=== PATIENT | female | born 1990 | race Caucasian/White ===

== ENCOUNTER 2021-11-02 22:21 | Inpatient (IN) | payer BC, SELFPAY ==
[2021-11-02] MEDS ORDERED: NA CHLORIDE 0.9% 1,000 ML ONE (23:07)
[2021-11-02] MEDS ORDERED: ONDANSETRON 4 MG/2 ML VIAL ONE (23:07)
[2021-11-02] MEDS ORDERED: MORPHINE 4 MG/ML SYR ONE (23:07)
[2021-11-02] MEDS ORDERED: PANTOPRAZOLE 40 MG INJ ONE (23:07)
--- OUTSIDE RECORDS SUMMARY | 2021-11-03 00:32 | XMS REPORT | Clinical Summary ---
:1990 Author Organization [facility] MD [facility] Address [address] [place] [address] Care Team Providers Name Role Phone Chris Estrada MD Unavailable Fernando Estrada MD Unavailable Krystyna Clarke MD Primary Care Provider [phone] Allergies No known active allergies Medications Medication Sig Dispensed Refills Start Date End Date Status mv-min/iron/folic/calcium Take by mouth. 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 Surgical History Surgery Date Site/Laterality Comments DILATION AND CURETTAGE OF 07/21/2009 - 07/20/2010 molar UTERUS ELBOW FRACTURE SURGERY 07/21/1993 - 07/20/1994 Left WISDOM TOOTH EXTRACTION 07/21/2008 - 07/20/2009 Medical History Medical History Date Comments Migraine 2000 Anxiety 2002 Obsessive-compulsive disorder 2012 Mastitis 2017 while nursing Family History Medical History Relation Name Comments Other Maternal Aunt cystic breasts - 2 aunts -Breast cancer Maternal Grandmother Other Mother cystic breasts Stomach cancer Paternal Aunt Ovarian cancer Neg Hx Pancreatic cancer Neg Hx Prostate cancer Neg Hx Relation Name Status Comments Maternal Aunt Maternal Grandmother Mother Paternal Aunt Social History Tobacco Use Types Packs/Day Years Used Date Never Assessed Sex Assigned at Date Recorded Female 08/11/2019 10:43 AM [employer] Obstetrics History Last Filed Vital Signs Not on file Plan of Treatment Health Maintenance Due Date Last Done Comments COVID-19 Vaccination (1) 1995 Results Not on fileafter 11/03/2020 Insurance Payer Benefit Plan / Subscriber ID Effective Dates Phone Addre ss Type Group [employer] [place] POS [id number] 2019-Present [id number] [place] [address] Care Teams Pouncer Relationship Specialty Start Date End Date Chris Estrada, PCP - External Follow Up A 04/0904/09/27 [facility] [place] [address] Chris Estrada, PCP - External Referring 8 04/09/[address] [place] [place] [address] Denisha Clarke PCP - General Breast Surgery 04/09/1804/09 MD Gagandeep [address] [place] [phone]
--- OUTSIDE RECORDS SUMMARY | 2021-11-03 00:36 | XMS REPORT | Continuity of Care Document ---
:1990 Author Organization [facility] t Address [address] [place] [address] Care Team Providers Name Role Phone Tricia BELLE, Krystyna Donis Primary Care Physician [phone] ANUSHKA Attending Clinician Unavailable Ebrahikevon WATCH REPAIR TECHNICIAN Attending Clinician TOMAS Attending Clinician Unavailable Elizabeth JARAMILLO Attending Clinician Fe CELAYAP Attending Clinician FE Attending Clinician Unavailable RADIOLOGY Attending Clinician Unavailable Francine BELLE, N Attending Clinician Anushka BELLE Attending Clinician Only, Test Attending Clinician Unavailable Corey BELLE Attending Clinician Nayan BELLE, E Attending Clinician Doctor Unassigned, Name Attending Clinician Unavailable Chad CELAYAP, F Attending Clinician Dylan WATCH REPAIR TECHNICIAN Attending Clinician ANUSHKA Admitting Clinician Unavailable Anushka BELLE Admitting Clinician Payers Payer Name Policy Type Policy Number Effective Date Expiration Date Abhilash briggs CIGSIMBA II [id number] 2020 00:00:00 Problems Condition Condition Condition Status Onset Resolution Last Treating Co mments Source Name Details Category Date Date Treatment Clinician Date Nausea and Nausea and Disease Active Overview : Univers vomiting, vomiting, 08 Formattin i ty of intractabi intractabi 00:00: g of this [place] lity of lity of 00 note Medical vomiting vomiting might be Bran ch not not different specified, specified, from the unspecifie unspecifie original. d vomiting d vomiting Added type type automatic ally from request for surgery [id number] Abdominal Abdominal Disease Active Overview: Univers pain, pain, 08 Formattin ity of epigastric epigastric 00:00: g of this [place] 00 note Medical might be Branch different from the original. Added automatic ally from request for surgery [id number] Mammograph Mammograph Disease Active M D ic mass of ic mass of 9-30 An derso right right 00:00: n breast breast 00 39 weeks 39 weeks Disease Active Unive rs gestation gestation 8-04 ity of of of 00:00: [place] 00 [facility] Rh Rh Disease Active Univers negative negative 8-04 ity of status status 00:00: [place] during during 00 Medical Bran ch in third in third trimester, trimester, antepartum antepartum Group B Group B Disease Active Univers streptococ streptococ 8-04 it y of [facility] 00:00: [place] infection infection 00 [facility] during during Branch Disease Active Uni vers 3-03 ity of 00:00: [place] 00 [facility] 15 weeks 15 weeks Disease Active Unive rs gestation gestation 2-15 ity of of of 00:00: [place] 00 [facility] Supervisio Supervisio Disease Active U nivers n of high n of high 2-15 ity of risk risk 00:00: [place] 00 [facility] in second in second Bran ch trimester trimester Nausea and Nausea and Disease Active U nivers vomiting vomiting 2-15 ity of during during 00:00: [place] 00 [facility] prior to prior to Branch 22 weeks 22 weeks gestation gestation Dizziness Dizziness Disease Active Uni vers 2-15 ity of 00:00: [place] 00 Medical Branch Headache Headache Disease Active Unive rs 2-15 ity of 00:00: [place] 00 [facility] Pain Pain Disease Active 2014-07 Univers pelvic pelvic 2-07 ity of 00:00: [place] 00 [facility] Disease Active 2014-07 Uni vers with with 2-07 ity of inconclusi inconclusi [place] Medica l viability viability Bran ch Allergies, Adverse Reactions, Alerts Allergy Allergy Status Severity Reaction(s) Onset Inactive Treating Comm ents Source Name Type Date Date Clinician NO KNOWN Drug Active Univers ALLERGIE Class ity of S [facility] Family History Family Member Diagnosis Comments Start Date Stop Date Source Family member Ovarian cancer MD Cecilio butler Family member Pancreatic cancer MD Davey nderson Family member Prostate cancer And ersbertrand Maternal aunt Other MD Spicer Maternal grandmother -Breast cancer MD Spicer Natural mother Other MD Christianne friedman Paternal aunt Stomach cancer MD Cecilio butler Social History Social Habit Start Date Stop Date Quantity Comments Source Exposure to Not sure [facility] SARS-CoV-2 (event) [facility] Branch Alcohol intake 2021-02-18 2021-02-18 0 /d [facility] 00:00:00 00:00:00 [facility] Tobacco use and 2015-06-19 2015-06-19 Never used [facility] exposure 00:00:00 00:00:00 [facility] Sex [birth year] [facility] 00:00:00 00:00:00 [facility] Smoking Status Start Date Stop Date Source Never smoker [facility] Medications Ordered Filled Start Stop Current Ordering Indication Dosage Frequency Signature Comments Components Source Medication Medication Date Date Medication? Clinician (SIG) Name Name FLUOXETINE Yes Take by Uni vers HCL (PROZAC 8-01 mouth. ity of ORAL) 17:00: [address] FLUOXETINE Yes Take by Uni vers HCL (PROZAC 8-01 mouth. ity of ORAL) 12:00: [address] FLUOXETINE Yes Take by Uni vers HCL (PROZAC 1-15 mouth. ity of ORAL) 17:18: [address] FLUOXETINE Yes Take by Uni vers HCL (PROZAC 1-15 mouth. ity of ORAL) 17:18: [address] FLUOXETINE Yes Take by Uni vers HCL (PROZAC 1-15 mouth. ity of ORAL) 17:18: [place] 24 Medical Branch lactated 2020- No 1000mL at 42 Unive rs ringers IV 1-15 01-15 mL/hr, ity of infusion 14:45: 14:58 1,000 mL, Demetrius as 1,000 mL 00 :00 IV Medical Infusion, Branch ONCE, 1 dose, 08/04/20 at 0845, Routine, DSU Pre-op pantoprazol Yes [id number] 20mg Take 1 Univers e 20 mg EC 1-15 tablet by ity of tablet 00:00: mouth [place] 00 daily. Medical Branch pantoprazol Yes [id number] 20mg Take 1 Univers e 20 mg EC 1-15 tablet by ity of tablet 00:00: mouth [place] 00 daily. Medical Branch pantoprazol Yes [id number] 20mg Take 1 Univers e 20 mg EC 1-15 tablet by ity of tablet 00:00: mouth [place] 00 daily. Medical Branch pantoprazol Yes [id number] 20mg Take 1 Univers e 20 mg EC 1-15 tablet by ity of tablet 00:00: mouth [place] 00 daily. Medical Branch pantoprazol Yes [id number] 20mg Take 1 Univers e 20 mg EC 1-15 tablet by ity of tablet 00:00: mouth [place] 00 daily. Medical Branch pantoprazol 2020- No [id number] 20mg Take 1 Univers e 1-15 01-15 tablet by ity of (PROTONIX) 00:00: 00:00 mouth [place] 20 mg EC 00 :00 daily. Medical [facility] Branch FLUOXETINE Yes Take by Uni vers HCL (PROZAC 1-07 mouth. ity of ORAL) 20:35: [place] [address] Medical Branch FLUOXETINE Yes Take by Uni vers HCL (PROZAC 1-07 mouth. ity of ORAL) 20:35: [place] [address] Medical [place] FLUOXETINE Yes Take by Uni vers HCL (PROZAC 1-07 mouth. ity of ORAL) 20:35: [place] [address] Medical Branch FLUOXETINE Yes Take by Uni vers HCL (PROZAC 1-07 mouth. ity of ORAL) 20:35: [place] [address] Medical [place] cholestyram Yes [id number] 2g Take 0.5 Univers ine 4 gram 1-07 Packets by ity of powder 00:00: mouth 3 [place] (three) Medical times Branch daily with meals. cholestyram Yes [id number] 2g Take 0.5 Univers ine 4 gram 1-07 Packets by ity of powder 00:00: mouth 3 [place] (three) Medical times Branch daily with meals. cholestyram Yes [id number] 2g Take 0.5 Univers ine 4 gram 1-07 Packets by ity of powder 00:00: mouth 3 [place] (three) Medical times Branch daily with meals. cholestyram Yes [id number] 2g Take 0.5 Univers ine 4 gram 1-07 Packets by ity of powder 00:00: mouth 3 [place] (three) Medical times Branch daily with meals. cholestyram Yes [id number] 2g Take 0.5 Univers ine 4 gram 1-07 Packets by ity of powder 00:00: mouth [place] (three) Medical times Branch daily with meals. cholestyram Yes [id number] 2g Take 0.5 Univers ine 4 gram 1-07 Packets by ity of powder 00:00: mouth [place] (three) Medical times Branch daily with meals. cholestyram Yes [id number] 2g Take 0.5 Univers ine 4 gram 1-07 Packets by ity of powder 00:00: mouth 3 [place] (three) Medical times Branch daily with meals. cholestyram Yes [id number] 2g Take 0.5 Univers ine 4 gram 1-07 Packets by ity of powder 00:00: mouth 3 [place] (three) Medical times Branch daily with meals. cholestyram Yes [id number] 2g Take 0.5 Univers ine 4 gram 1-07 Packets by ity of powder 00:00: mouth 3 [place] (three) Medical times Branch daily with meals. ondansetron 2019-07 2020- No 4mg 4 mg, Slow Univers (ZOFRAN 0-28 10-28 IV Push, ity of (PF)) 19:45: 19:07 ONCE, 1 [place] injection 4 00 :00 dose, Wed Med ical mg 05/17/20 Branch at 1445, KIERSTEN morpHINE 2019-07- No 4mg 4 mg, Slow Un vance injection 4 05-17 IV Push, ity of mg 19:45: 19:07 ONCE, 1 [place] 00 :00 dose, [facility] Medical 05/17/20 Branch at 1445, STAT NaCl 0.9% 2019-07- No 1000mL at 999 Uni vers (NS) bolus 0 10-28 mL/hr, ity of infusion 18:45: 19:47 1,000 mL, Demetrius as 1,000 mL 00 :00 IV Medical Infusion, Branch ONCE, 1 dose, [facility] 05/17/20 at 1345, KIERSTEN HYDROcodone 2019-07- No 1{tbl} 1 tablet, Univers -acetaminop 05-11 Oral, ity of hen (NORCO 18:15: 17:16 ONCE, 1 Demetrius as 5) 5-325 mg 00 :00 dose, [place] Med ical tablet 1 05/11/20 Branch tablet at 1315, KIERSTEN ketorolac 2019-07- No 30mg 30 mg, Unive rs (TORADOL) 05-11 Slow IV ity of injection 17:00: 15:58 Push, [place] 30 mg 00 :00 ONCE, 1 Medical dose, [facility] Branch 05/11/20 at 1200, KIERSTEN
Fa culty member approving Restricted medication : EMERGENCY ROOM, phenazopyri 2019-07- No 200mg 200 mg, U nivers dine 05-11 Oral, ONCE ity of (PYRIDIUM) 17:00: 15:58 NOW, 1 [place] tablet 200 00 :00 dose, [place] Medi nikki mg 05/11/20 Branch at 1200, KIERSTEN ondansetron 2019-07- No 4mg 4 mg, Slow Univers (ZOFRAN 05-11 IV Push, ity of (PF)) 17:00: 15:58 ONCE, 1 [place] injection 4 00 :00 dose, [place] Med ical mg 05/11/20 Branch at 1200, KIERSTEN morpHINE 2019-07- No 4mg 4 mg, Slow Un vance injection 4 05-11 IV Push, ity of mg 17:00: 15:58 ONCE, 1 [place] 00 :00 dose, [facility] Medical 05/11/20 Branch at 1200, STAT iohexol 2019-07 2020- No 120mL 120 mL, Unive rs (OMNIPAQUE 0-22 10-22 Intravenou it y of 350 16:30: 16:18 s, ONCE, 1 [place] BULK-150 00 :00 dose, Aleisha Medica l mL) 05/11/20 Branch injection at 1130, 120 mL Routine NaCl 0.9% 2019-07 2020- No 1000mL at 999 Uni vers (NS) bolus 0-22 10-22 mL/hr, ity of infusion 15:30: 17:50 1,000 mL, Demetrius as 1,000 mL 00 :00 IV Medical Infusion, Branch ONCE, 1 dose, [place] 05/11/20 at 1030, KIERSTEN ondansetron 2019-07 Yes [id number] 4mg Take 1 Univers (ZOFRAN 0-22 tablet by ity of ODT) 4 mg 00:00: mouth [place] disintegrat 00 every 8 Medic al ing tablet (eight) Branch hours as needed for Nausea and Vomiting (N/V). ondansetron 2019-07 Yes [id number] 4mg Take 1 Univers (ZOFRAN 0-22 tablet by ity of ODT) 4 mg 00:00: mouth [place] disintegrat 00 every 8 Medic al ing tablet (eight) Branch hours as needed for Nausea and Vomiting (N/V). ondansetron 2019-07 Yes [id number] 4mg Take 1 Univers (ZOFRAN 0-22 tablet by ity of ODT) 4 mg 00:00: mouth [place] disintegrat 00 every 8 Medic al ing tablet (eight) Branch hours as needed for Nausea and Vomiting (N/V). ondansetron 2019-07 Yes [id number] 4mg Take 1 Univers (ZOFRAN 0-22 tablet by ity of ODT) 4 mg 00:00: mouth [place] disintegrat 00 every 8 Medic al ing tablet (eight) Branch hours as needed for Nausea and Vomiting (N/V). ondansetron 2019- Yes [id number] 4mg Take 1 Univers (ZOFRAN 0-22 tablet by ity of ODT) 4 mg 00:00: mouth [place] disintegrat 00 every 8 Medic al ing tablet (eight) Branch hours as needed for Nausea and Vomiting (N/V). ondansetron 2019-1 Yes [id number] 4mg Take 1 Univers (ZOFRAN 0-22 tablet by ity of ODT) 4 mg 00:00: mouth [place] disintegrat 00 every 8 Medic al ing tablet (eight) Branch hours as needed for Nausea and Vomiting (N/V). ondansetron 2020-1 Yes [id number] 4mg Take 1 Univers (ZOFRAN 0-22 tablet by ity of ODT) 4 mg 00:00: mouth [place] disintegrat 00 every 8 Medic al ing tablet (eight) Branch hours as needed for Nausea and Vomiting (N/V). ondansetron 2020-1 Yes [id number] 4mg Take 1 Univers (ZOFRAN 0-22 tablet by ity of ODT) 4 mg 00:00: mouth [place] disintegrat 00 every 8 Medic al ing tablet (eight) Branch hours as needed for Nausea and Vomiting (N/V). ondansetron 2020-1 Yes [id number] 4mg Take 1 Univers (ZOFRAN 0-22 tablet by ity of ODT) 4 mg 00:00: mouth [place] disintegrat 00 every 8 Medic al ing tablet (eight) Branch hours as needed for Nausea and Vomiting (N/V). ondansetron 2020-1 Yes [id number] 4mg Take 1 Univers (ZOFRAN 0-22 tablet by ity of ODT) 4 mg 00:00: mouth [place] disintegrat 00 every 8 Medic al ing tablet (eight) Branch hours as needed for Nausea and Vomiting (N/V). ondansetron 2020-1 Yes [id number] 4mg Take 1 Univers (ZOFRAN 0-22 tablet by ity of ODT) 4 mg 00:00: mouth [place] disintegrat 00 every 8 Medic al ing tablet (eight) Branch hours as needed for Nausea and Vomiting (N/V). ondansetron 2020-1 Yes [id number] 4mg Take 1 Univers (ZOFRAN 0-22 tablet by ity of ODT) 4 mg 00:00: mouth [place] disintegrat 00 every 8 Medic al ing tablet (eight) Branch hours as needed for Nausea and Vomiting (N/V). ondansetron 2020-1 Yes [id number] 4mg Take 1 Univers (ZOFRAN 0-22 tablet by ity of ODT) 4 mg 00:00: mouth [place] disintegrat 00 every 8 Medic al ing tablet (eight) Branch hours as needed for Nausea and Vomiting (N/V). ondansetron 2019-07 Yes [id number] 4mg Take 1 Univers (ZOFRAN 0-22 tablet by ity of ODT) 4 mg 00:00: mouth [place] disintegrat 00 every 8 Medic al ing tablet (eight) Branch hours as needed for Nausea and Vomiting (N/V). acetaminoph 2019-07- No [id number] 1{tbl} Take 1 U nivers en-codeine 0-22 10-30 tablet by ity of 300-30 mg 00:00: 04:59 mouth [place] tablet 00 :00 every 6 Medical (six) Branch hours as needed for Pain (scale 7-10) for up to 7 days. Indication s: acute pain acetaminoph 2019-07- No [id number] 1{tbl} Take 1 U nivers en-codeine 0-22 10-30 tablet by ity of 300-30 mg 00:00: 04:59 mouth [place] tablet 00 :00 every 6 Medical (six) Branch hours as needed for Pain (scale 7-10) for up to 7 days. Indication s: acute pain acetaminoph 2019-07- No [id number] 1{tbl} Take 1 U nivers en-codeine 0-22 10-30 tablet by ity of 300-30 mg 00:00: 04:59 mouth [place] tablet 00 :00 every 6 Medical (six) Branch hours as needed for Pain (scale 7-10) for up to 7 days. Indication s: acute pain phenazopyri 2019-07 2020- No [id number] 200mg Take 1 Univers dine 200 mg 0-22 10-25 tablet by it y of tablet 00:00: 04:59 mouth 3 [place] 00 :00 (three) Medical times Branch daily for 2 days. mv-min/iron Yes Take by MD /folic/calc 1- mouth. [place] o ium/vitK 15:11: n (WOMEN'S 52 MULTIVITAMI N ORAL) dicyclomine Yes [id number] 10mg Take 1 Univers (BENTYL) 10 5-23 capsule by it y of mg capsule 00:00: mouth 4 [place] 00 (four) Medical times Branch daily as needed for Abdominal pain. proMETHazin Yes [id number] 25mg Take 1 Univers e 25 mg 5-23 tablet by ity of tablet 00:00: mouth [place] 00 every 6 Medical (six) Branch hours as needed for Nausea and Vomiting (N/V). proMETHazin 2018-0 Yes [id number] 25mg Insert 1 Univers e 5-23 Suppositor ity of (PHENERGAN) 00:00: y into [place] 25 mg 00 rectum Medical suppository every 6 Branc h (six) hours as needed for Nausea and Vomiting (N/V). dicyclomine 2018- Yes [id number] 10mg Take 1 Univers (BENTYL) 10 5-23 capsule by it y of mg capsule 00:00: mouth 4 [place] 00 (four) Medical times Branch daily as needed for Abdominal pain. proMETHazin Yes [id number] 25mg Take 1 Univers e 25 mg 5-23 tablet by ity of tablet 00:00: mouth [place] 00 every 6 Medical (six) Branch hours as needed for Nausea and Vomiting (N/V). proMETHazin Yes [id number] 25mg Insert 1 Univers e 5-23 Suppositor ity of (PHENERGAN) 00:00: y into [place] 25 mg 00 rectum Medical suppository every 6 Branc h (six) hours as needed for Nausea and Vomiting (N/V). dicyclomine 2018- Yes [id number] 10mg Take 1 Univers (BENTYL) 10 5-23 capsule by it y of mg capsule 00:00: mouth 4 [place] 00 (four) Medical times Branch daily as needed for Abdominal pain. proMETHazin Yes [id number] 25mg Take 1 Univers e 25 mg 5-23 tablet by ity of tablet 00:00: mouth [place] 00 every 6 Medical (six) Branch hours as needed for Nausea and Vomiting (N/V). proMETHazin 0 Yes [id number] 25mg Insert 1 Univers e 5-23 Suppositor ity of (PHENERGAN) 00:00: y into [place] 25 mg 00 rectum Medical suppository every 6 Branc h (six) hours as needed for Nausea and Vomiting (N/V). dicyclomine 2018- Yes [id number] 10mg Take 1 Univers (BENTYL) 10 5-23 capsule by it y of mg capsule 00:00: mouth 4 [place] 00 (four) Medical times Branch daily as needed for Abdominal pain. proMETHazin 2018- Yes [id number] 25mg Take 1 Univers e 25 mg 5-23 tablet by ity of tablet 00:00: mouth [place] 00 every 6 Medical (six) Branch hours as needed for Nausea and Vomiting (N/V). proMETHazin Yes [id number] 25mg Insert 1 Univers e 5-23 Suppositor ity of (PHENERGAN) 00:00: y into [place] 25 mg 00 rectum Medical suppository every 6 Branc h (six) hours as needed for Nausea and Vomiting (N/V). dicyclomine 2018- Yes [id number] 10mg Take 1 Univers (BENTYL) 10 5-23 capsule by it y of mg capsule 00:00: mouth 4 [place] 00 (four) Medical times Branch daily as needed for Abdominal pain. proMETHazin Yes [id number] 25mg Take 1 Univers e 25 mg 5-23 tablet by ity of tablet 00:00: mouth [place] 00 every 6 Medical (six) Branch hours as needed for Nausea and Vomiting (N/V). proMETHazin Yes [id number] 25mg Insert 1 Univers e 5-23 Suppositor ity of (PHENERGAN) 00:00: y into [place] 25 mg 00 rectum Medical suppository every 6 Branc h (six) hours as needed for Nausea and Vomiting (N/V). dicyclomine 2018- Yes [id number] 10mg Take 1 Univers (BENTYL) 10 5-23 capsule by it y of mg capsule 00:00: mouth 4 [place] 00 (four) Medical times Branch daily as needed for Abdominal pain. proMETHazin Yes [id number] 25mg Take 1 Univers e 25 mg 5-23 tablet by ity of tablet 00:00: mouth [place] 00 every 6 Medical (six) Branch hours as needed for Nausea and Vomiting (N/V). proMETHazin Yes [id number] 25mg Insert 1 Univers e 5-23 Suppositor ity of (PHENERGAN) 00:00: y into [place] 25 mg 00 rectum Medical suppository every 6 Branc h (six) hours as needed for Nausea and Vomiting (N/V). dicyclomine 2018- Yes [id number] 10mg Take 1 Univers (BENTYL) 10 5-23 capsule by it y of mg capsule 00:00: mouth 4 [place] 00 (four) Medical times Branch daily as needed for Abdominal pain. proMETHazin Yes [id number] 25mg Take 1 Univers e 25 mg 5-23 tablet by ity of tablet 00:00: mouth [place] 00 every 6 Medical (six) Branch hours as needed for Nausea and Vomiting (N/V). proMETHazin Yes [id number] 25mg Insert 1 Univers e 5-23 Suppositor ity of (PHENERGAN) 00:00: y into [place] 25 mg 00 rectum Medical suppository every 6 Branc h (six) hours as needed for Nausea and Vomiting (N/V). dicyclomine Yes [id number] 10mg Take 1 Univers (BENTYL) 10 5-23 capsule by it y of mg capsule 00:00: mouth 4 [place] 00 (four) Medical times Branch daily as needed for Abdominal pain. proMETHazin Yes [id number] 25mg Take 1 Univers e 25 mg 5-23 tablet by ity of tablet 00:00: mouth [place] 00 every 6 Medical (six) Branch hours as needed for Nausea and Vomiting (N/V). proMETHazin Yes [id number] 25mg Insert 1 Univers e 5-23 Suppositor ity of (PHENERGAN) 00:00: y into [place] 25 mg 00 rectum Medical suppository every 6 Branc h (six) hours as needed for Nausea and Vomiting (N/V). dicyclomine Yes [id number] 10mg Take 1 Univers (BENTYL) 10 5-23 capsule by it y of mg capsule 00:00: mouth 4 [place] 00 (four) Medical times Branch daily as needed for Abdominal pain. proMETHazin Yes [id number] 25mg Take 1 Univers e 25 mg 5-23 tablet by ity of tablet 00:00: mouth [place] 00 every 6 Medical (six) Branch hours as needed for Nausea and Vomiting (N/V). proMETHazin Yes [id number] 25mg Insert 1 Univers e 5-23 Suppositor ity of (PHENERGAN) 00:00: y into [place] 25 mg 00 rectum Medical suppository every 6 Branc h (six) hours as needed for Nausea and Vomiting (N/V). dicyclomine 2018- Yes [id number] 10mg Take 1 Univers (BENTYL) 10 5-23 capsule by it y of mg capsule 00:00: mouth 4 [place] 00 (four) Medical times Branch daily as needed for Abdominal pain. proMETHazin Yes [id number] 25mg Take 1 Univers e 25 mg 5-23 tablet by ity of tablet 00:00: mouth [place] 00 every 6 Medical (six) Branch hours as needed for Nausea and Vomiting (N/V). proMETHazin Yes [id number] 25mg Insert 1 Univers e 5-23 Suppositor ity of (PHENERGAN) 00:00: y into [place] 25 mg 00 rectum Medical suppository every 6 Branc h (six) hours as needed for Nausea and Vomiting (N/V). dicyclomine Yes [id number] 10mg Take 1 Univers (BENTYL) 10 5-23 capsule by it y of mg capsule 00:00: mouth 4 [place] 00 (four) Medical times Branch daily as needed for Abdominal pain. proMETHazin Yes [id number] 25mg Take 1 Univers e 25 mg 5-23 tablet by ity of tablet 00:00: mouth [place] 00 every 6 Medical (six) Branch hours as needed for Nausea and Vomiting (N/V). proMETHazin Yes [id number] 25mg Insert 1 Univers e 5-23 Suppositor ity of (PHENERGAN) 00:00: y into [place] 25 mg 00 rectum Medical suppository every 6 Branc h (six) hours as needed for Nausea and Vomiting (N/V). dicyclomine 2018- Yes [id number] 10mg Take 1 Univers (BENTYL) 10 5-23 capsule by it y of mg capsule 00:00: mouth 4 [place] 00 (four) Medical times Branch daily as needed for Abdominal pain. dicyclomine 2018- Yes [id number] 10mg Take 1 Univers (BENTYL) 10 5-23 capsule by it y of mg capsule 00:00: mouth 4 [place] 00 (four) Medical times Branch daily as needed for Abdominal pain. proMETHazin Yes [id number] 25mg Take 1 Univers e 25 mg 5-23 tablet by ity of tablet 00:00: mouth [place] 00 every 6 Medical (six) Branch hours as needed for Nausea and Vomiting (N/V). proMETHazin Yes [id number] 25mg Insert 1 Univers e 5-23 Suppositor ity of (PHENERGAN) 00:00: y into [place] 25 mg 00 rectum Medical suppository every 6 Branc h (six) hours as needed for Nausea and Vomiting (N/V). proMETHazin Yes [id number] 25mg Take 1 Univers e 25 mg 5-23 tablet by ity of tablet 00:00: mouth [place] 00 every 6 Medical (six) Branch hours as needed for Nausea and Vomiting (N/V). proMETHazin Yes [id number] 25mg Insert 1 Univers e 5-23 Suppositor ity of (PHENERGAN) 00:00: y into [place] 25 mg 00 rectum Medical suppository every 6 Branc h (six) hours as needed for Nausea and Vomiting (N/V). dicyclomine Yes [id number] 10mg Take 1 Univers (BENTYL) 10 5-23 capsule by it y of mg capsule 00:00: mouth 4 [place] 00 (four) Medical times Branch daily as needed for Abdominal pain. proMETHazin Yes [id number] 25mg Take 1 Univers e 25 mg 5-23 tablet by ity of tablet 00:00: mouth [place] 00 every 6 Medical (six) Branch hours as needed for Nausea and Vomiting (N/V). proMETHazin Yes [id number] 25mg Insert 1 Univers e 5-23 Suppositor ity of (PHENERGAN) 00:00: y into [place] 25 mg 00 rectum Medical suppository every 6 Branc h (six) hours as needed for Nausea and Vomiting (N/V). dicyclomine Yes [id number] 10mg Take 1 Univers (BENTYL) 10 5-23 capsule by it y of mg capsule 00:00: mouth 4 [place] 00 (four) Medical times Branch daily as needed for Abdominal pain. proMETHazin Yes [id number] 25mg Take 1 Univers e 25 mg 5-23 tablet by ity of tablet 00:00: mouth [place] 00 every 6 Medical (six) Branch hours as needed for Nausea and Vomiting (N/V). proMETHazin Yes [id number] 25mg Insert 1 Univers e 5-23 Suppositor ity of (PHENERGAN) 00:00: y into [place] 25 mg 00 rectum Medical suppository every 6 Branc h (six) hours as needed for Nausea and Vomiting (N/V). FLUOXETINE 2015-07 Yes Take by Uni vers HCL (PROZAC 0-24 mouth. ity of ORAL) 15:29: [address] FLUOXETINE 2015-07 Yes Take by Uni vers HCL (PROZAC 0-24 mouth. ity of ORAL) 15:29: [address] FLUOXETINE 2015-07 Yes Take by Uni vers HCL (PROZAC 0-24 mouth. ity of ORAL) 15:29: [address] FLUOXETINE 2015-07 Yes Take by Uni vers HCL (PROZAC 0-24 mouth. ity of ORAL) 15:29: [address] FLUOXETINE 2015-07 Yes Take by Uni vers HCL (PROZAC 0-24 mouth. ity of ORAL) 15:29: [address] FLUOXETINE 2015-07 Yes Take by Uni vers HCL (PROZAC 0-24 mouth. ity of ORAL) 15:29: [address] Yes 1{tbl} Take 1 Unive rs vitamin 8-05 tablet by ity of w/FA 00:00: mouth [place] (PRENATABS 00 daily. Medical RX) tablet Branch ferrous Yes 325mg Take 1 Univers sulfate 325 8-05 tablet by ity of mg (65 mg 00:00: mouth 2 [place] iron) 00 (two) Medical tablet times Branch daily. Yes 1{tbl} Take 1 Unive rs vitamin 8-05 tablet by ity of w/FA 00:00: mouth [place] (PRENATABS 00 daily. Medical RX) tablet Branch ferrous Yes 325mg Take 1 Univers sulfate 325 8-05 tablet by ity of mg (65 mg 00:00: mouth 2 [place] iron) 00 (two) Medical tablet times Branch daily. Yes 1{tbl} Take 1 Unive rs vitamin 8-05 tablet by ity of w/FA 00:00: mouth [place] (PRENATABS 00 daily. Medical RX) tablet Branch ferrous 2016-0 Yes 325mg Take 1 Univers sulfate 325 8-05 tablet by ity of mg (65 mg 00:00: mouth 2 [place] iron) 00 (two) Medical tablet times Branch daily. 2015-0 Yes 1{tbl} Take 1 Unive rs vitamin 8-05 tablet by ity of w/FA 00:00: mouth [place] (PRENATABS 00 daily. Medical RX) tablet Branch ferrous Yes 325mg Take 1 Univers sulfate 325 8-05 tablet by ity of mg (65 mg 00:00: mouth 2 [place] iron) 00 (two) Medical tablet times Branch daily. 0 Yes 1{tbl} Take 1 Unive rs vitamin 8-05 tablet by ity of w/FA 00:00: mouth [place] (PRENATABS 00 daily. Medical RX) tablet Branch ferrous Yes 325mg Take 1 Univers sulfate 325 8-05 tablet by ity of mg (65 mg 00:00: mouth 2 [place] iron) 00 (two) Medical tablet times Branch daily. Yes 1{tbl} Take 1 Unive rs vitamin 8-05 tablet by ity of w/FA 00:00: mouth [place] (PRENATABS 00 daily. Medical RX) tablet Branch ferrous Yes 325mg Take 1 Univers sulfate 325 8-05 tablet by ity of mg (65 mg 00:00: mouth 2 [place] iron) 00 (two) Medical tablet times Branch daily. 0 Yes 1{tbl} Take 1 Unive rs vitamin 8-05 tablet by ity of w/FA 00:00: mouth [place] (PRENATABS 00 daily. Medical RX) tablet Branch ferrous Yes 325mg Take 1 Univers sulfate 325 8-05 tablet by ity of mg (65 mg 00:00: mouth 2 [place] iron) 00 (two) Medical tablet times Branch daily. 0 Yes 1{tbl} Take 1 Unive rs vitamin 8-05 tablet by ity of w/FA 00:00: mouth [place] (PRENATABS 00 daily. Medical RX) tablet Branch ferrous 0 Yes 325mg Take 1 Univers sulfate 325 8-05 tablet by ity of mg (65 mg 00:00: mouth 2 [place] iron) 00 (two) Medical tablet times Branch daily. 2015-0 Yes 1{tbl} Take 1 Unive rs vitamin 8-05 tablet by ity of w/FA 00:00: mouth [place] (PRENATABS 00 daily. Medical RX) tablet Branch ferrous Yes 325mg Take 1 Univers sulfate 325 8-05 tablet by ity of mg (65 mg 00:00: mouth 2 [place] iron) 00 (two) Medical tablet times Branch daily. Yes 1{tbl} Take 1 Unive rs vitamin 8-05 tablet by ity of w/FA 00:00: mouth [place] (PRENATABS 00 daily. Medical RX) tablet Branch ferrous Yes 325mg Take 1 Univers sulfate 325 8-05 tablet by ity of mg (65 mg 00:00: mouth 2 [place] iron) 00 (two) Medical tablet times Branch daily. Yes 1{tbl} Take 1 Unive rs vitamin 8-05 tablet by ity of w/FA 00:00: mouth [place] (PRENATABS 00 daily. Medical RX) tablet Branch Yes 1{tbl} Take 1 Unive rs vitamin 8-05 tablet by ity of w/FA 00:00: mouth [place] (PRENATABS 00 daily. Medical RX) tablet Branch ferrous Yes 325mg Take 1 Univers sulfate 325 8-05 tablet by ity of mg (65 mg 00:00: mouth 2 [place] iron) 00 (two) Medical tablet times Branch daily. ferrous Yes 325mg Take 1 Univers sulfate 325 8-05 tablet by ity of mg (65 mg 00:00: mouth 2 [place] iron) 00 (two) Medical tablet times Branch daily. Yes 1{tbl} Take 1 Unive rs vitamin 8-05 tablet by ity of w/FA 00:00: mouth [place] (PRENATABS 00 daily. Medical RX) tablet Branch ferrous Yes 325mg Take 1 Univers sulfate 325 8-05 tablet by ity of mg (65 mg 00:00: mouth 2 [place] iron) 00 (two) Medical tablet times Branch daily. Yes 1{tbl} Take 1 Unive rs vitamin 8-05 tablet by ity of w/FA 00:00: mouth [place] (PRENATABS 00 daily. Medical RX) tablet Branch ferrous Yes 325mg Take 1 Univers sulfate 325 8-05 tablet by ity of mg (65 mg 00:00: mouth 2 [place] iron) 00 (two) Medical tablet times Branch daily. Yes 1{tbl} Take 1 Unive rs vitamin 8-05 tablet by ity of w/FA 00:00: mouth [place] (PRENATABS 00 daily. Medical RX) tablet Branch ferrous 2015- Yes 325mg Take 1 Univers sulfate 325 8-05 tablet by ity of mg (65 mg 00:00: mouth 2 [place] iron) 00 (two) Medical tablet times Branch daily. Immunizations Ordered Filled Immunization Date Status Comments [facility] e Immunization Name Name Rho (d) Immune 2016-02-23 Completed University of Globulin 00:00:00 [facility] Branch Rho (d) Immune 2016-02-23 Completed University of Globulin 00:00:00 [facility] Rho (d) Immune 2016-02-23 Completed University of Globulin 00:00:00 [facility] Rho (d) Immune 2016-02-23 Completed University of Globulin 00:00:00 [facility] Rho (d) Immune 2016-02-23 Completed University of Globulin 00:00:00 [facility] Rho (d) Immune 2016-02-23 Completed University of Globulin 00:00:00 [facility] Branch Rho (d) Immune 2016-02-23 Completed University of Globulin 00:00:00 [facility] Rho (d) Immune 2016-02-23 Completed University of Globulin 00:00:00 [facility] Rho (d) Immune 2016-02-23 Completed University of Globulin 00:00:00 [facility] Rho (d) Immune 2016-02-23 Completed University of Globulin 00:00:00 [facility] Rho (d) Immune 2016-02-23 Completed University of Globulin 00:00:00 [facility] Branch Rho (d) Immune 2016-02-23 Completed University of Globulin 00:00:00 [facility] Rho (d) Immune 2016-02-23 Completed University of Globulin 00:00:00 [facility] Rho (d) Immune 2016-02-23 Completed University of Globulin 00:00:00 [facility] Rho (d) Immune 2016-02-23 Completed University of Globulin 00:00:00 [facility] TDAP 2016-01-23 Completed University of 00:00:00 [facility] TDAP 2016-01-23 Completed University of 00:00:00 [facility] TDAP 2016-01-23 Completed University of 00:00:00 [facility] TDAP 2016-01-23 Completed University of 00:00:00 [facility] Branch TDAP 2016-01-23 Completed University of 00:00:00 [facility] Branch TDAP 2016-01-23 Completed University of 00:00:00 [facility] Branch TDAP 2016-01-23 Completed University of 00:00:00 [facility] Branch TDAP 2016-01-23 Completed University of 00:00:00 [facility] Branch TDAP 2016-01-23 Completed University of 00:00:00 [facility] Branch TDAP 2016-01-23 Completed University of 00:00:00 [facility] Branch TDAP 2016-01-23 Completed University of 00:00:00 [facility] Branch TDAP 2016-01-23 Completed University of 00:00:00 [facility] Branch TDAP 2016-01-23 Completed University of 00:00:00 [facility] Branch TDAP 2016-01-23 Completed University of 00:00:00 [facility] Branch TDAP 2016-01-23 Completed University of 00:00:00 [facility] Branch Rho (d) Immune 2015-12-21 Completed University of Globulin 00:00:00 [facility] Branch Rho (d) Immune 2015-12-21 Completed University of Globulin 00:00:00 [facility] Branch Rho (d) Immune 2015-12-21 Completed University of Globulin 00:00:00 [facility] Branch Rho (d) Immune 2015-12-21 Completed University of Globulin 00:00:00 [facility] Branch Rho (d) Immune 2015-12-21 Completed University of Globulin 00:00:00 [facility] Branch Rho (d) Immune 2015-12-21 Completed University of Globulin 00:00:00 [facility] Branch Rho (d) Immune 2015-12-21 Completed University of Globulin 00:00:00 [facility] Branch Rho (d) Immune 2015-12-21 Completed University of Globulin 00:00:00 [facility] Branch Rho (d) Immune 2015-12-21 Completed University of Globulin 00:00:00 [facility] Branch Rho (d) Immune 2015-12-21 Completed University of Globulin 00:00:00 [facility] Branch Rho (d) Immune 2015-12-21 Completed University of Globulin 00:00:00 [facility] Branch Rho (d) Immune 2015-12-21 Completed University of Globulin 00:00:00 [facility] Branch Rho (d) Immune 2015-12-21 Completed University of Globulin 00:00:00 [facility] Branch Rho (d) Immune 2015-12-21 Completed University of Globulin 00:00:00 [facility] Rho (d) Immune 2015-12-21 Completed University of Globulin 00:00:00 [facility] Vital Signs Vital Name Observation Time Observation Value Comments Source Systolic blood 2021-05-11 15:19:00 109 mm[Hg] Univer sity of pressure [place] [facility] Diastolic blood 2021-05-11 15:19:00 73 mm[Hg] Unive rsity of pressure [place] [facility] Heart rate 2021-05-11 15:19:00 74 /min Universi ty of [place] [facility] Body temperature 2021-05-11 15:19:00 36.78 Giulia Univ ersity of [place] [facility] Respiratory rate 2021-05-11 15:19:00 16 /min Univ ersity of [place] [facility] Body weight 2021-05-11 15:19:00 71.396 kg Universi ty [facility] [place] [facility] BMI 2021-05-11 15:19:00 22.58 kg/m2 Universi [facility] [place] [facility] Oxygen saturation in 2021-05-11 15:19:00 98 /min University of Arterial blood by [place] [employer] [facility]ki Pulse oximetry Branch Systolic blood 2021-02-18 17:00:00 112 mm[Hg] Univer sity of pressure [place] [facility] Diastolic blood 2021-02-18 17:00:00 79 mm[Hg] Unive rsity of pressure [place] [facility] Heart rate 2021-02-18 17:00:00 64 /min Universi ty of [place] [facility] Body temperature 2021-02-18 17:00:00 36.72 Giulia Univ ersity of [place] [facility] Respiratory rate 2021-02-18 17:00:00 17 /min Univ ersity of [place] [facility] Body height 2021-02-18 17:00:00 177.8 cm Universi ty [facility] [place] [facility] Body weight 2021-02-18 17:00:00 68.04 kg [facility]i [facility] [place] [facility] BMI 2021-02-18 17:00:00 21.52 kg/m2 Universi ty [facility] [place] [facility] Oxygen saturation in 2021-02-18 17:00:00 99 /min University of Arterial blood by OB10 nikki Pulse oximetry Branch Systolic blood 2020-08-04 17:05:00 98 mm[Hg] Univer sity of pressure [place] [facility] Diastolic blood 2020-08-04 17:05:00 66 mm[Hg] Unive rsity of pressure [place] [facility] Heart rate 2020-08-04 17:05:00 48 /min Universi ty of [place] [facility] Oxygen saturation in 2020-08-04 17:05:00 100 /min University of Arterial blood by [facility] Pulse oximetry Branch Body temperature 2020-08-04 16:35:00 36.33 Giulia Univ ersity of [place] [facility] Respiratory rate 2020-08-04 15:01:00 16 /min Univ ersity of [place] [facility] Body height 2020-08-04 15:01:00 177.8 cm Universi ty of [place] [facility] Body weight 2020-08-04 15:01:00 65.772 kg [facility]i ty [facility] [place] [facility] BMI 2020-08-04 15:01:00 20.81 kg/m2 [facility]i [facility] [place] [facility] Systolic blood 2020-07-27 20:31:00 112 mm[Hg] Univer sity of pressure [place] [facility] Diastolic blood 2020-07-27 20:31:00 72 mm[Hg] Unive rsity of pressure [place] [facility] Heart rate 2020-07-27 20:31:00 77 /min Universi ty [facility] [place] [facility] Body temperature 2020-07-27 20:31:00 36.11 Giulia Univ ersity of [place] [facility] Respiratory rate 2020-07-27 20:31:00 18 /min Univ ersity of [place] [facility] Body height 2020-07-27 20:31:00 177.8 cm Universi ty [facility] [place] [facility] Body weight 2020-07-27 20:31:00 65.318 kg [facility]i [facility] [place] [facility] BMI 2020-07-27 20:31:00 20.66 kg/m2 [facility] [place] [facility] Oxygen saturation in 2020-07-27 20:31:00 98 /min University of Arterial blood by [facility] Pulse oximetry Branch Systolic blood 2020-05-17 19:06:00 113 mm[Hg] Univer sity of pressure [place] [facility] Diastolic blood 2020-05-17 19:06:00 76 mm[Hg] Unive rsity of pressure [place] [facility] Heart rate 2020-05-17 19:06:00 60 /min Universi ty [facility] [place] [facility] Respiratory rate 2020-05-17 19:06:00 16 /min [facility] ersity [facility] Oxygen saturation in 2020-05-17 19:06:00 100 /min University of Arterial blood by [facility] Pulse oximetry Branch Body temperature 2020-05-17 18:15:00 37.39 Giulia [facility] ersity [facility] Body height 2020-05-17 18:15:00 177.8 cm Universi ty of [facility] Body weight 2020-05-17 18:15:00 63.504 kg Universi ty of [facility] BMI 2020-05-17 18:15:00 20.09 kg/m2 Universi ty [facility] Systolic blood 2020-05-11 17:18:23 98 mm[Hg] Univer sity of pressure [facility] Diastolic blood 2020-05-11 17:18:23 66 mm[Hg] Unive rsity of pressure [facility] Heart rate 2020-05-11 17:18:23 51 /min Universi ty [facility] Respiratory rate 2020-05-11 17:18:23 16 /min [facility] ersity [facility] Oxygen saturation in 2020-05-11 17:18:23 99 /min University of Arterial blood by [facility] Pulse oximetry Branch Body temperature 2020-05-11 14:45:00 37.17 Giulia [facility] ersity [facility] Body weight 2020-05-11 14:45:00 63.504 kg Universi ty of [facility] BMI 2020-05-11 14:45:00 20.09 kg/m2 Universi ty [facility] Procedures Procedure Date / Time Performing Clinician Source Performed POCT GRP A STREP 2021-05-11 00:00:00 Ladonna Marin [facility] (MOLECULAR) Medical Branch POCT GRP A STREP 2021-02-18 00:00:00 Theresa Johnson [facility] (MOLECULAR) Medical Branch EGD (ENDO) 2020-08-04 15:59:28 Self Referred, [facility] Facility [facility] Medical [place] CONSENT/REFUSAL FOR 2020-08-04 14:38:44 Doctor Unassigned, No [facility] DIAGNOSIS AND TREATMENT Name Medical Branch ASSIGNMENT OF BENEFITS 2020-08-04 14:33:04 Doctor Unassigned, No [facility] Name Medical Branch ASSIGNMENT OF BENEFITS 2020-07-27 20:24:28 Doctor Unassigned, No [facility] XR KUB 2020-05-17 19:03:58 Marquita Bonilla [facility] LIPASE 2020-05-17 18:58:00 Marquita Bonilla [facility] COMP. METABOLIC PANEL 2020-05-17 18:58:00 Marquita Bonilla Un [facility] ([id number]) [facility] CBC WITH DIFF 2020-05-17 18:58:00 Marquita Bonilla [facility] URINALYSIS 2020-05-17 18:39:00 Marquita Bonilla [facility] POCT TEST 2020-05-17 18:35:00 Marquita Bonilla [facility] NOTICE OF PRIVACY 2020-05-17 17:54:46 Doctor Unassigned, No [facility] PRACTICES [facility] CONSENT/REFUSAL FOR 2020-05-17 17:54:35 Doctor Unassigned, No Un [facility] DIAGNOSIS AND TREATMENT [facility] AUTHORIZATION FOR 2020-05-15 05:01:00 Doctor Unassigned, No [facility] RELEASE OF PHI [facility] CT ABDOMEN PELVIS W 2020-05-11 16:20:59 Suly Richardson [facility] CONTRAST [facility] COMP. METABOLIC PANEL 2020-05-11 15:31:00 Suly Richardson [facility] ([id number]) [facility] CBC WITH DIFF 2020-05-11 15:31:00 Suly Richardson [facility] URINALYSIS 2020-05-11 15:25:00 Suly Richardson [facility] CONSENT/REFUSAL FOR 2020-05-11 14:32:23 [facility], [facility] Plan of Care Planned Activity Planned Date Details Comments Source Future Scheduled Test 1995 00:00:00 COVID-19 Vaccination MD Spicer (1) [code = COVID-19 Vaccination (1)] Encounters Start End Encounter Admission Attending Care Care Encounter Source Date/Time Date/Time Type Type Clinicians Facility Department ID 2021-08-15 [facility] [id number] 12:00:25 [id number] [place] [facility] 2021-05-19 Outpatient R ANUSHKA [facility] PATTY [id number] Univers 16:12:23 GEORGE ity of [facility] 2021-05-19 Emergency [facility] [id number] Univers 01:36:28 ity of [facility] 2021-05-19 Emergency [facility] [id number] Univers 00:25:43 ity of [facility] 2021-05-11 2021-05-11 Urgent Tomas, [facility] [id number] Univers 10:16:27 10:36:[address] [facility] [id number] it y of [place] [id number] Demetrius as Addison?Blea [phone] Nd serena sh[address] Medical Office Building 2021-05-11 2021-05-11 Outpatient [facility] [id number] Univers 10:20:00 10:20:00 [id number] ity of [facility] 2021-05-11 2021-05-11 Outpatient R YADIELADRIKevon [facility] [id number] Univers 10:20:00 10:20:00 LADONNA ity [facility] 2021-02-18 2021-02-18 Urgent Theresa Johnson [facility] 1.2.840. [id number] Univers 11:53:11 12:16:54 [facility] [id number] 3.10 ity of [place] [id number] Demetrius as Professio [phone] Nd serena [address] Office Building One 2021-02-18 2021-02-18 Outpatient R [facility] [id number] Univers 12:00:00 12:00:00 [id number] ity of [facility] 2021-02-18 2021-02-18 Outpatient R CHASE [facility] [id number] Univers 12:00:00 12:00:00 RAMA Hung it y of [facility] 2020-10-16 2020-10-16 Outpatient R RADIOLOGY [facility] [id number] Univers 10:20:00 10:20:00 [id number] ity of [facility] 2020-08-31 2020-08-31 Outpatient R [facility] [id number] Univers 15:00:00 15:00:00 [id number] ity of [facility] 2020-08-15 2020-08-15 Telephone Jelly [facility] [id number] Univers 00:00:00 00:00:00 Faith raymundo SPECIALTY [id number] ity of CARE [id number] [facility] [place] AT [phone] [address] 2020-08-11 2020-08-11 Telephone Anushka [facility] [id number] Univers 00:00:00 00:00:00 [facility] SPECIALTY [id number] ity of CARE [id number] [facility] AT [phone] [address] 2020-08-04 2020-08-04 [facility] 1.2.840.114 [id number] Univers 08:33:00 11:15:00 Encounter [facility] [id number] ity of [place] [id number] [facility] [phone] [address] ([facility]) 2020-08-01 2020-08-01 Laboratory Only, Adc Test [facility] 1.2.840. 114 [id number] Univers 11:53:52 12:08:52 Only Kedar Nicole [id number] ity of [place] [id number] [facility] [phone] [place] [address] Branch 2020-08-01 2020-08-01 Outpatient R [facility] [id number] Univers 11:45:00 11:45:00 [id number] ity of [facility] 2020-08-01 2020-08-01 Outpatient R [facility] [id number] Univers 11:45:00 11:45:00 ity of [facility] 2020-07-27 2020-07-27 Office Faith Escamilla Yessy [facility] 1.2 .840.114 [id number] Univers 14:27:11 14:57:11 Visit Andrew Spicer [id number] ity of [facility] [id number] [facility] AT [phone] Nd serena HODGES 2 [facility] 2020-07-27 2020-07-27 Outpatient R [facility] [id number] Univers 14:30:00 14:30:00 [id number] ity [facility] 2020-07-27 2020-07-27 Outpatient R [facility] [id number] Univers 14:30:00 14:30:00 ity of [facility] 2020-07-27 2020-07-27 Orders Doctor KHANNA 1.2.840.114 [id number] Univers 00:00:00 00:00:00 Only Unassigned, ROBSON [id number] ity of [place] [facility] [id number] Demetrius as [phone] [facility] 009 Branch 2020-05-18 2020-05-18 Outpatient [facility]MLC [facility] [id number] [facility] 00:[facility]:00 Raimundo Ayala ent Clinics 2020-05-17 2020-05-17 Emergency [facility] 1.2.840.114 [id number] Univers 13:18:00 15:46:00 Marquita Padilla [id number] ity of [place] [id number] [facility] [phone] [facility] 084 Branch 2020-05-17 2020-05-17 Orders Doctor KHANNA 1.2.840.114 [id number] Univers 00:00:00 00:00:00 Only Unassigned, ROBSON [id number] ity of [place] [facility] [id number] Demetrius as [phone] [facility] 009 Branch 2020-05-15 2020-05-15 Orders Doctor KHANNA 1.2.840.114 [id number] Univers 00:00:00 00:00:00 Only Unassigned, ROBSON [id number] ity of [place] [facility] [id number] Demetrius as [phone] [facility] 009 [place] 2020-05-11 2020-05-11 Emergency Dylan, [facility] 1.2.840.114 [id number] Univers 09:48:00 12:58:00 Suly Padilla [id number] i ty of [place] [id number] [place] [facility] [phone] [place] [id number] [place] 2020-05-11 2020-05-11 Orders Doctor JEY 1.2.840.114 [id number] Univers 00:00:00 00:00:00 Only Unassigned, ROBSON [id number] ity of [place] [facility] [id number] Demetrius as [phone] [address] Results Test Description Test Time Test Comments Results Result Comments Source POCT GRP A STREP (MOLECULAR) 2021-05-11 15:30:00 Test Item Value Reference Range Interpretation Comme nts POCT GP A STREP (test code = neg Negative - Negative 90593-9) STEVE (test code = STEVE) accurate development and interpretation of all internal controls Lab Interpretation (test code = Normal 36526-4) [facility] GRP A STREP (MOLECULAR)2021-02-18 17:18:00 Test Item Value Reference Range Interpretation Comments POCT GP A STREP (test code = negative Negative - Negative 54947-6) [facility]. METABOLIC PANEL (95418)2020-05-17 19:42:00 Test Item Value Reference Range Interpretation Comments NA (test code = 138 mmol/L 135-145 9355599127) K (test code = 3.6 mmol/L 3.5-5 4837402528) CL (test code = 102 mmol/L 98-108 0679457567) CO2 TOTAL (test code = 29 mmol/L 23-31 0507374452) AGAP (test code = 2-16 5831208619) BUN (test code = 9 mg/dL 7-23 7607163681) GLUCOSE (test code = 88 mg/dL 70-110 2544197533) CREATININE (test code 0.78 mg/dL 0.5-1.04 = 4387021767) TOTAL BILI (test code 0.7 mg/dL 0.1-1.1 = 9220432603) CALCIUM (test code = 9.5 mg/dL 8.6-10.6 6206773315) T PROTEIN (test code = 6.8 g/dL 6.3-8.2 2218245755) ALBUMIN (test code = 4.1 g/dL 3.5-5 8514364152) ALK PHOS (test code = 44 U/L 34-122 4547157192) ALTv (test code = 17 U/L 5-35 1742-6) AST(SGOT) (test code = 21 U/L 13-40 9840916448) eGFR Calculation mL/min/1.73m2 (Non-) (test code = 2887329315) eGFR Calculation mL/min/1.73m2 () (test code = 1806309161) STEVE (test code = STEVE) Association of Glomerular Filtration Rate (GFR) and Staging of Kidney Disease* + -+ + ---+| GFR (mL/min/1.73 m2) ?| With Kidney Damage ?| ?Without Kidney Damage+ -------+ ------+ ---------+| ?>90 ?| ?Stage one ?| ? Normal ?+ --+ -+ ----+| ?60-89 ?| ?Stage two ?| ? Decreased GFR ? + -+ + ---+| ?30-59 ?| ?Stage three ?| ? Stage three ? + -+ + ---+| ?15-29 ?| ?Stage four ? | ? Stage four ?+ --+ -+ ----+| ?<15 (or dialysis) ? ?| ?Stage five ? | ? Stage five ?+ --+ -+ ----+ *Each stage assumes the associated GFR level has been in effect for at least three months. ?Stages 1 to 5, with or without kidney disease, indicate chronic kidney disease. Notes: Determination of stages one and two (with eGFR >59mL/min/1.73 m2) requires estimation of kidney damage for at least three months as defined by structural or functional abnormalities of the kidney, manifested by either:Pathological abnormalities or Markers of kidney damage (including abnormalities in the composition of the blood or urine or abnormalities in imaging tests). [facility] Test Item Value Reference Range Interpretation Comments LIPASE (test code = 0890755046) 114 U/L 0-220 Lab Interpretation (test code = Normal 09014-4) [facility] WITH [id number] 19:31:00 Test Item Value Reference Range Interpretation Comments WBC (test code = See_Comment L [Automated 1890-2) message] The sy stem which generated this result transmitted reference range : 4.30 - 11.10 10*3/?L. The reference range was not used to interpret this result as normal/abnormal . RBC (test code = See_Comment [Automated 789-8) message] The sy stem which generated this result transmitted reference range : 3.93 - 5.25 10*6/?L. The reference range was not used to interpret this result as normal/abnormal . HGB (test code = 14.2 g/dL 11.6-15 718-7) HCT (test code = 41.6 % 35.7-45.2 4544-3) MCV (test code = 86.7 fL 80.6-95.5 787-2) MCH (test code = 29.6 pg 25.9-32.8 785-6) MCHC (test code = 34.1 g/dL 31.6-35.1 786-4) RDW-SD (test code = 37.7 fL 39-49.9 L 18197-4) RDW-CV (test code = 11.9 % 12-15.5 L 788-0) PLT (test code = See_Comment [Automated 777-3) message] The sy stem which generated this result transmitted reference range : 166 - 358 10*3/ ?L. The reference r april was not used to interpret this result as normal/abnormal . MPV (test code = 11.4 fL 9.5-12.9 18572-7) NRBC/100 WBC (test See_Comment [Automat ed code = 7768512070) message] The system which generated this result transmitted reference range : 0.0 - 10.0 /100 WBCs. The refer ence range was not u sed to interpret th is result as normal/abnormal . NRBC x10^3 (test code <0.01 See_Comment [Auto mated = 7581921002) message] The s ystem which generated this result transmitted reference range : 10*3/?L. The reference range was not used to interpret this result as normal/abnormal . GRAN MAT (NEUT) % 57.0 % (test code = 770-8) IMM GRAN % (test code 0.30 % = 2030173879) LYMPH % (test code = 34.9 % 736-9) MONO % (test code = 6.3 % 5905-5) EOS % (test code = 1.0 % 713-8) BASO % (test code = 0.5 % 706-2) GRAN MAT x10^3(ANC) 2.27 10*3/uL 1.88-7.09 (test code = 1756233198) IMM GRAN x10^3 (test <0.03 0-0.06 code = 3147226071) LYMPH x10^3 (test code 1.39 10*3/uL 1.32-3.29 = 731-0) MONO x10^3 (test code 0.25 10*3/uL 0.33-0.92 L = 742-7) EOS x10^3 (test code = 0.04 10*3/uL 0.03-0.39 711-2) BASO x10^3 (test code <0.03 0.01-0.07 = 704-7) Lab Interpretation Abnormal (test code = 96823-8) [facility]16:00 Test Item Value Reference Range Interpretation Comments APPEARANCE (test code = Clear Clear 1108116900) COLOR (test code = Straw Yellow A 7323193284) PH (test code = 4.8-8.0 7400996791) SP GRAVITY (test code = 1.003-1.030 8278474734) GLU U QUAL (test code = Normal Normal 8957219765) BLOOD (test code = Negative Negative 0036718557) KETONES (test code = Negative Negative 3423905376) PROTEIN (test code = Negative Negative 2887-8) UROBILIN (test code = Normal Normal 4890522699) BILIRUBIN (test code = Negative Negative 5111980798) NITRITE (test code = Negative Negative 7680475994) LEUK WU (test code = Negative Negative 4964749554) RBC/HPF (test code = See_Comment [Autom ated message] 6204260140) The system [employer] generated this result transmitted ref erence range: 0 - 3 HP F. The reference range was not used to int erpret this result as normal/abnormal . WBC/HPF (test code = See_Comment [Autom ated message] 2032502422) The system [employer] generated this result transmitted ref erence range: 0 - 5 HP F. The reference range was not used to int erpret this result as normal/abnormal . BACTERIA (test code = Negative Negative 4795635573) SQ EPITH (test code = HPF 3267772470) Lab Interpretation (test Abnormal code = 53799-7) [facility]XR [id number] 19:06:00HISTORY: Abdominal pain. FINDINGS: AP supine view of the abdomen showed unremarkable intestinal gaspattern except for evidence of mild constipation. No calcified kidneystones. No aggressive bone lesions. Cholecystectomy noted. T-shaped IUCD isin the pelvic region.Incidental note of partially sacralized L5 on the left side withpseudoarticulation noted with the upper sacrum. CONCLUSIONS: No acute findin gs. [facility], Radiant Results Inft User - 05/17/2020 2:07 PM CDTHISTORY: Abdominal pain.FINDINGS: AP supine view of the abdomen showed unremarkable intestinal gaspattern except for evidence of mild constipation. No calcified kidneystones. No aggressive bone lesions. Cholecystectomy noted. T-shaped IUCD isin the pelvic region.Incidental note of partially sacralized L5 on the left side withpseudoarticulation noted with the upper sacrum.CONCLUSIONS: No acute findings.[facility]PO[facility] [id number] 18:40:00 Test Item Value Reference Range Interpretation Comments POCT PREG (test code = 1605) Negative On board controls acceptable with Yes C Line (test code = 3574) POCT PREG LOT # (test code = 3575) [id number] POCT PREG TEST DATE (test 10/18/2021 code = 3576) Lab Interpretation (test code = Normal 83438-2) [facility] [id number] 16:52:15 No acute abnormality. No colitis or diverticulitis or hydronephrosis. Moderate stool burden. Hepatic steatosis. CT ABDOMEN PELVIS W CONTRAST 05/11/2020 11:00 AM HISTORY: Nausea, vomiting abdominal pain, gastroenteritis or colitissuspected. Left flank pain. COMPARISON: Ultrasound gallbladder 12/09/2018. DOSE: 299 mGy-cm TECHNIQUE: Axial images of the abdomen and pelvis were acquired afteradministration of 120 ml Omnipaque 350. Coronal and sagittalreconstructions were also created. FINDINGS: LOWER CHEST: The lungs bases are clear. ? HEPATOBILIARY: No hepatomegaly. Hepatic steatosis. A punctate hypodensityin segment 4B (2/39) too small to characterize. Subcentimeter hypodensityalong falciformligament suggestive of focal fatty infiltration. Top normaldiameter CBD measuring 0.6 cm compatible with reservoir phenomena relatedto cholecystectomy. SPLEEN: No splenomegaly. PANCREAS: No ductal dilation, or solid masses. ADRENAL GLANDS: No adrenal nodules. KIDNEYS: No hydronephrosis or stone. No solid mass. GI TRACT: No dilation or wall thickening. Normal appendix. Moderate stoolburden. PERITONEUMAND RETROPERITONEUM: No free air or free fluid. LYMPH NODES: No lymphadenopathy is seen. PELVIS/BLADDER: The uterus is anteverted. And intrauterine device in situ.A crenated follicle is seen in the right ovary. VESSELS: No aortic aneurysm or critical stenosis. BONES AND SOFT TISSUES: No aggressive osseous lesion. Small fat-containingumbilical hernia. [facility], Radiant Results Inft User - 05/11/2020 11:53 AM CDTCT ABDOMEN PELVIS W CONTRAST 05/11/2020 11:00 AMHISTORY: Nausea, vomiting abdominal pain, gastroenteritis or colitissuspected. Left flank pain.COMPARISON: Ultrasound gallbladder 12/09/2018.DOSE: 299 mGy-cmTECHNIQUE: Axial images of the abdomen and pelvis were acquired afteradministration of 120 ml Omnipaque 350. Coronal and sagittalreconstructions were also created.FINDINGS:LOWER CHEST: The lungs bases are clear. HEPATOBILIARY: No hepatomegaly. Hepatic steatosis. A punctate hypodensityin segment 4B (2/39) too small to characterize. Subcentimeter hypodensityalong falciform ligament suggestiveof focal fatty infiltration. Top normaldiameter CBD measuring 0.6 cm compatible with reservoir phenomena relatedto cholecystectomy.SPLEEN: No splenomegaly.PANCREAS: No ductal dilation, or solid masses.ADRENAL GLANDS: No adrenal nodules.KIDNEYS: No hydronephrosis or stone. No solid mass.GI TRACT: No dilation or wall thickening. Normal appendix. Moderate stoolburden.PERITONEUM AND RETROPERITONEUM: No free air or free fluid.LYMPH NODES: No lymphadenopathy is seen.PELVIS/BLADDER: The uterus is anteverted. And intrauterine device in situ.A crenated follicle is seen in the right ovary.VESSELS: No aortic aneurysm or critical stenosis.BONES AND SOFT TISSUES: No aggressive osseous lesion. Small fat-containingumbilical hernia.IMPRESSIONNo acute abnormality. No colitis or diverticulitis or hydronephrosis.Moderate stool burden.Hepatic steatosis.[facility]. METABOLIC PANEL (62345)2020-05-11 15:56:00 Test Item Value Reference Range Interpretation Comments NA (test code = 135 mmol/L 135-145 8020211705) K (test code = 4.0 mmol/L 3.5-5 8221613812) CL (test code = 101 mmol/L 98-108 7131706702) CO2 TOTAL (test code = 26 mmol/L 23-31 8296284636) AGAP (test code = 2-16 2913903621) BUN (test code = 11 mg/dL 7-23 9587206592) GLUCOSE (test code = 92 mg/dL 70-110 8002235809) CREATININE (test code = 0.76 mg/dL 0.5-1.04 7815354853) TOTAL BILI (test code = 1.4 mg/dL 0.1-1.1 H 4231421478) CALCIUM (test code = 9.3 mg/dL 8.6-10.6 3997302421) T PROTEIN (test code = 6.5 g/dL 6.3-8.2 0892884997) ALBUMIN (test code = 4.1 g/dL 3.5-5 9138917552) ALK PHOS (test code = 44 U/L 34-122 1839458588) ALTv (test code = 14 U/L 5-35 1742-6) AST(SGOT) (test code = 19 U/L 13-40 2452220715) eGFR Calculation mL/min/1.73m2 (Non-) (test code = 8994825537) eGFR Calculation mL/min/1.73m2 () (test code = 9123509735) STEVE (test code = STEVE) Association of Glomerular Filtration Rate (GFR) and Staging of Kidney Disease* + --+ --+ ------+| GFR (mL/min/1.73 m2) ?| With Kidney Damage ?| ?Without Kidney Damage+ --------+ --------+ +| ?>90 ?| ?Stage one ?| ? Normal ?+ ---+ ---+ -------+| ?60-89 ?| ?Stage two ?| ? Decreased GFR ? + --+ --+ ------+| ?30-59 ?| ?Stage three ?| ? Stage three ? + --+ --+ ------+| ?15-29 ?| ?Stage four ? | ? Stage four ?+ ---+ ---+ -------+| ?<15 (or dialysis) ? ?| ?Stage five ? | ? Stage five ?+ ---+ ---+ -------+ *Each stage assumes the associated GFR level has been in effect for at least three months. ?Stages 1 to 5, with or without kidney disease, indicate chronic kidney disease. Notes: Determination of stages one and two (with eGFR >59mL/min/1.73 m2) requires estimation of kidney damage for at least three months as defined by structural or functional abnormalities of the kidney, manifested by either:Pathological abnormalities or Markers of kidney damage (including abnormalities in the composition of the blood or urine or abnormalities in imaging tests). Lab Interpretation Abnormal (test code = 88463-4) [facility] [id number] 15:54:00 Test Item Value Reference Range Interpretation Comments APPEARANCE (test code = Clear Clear 5345315099) COLOR (test code = Yellow Yellow 2203044909) PH (test code = 4.8-8.0 7740484207) SP GRAVITY (test code = 1.003-1.030 6752159008) GLU U QUAL (test code = Normal Normal 3020138616) BLOOD (test code = Negative Negative 9080315010) KETONES (test code = Negative Negative 4348198404) PROTEIN (test code = Negative Negative 2887-8) UROBILIN (test code = Normal Normal 8570222826) BILIRUBIN (test code = Negative Negative 2338093434) NITRITE (test code = Negative Negative 1420665925) LEUK WU (test code = 75/uL Negative A 3138538998) RBC/HPF (test code = See_Comment H [Autom ated message] 5927785769) The system [employer] generated this result transmitted ref erence range: 0 - 3 HP F. The reference range was not used to int erpret this result as normal/abnormal . WBC/HPF (test code = See_Comment [Autom ated message] 7067852308) The system [employer] generated this result transmitted ref erence range: 0 - 5 HP F. The reference range was not used to int erpret this result as normal/abnormal . BACTERIA (test code = Few Negative A 4543407300) MUCOUS (test code = Slight Negative LPF A 4716307932) SQ EPITH (test code = HPF 3797852672) Lab Interpretation (test Abnormal code = 18593-2) [facility] with [id number] 15:41:00 Test Item Value Reference Range Interpretation Comments WBC (test code = See_Comment [Automated 6690-2) message] The sy stem which generated this result transmitted reference range : 4.30 - 11.10 10*3/?L. The reference range was not used to interpret this result as normal/abnormal . RBC (test code = See_Comment [Automated 789-8) message] The sy stem which generated this result transmitted reference range : 3.93 - 5.25 10*6/?L. The reference range was not used to interpret this result as normal/abnormal . HGB (test code = 14.9 g/dL 11.6-15 718-7) HCT (test code = 43.2 % 35.7-45.2 4544-3) MCV (test code = 85.5 fL 80.6-95.5 787-2) MCH (test code = 29.5 pg 25.9-32.8 785-6) MCHC (test code = 34.5 g/dL 31.6-35.1 786-4) RDW-SD (test code = 37.7 fL 39-49.9 L 79033-1) RDW-CV (test code = 12.0 % 12-15.5 788-0) PLT (test code = See_Comment [Automated 777-3) message] The sy stem which generated this result transmitted reference range : 166 - 358 10*3/ ?L. The reference r april was not used to interpret this result as normal/abnormal . MPV (test code = 10.9 fL 9.5-12.9 28478-1) NRBC/100 WBC (test See_Comment [Automat ed code = 9949961618) message] The system which generated this result transmitted reference range : 0.0 - 10.0 /100 WBCs. The refer ence range was not u sed to interpret th is result as normal/abnormal . NRBC x10^3 (test code <0.01 See_Comment [Auto mated = 9846134565) message] The s ystem which generated this result transmitted reference range : 10*3/?L. The reference range was not used to interpret this result as normal/abnormal . GRAN MAT (NEUT) % 61.8 % (test code = 770-8) IMM GRAN % (test code 0.20 % = 0486507741) LYMPH % (test code = 29.2 % 736-9) MONO % (test code = 7.2 % 5905-5) EOS % (test code = 0.7 % 713-8) BASO % (test code = 0.9 % 706-2) GRAN MAT x10^3(ANC) 2.67 10*3/uL 1.88-7.09 (test code = 0411976931) IMM GRAN x10^3 (test <0.03 0-0.06 code = 5982742912) LYMPH x10^3 (test code 1.26 10*3/uL 1.32-3.29 L = 731-0) MONO x10^3 (test code 0.31 10*3/uL 0.33-0.92 L = 742-7) EOS x10^3 (test code = 0.03 10*3/uL 0.03-0.39 711-2) BASO x10^3 (test code 0.04 10*3/uL 0.01-0.07 = 704-7) Lab Interpretation Abnormal (test code = 70565-7) [facility]"
[2021-11-03] MEDS ORDERED: NA CHLORIDE 0.9% 1,000 ML ONE ×4 (00:53→15:03)
[2021-11-03] MEDS ORDERED: CEFTRIAXONE 1000 MG/VIAL ONE ×2 (02:17→09:39)
[2021-11-03] MEDS ORDERED: PANTOPRAZOLE 40 MG INJ ONE ×2 (02:17→09:39)
[2021-11-03] MEDS ORDERED: NA CHLORIDE 0.9% 250 ML ONE (02:17)
[2021-11-03] MEDS ORDERED: METRONIDAZOLE 500mg IVPB 500 MG/100 ML BAG IV ONE ×2 (02:17→09:39)
[2021-11-03] MEDS ORDERED: NA CHLORIDE 0.9% 50 ML ONE (02:22)
[2021-11-03] MEDS ORDERED: NA CHLORIDE 0.9% 500 ML ONE ×2 (03:02→04:07)
--- NOTE | 2021-11-03 03:05 | ER ---
Nurse's Notes [facility] Name: Sobeida Kam Age: 31 yrs Sex: Female : 1990 Arrival Date: 11/02/2021 Time: 22:25 Bed 15 Private MD: Diagnosis: Hematemesis;Hypotension, unspecified;Dehydration;Infectious gastroenteritis and colitis, unspecified Presentation: 11/02 23:04 Chief complaint: Patient states: "I started having really bad pain in my stomach vc1 Friday. Today I started throwing up, around the second or third time I threw up I noticed streaks of blood.". Coronavirus screen: Vaccine status: Patient reports receiving the 2nd dose of the covid vaccine. Moderna diarrhea, nausea, vomiting. Client presents with at least one sign or symptom that may indicate coronavirus-19. Standard/surgical mask placed on the client. Provider contacted for isolation considerations. Ebola Screen: No symptoms or risks identified at this time. Initial Sepsis Screen: Does the patient meet any 2 criteria? HR > 90 bpm. No. Patient's initial sepsis screen is negative. Does the patient have a suspected source of infection? Yes: Acute abdominal pain. Risk Assessment: Do you want to hurt yourself or someone else? Patient reports no desire to harm self or others. Onset of symptoms is unknown. 23:04 Method Of Arrival: Ambulatory vc1 23:04 Acuity: HINA 3 vc1 Triage Assessment: 23:07 General: Appears in no apparent distress. uncomfortable, Behavior is. Pain: Complains vc1 of pain in epigastric area and umbilical area Pain does not radiate. Pain currently is 7 out of 10 on a pain scale. Quality of pain is described as sharp, shooting. GI: Abdomen is flat, non-distended, Reports diarrhea, epigastric pain, nausea, vomiting. LEATHER LEVELER: 23:07 LMP N/A - MIrena vc1 Historical: - Allergies: 23:06 No Known Allergies; vc1 - Home Meds: 23:06 None [Active]; vc1 - PSHx: 23:06 Cholecystectomy; vc1 - Immunization history:: Adult Immunizations up to date. - Social history:: Smoking status: Reported history of juuling and/or vaping. - Family history:: not pertinent. - Hospitalizations: : No recent hospitalization is reported. Screenin:09 Abuse screen: Denies threats or abuse. Nutritional screening: No deficits noted. vc1 Tuberculosis screening: No symptoms or risk factors identified. Fall Risk None identified. Assessment: 11/03 00:34 Reassessment: Patient appears in no apparent distress at this time. ke1 02:37 Reassessment: Patient appears in no apparent distress at this time. Patient is alert, ke1 oriented x 3, equal unlabored respirations, skin warm/dry/pink. on the phone with . 03:17 Reassessment: Patient appears in no apparent distress at this time. Patient is alert, ke1 oriented x 3, equal unlabored respirations, skin warm/dry/pink. sitting on the bed on cell phone. 03:30 Reassessment:. ke1 03:46 Cardiovascular: Reports chest pain, that is more like a panic attack for her, [employer] ke1 notified. EKG done. 04:30 Reassessment: Emesis noted clear green 400 ml. ag7 06:26 GI: Bowel sounds present X 4 quads. Abd is soft and non tender X 4 quads. ke1 07:00 Reassessment: RECD REPORT FROM BRITTNEY HDEZ. 31YO WF P/W ABDOMINAL PAIN AND VOMITING. bp HOSPITALIST AT B/S. PT ON ED HOLD, SEE [facility]. Vital Signs: 11/02 23:04 BP 97 / 75; Pulse 109; Resp 16; Temp 98.8; Pulse Ox 98% on R/A; Pain 7/10; vc1 23:54 BP 121 / 59; Pulse 82; Resp 16; Pulse Ox 99% on R/A; Pain 3/10; ke1 11/03 00:36 BP 80 / 52 LA Supine (auto/reg); Pulse 67; Pulse Ox 97% on R/A; ke1 00:39 BP 80 / 49; Pulse 71; Resp 19; Pulse Ox 98% on R/A; ke1 01:38 BP 91 / 60; Pulse 92; Resp 23; Temp 99.8; Pulse Ox 100% on R/A; ke1 01:49 BP 104 / 60; Pulse 73; Resp 15; Pulse Ox 98% on R/A; ke1 02:38 BP 100 / 61; Pulse 76; Resp 14; Pulse Ox 99% on R/A; ke1 02:51 BP 96 / 56; Pulse 65; Resp 14; Pulse Ox 98% ; ke1 03:10 BP 84 / 60; Pulse 85; Resp 20; Pulse Ox 100% on R/A; ke1 03:50 BP 89 / 47; Pulse 71; Resp 16; Pulse Ox 97% on R/A; ke1 06:25 BP 98 / 62; Pulse 76; Resp 19; Pulse Ox 99% on R/A; ke1 07:00 BP 88 / 60; Pulse 82; Resp 13; Pulse Ox 99% ; Weight 70.31 kg; Height 5 ft. 10 in. bp (177.80 cm); 07:00 Body Mass Index 22.24 (70.31 kg, 177.80 cm) bp ED Course: 11/02 22:25 Patient arrived in ED. bp1 22:34 Osiel Gonzales MD is Attending Physician. rn 22:59 Brittney Sanchez RN is Primary Nurse. ke1 23:06 Triage completed. vc1 23:07 Arm band placed on right wrist. vc1 23:54 Bed in low position. Call light in reach. 11/03 02:11 Shalom Gonzales MD is Hospitalizing Provider. rn 07:28 No provider procedures requiring assistance completed. Patient admitted, IV remains in bp place. 08:44 Placed in gown. Side rails up X 1. Door closed. Noise minimized. Warm blanket given. mb7 Pillow given. Administered Medications: 11/02 23:29 Drug: morphine 4 mg Route: IVP; Site: right antecubital; ke1 23:53 Follow up: Response: Pain is decreased ke 23:29 Drug: ProTONIX (pantoprazole) 40 mg Route: IVP; Site: right antecubital; ke1 23:54 Follow up: Response: Marked relief of symptoms ke 23:30 Drug: NS 0.9% 1000 ml Route: IV; Rate: 1 bolus; Site: right antecubital; ke11/03 00:34 Follow up: IV Status: Completed infusion 11/02 23:30 Drug: Zofran (Ondansetron) 4 mg Route: IVP; Site: right antecubital; ke1 23:53 Follow up: Response: Nausea is decreased 11/03 01:17 Drug: NS 0.9% 1000 ml Route: IV; Rate: 1 bolus; Site: right antecubital; ke1 09:52 Follow up: IV Status: Completed infusion; IV Intake: 1000ml bp 02:29 Drug: Rocephin (cefTRIAXone) 1 grams Route: IV; Rate: calculated rate; Site: right ke1 antecubital; 02:33 Follow up: IV Status: Completed infusion ke1 02:30 Drug: Flagyl (metroNIDAZOLE) 500 mg Volume: 100 ml; Route: IVPB; Rate: 200 ml/hr; ke1 Infused Over: 30 mins; Site: right antecubital; 03:09 Follow up: IV Status: Completed infusion ke1 03:00 Drug: NS 0.9% 500 ml Route: IV; Rate: bolus; Site: right antecubital; ke1 09:51 Follow up: IV Status: Completed infusion; IV Intake: 500ml bp 03:09 Drug: ProTONIX (pantoprazole) 8 mg/hr Route: IV; Rate: 25 ml/hr; Site: right ke1 antecubital; 09:52 Follow up: IV Status: Infusion continued upon admission bp 03:10 Drug: NS 0.9% 1000 ml Route: IV; Rate: 125 ml/hr; Site: right antecubital; ke1 09:52 Follow up: IV Status: Completed infusion; IV Intake: 1000ml bp 04:10 Drug: NS 0.9% 500 ml Route: IV; Rate: bolus; Site: right antecubital; ke1 09:51 Follow up: IV Status: Completed infusion; IV Intake: 500ml bp Intake: 09:51 IV: 500ml; Total: 500ml. bp 09:51 IV: 500ml; Total: 1000ml. bp 09:52 IV: 1000ml; Total: 2000ml. bp 09:52 IV: 1000ml; Total: 3000ml. bp Outcome: 02:12 Decision to Hospitalize by Provider. rn 11:16 Admitted to Med/surg accompanied by tech, room 212, Report called to MYNOR HDEZ bp 11:16 Condition: stable 11:16 Instructed on the need for admit. 16:32 Patient left the ED. jl7 Signatures: Osiel Gonzales MD MD rn Leal, Jahala, RN RN jl7 Anthony Samuels RN RN Liliana Pimentel Mary 7 Wen Farah RN RN vc1 Brittney Sanchez RN RN ke1 Arlene Croft RN RN ag7 Corrections: (The following items were deleted from the chart) 03:48 03:45 Pain: Complains of pain in chest Pain does not radiate. Pain currently is 8 out ke1 of 10 on a pain scale. Quality of pain is described as sharp, ke1 03:49 03:46 Reassessment: ke ke1 07:55 07:00 BP 88 / 60; Pulse 82bpm; Resp 13bpm; Pulse Ox 99%; bp bp
--- NOTE | 2021-11-03 03:05 | EDPHYS ---
Physician Documentation [facility] Name: Sobeida Kam Age: 31 yrs Sex: Female : 1990 Arrival Date: 11/02/2021 Time: 22:25 Bed 15 Private MD: ED Physician Osiel Gonzales HPI: 11/02 23:05 This 31 yrs old Female presents to ER via Unassigned with complaints of rn Abdominal Pain, Back Pain, Vomiting, -blood. 23:05 The patient presents with abdominal pain in the epigastric area, right lower quadrant. rn Onset: The symptoms/episode began/occurred 4 day(s) ago. The symptoms do not radiate. Associated signs and symptoms: Pertinent positives: nausea and vomiting, vomiting, vomiting blood, Pertinent negatives: blood in stools, fever. The symptoms are described as crampy, sharp. Modifying factors: The symptoms are alleviated by nothing, the symptoms are aggravated by movement, touching the area. Severity of pain: At its worst the pain was moderate in the emergency department the pain is unchanged. The patient has not experienced similar symptoms in the past. The patient has not recently seen a physician. Reports cholecystectomy 3 years ago. NO recent surgery. + threw up blood streaked vomit a few times tonight. . 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 - Social history:: Smoking status: Reported history of juuling and/or vaping. - Family history:: not pertinent. - Hospitalizations: : No recent hospitalization is reported. ROS: 23:05 Constitutional: Negative for fever, chills, and weight loss, Eyes: Negative for injury, rn pain, redness, and discharge, Neck: Negative for injury, pain, and swelling, Cardiovascular: Negative for chest pain, palpitations, and edema, Respiratory: Negative for shortness of breath, cough, wheezing, and pleuritic chest pain, Abdomen/GI: + abd pain/nausea/vomiting Back: Negative for injury and pain, : Negative for injury, bleeding, discharge, and swelling, MS/Extremity: Negative for injury and deformity, Skin: Negative for injury, rash, and discoloration, Neuro: Negative for headache, numbness, tingling, and seizure. Exam: 23:05 Constitutional: This is a well developed, well nourished patient who is awake, alert. rn Appears like doesn't feel well, but ambulatory to room without difficulty or assistance. Holding emesis bag. Head/Face: Normocephalic, atraumatic. Eyes: Periorbital areas with no swelling, redness, or edema. ENT: dry MM, no blood noted Cardiovascular: Tachycardic, regular Respiratory: No increased work of breathing, no retractions or nasal flaring. Abdomen/GI: soft, + epigastric and RLQ tenderness Skin: Warm, dry MS/ Extremity: Pulses equal, no cyanosis. Neuro: Awake and alert, GCS 15, oriented to person, place, time, and situation. Cranial nerves II-XII grossly intact. Motor strength 5/5 in all extremities. Sensory grossly intact. Cerebellar exam normal. Normal gait. Vital Signs: 23:04 BP 97 / 75; Pulse 109; Resp 16; Temp 98.8; Pulse Ox 98% on R/A; Pain 7/10; vc1 23:54 BP 121 / 59; Pulse 82; Resp 16; Pulse Ox 99% on R/A; Pain 3/10; ke1 04/16 00:36 BP 80 / 52 LA Supine (auto/reg); Pulse 67; Pulse Ox 97% on R/A; ke1 00:39 BP 80 / 49; Pulse 71; Resp 19; Pulse Ox 98% on R/A; ke1 01:38 BP 91 / 60; Pulse 92; Resp 23; Temp 99.8; Pulse Ox 100% on R/A; ke1 01:49 BP 104 / 60; Pulse 73; Resp 15; Pulse Ox 98% on R/A; ke1 02:38 BP 100 / 61; Pulse 76; Resp 14; Pulse Ox 99% on R/A; ke1 02:51 BP 96 / 56; Pulse 65; Resp 14; Pulse Ox 98% ; ke1 03:10 BP 84 / 60; Pulse 85; Resp 20; Pulse Ox 100% on R/A; ke1 03:50 BP 89 / 47; Pulse 71; Resp 16; Pulse Ox 97% on R/A; ke1 06:25 BP 98 / 62; Pulse 76; Resp 19; Pulse Ox 99% on R/A; ke1 07:00 BP 88 / 60; Pulse 82; Resp 13; Pulse Ox 99% ; Weight 70.31 kg; Height 5 ft. 10 in. bp (177.80 cm); 07:00 Body Mass Index 22.24 (70.31 kg, 177.80 cm) bp MDM: 11/02 22:34 Patient medically screened. rn 22:46 ED course: Orders not crossing over, in downtime, possible delay in care. rn 11/03 02:10 Differential diagnosis: appendicitis, diverticulitis, gastritis, gastroesophageal rn reflux disease, GI Bleed, non-specific abd pain, pancreatitis, Peptic Ulcer Disease, Perf. Duodenal Ulcer, Perf. Gastric Ulcer. Data reviewed: vital signs, nurses notes, lab test result(s), radiologic studies, CT scan, and as a result, I will admit patient. Counseling: I had a detailed discussion with the patient and/or guardian regarding: the historical points, exam findings, and any diagnostic results supporting the discharge/admit diagnosis, lab results, radiology results, the need for further work-up and treatment in the hospital. Response to treatment: There is no appreciated change of the patient's symptoms at this time, and as a result, I will admit patient. Admission orders: after a detailed discussion of the patient's condition and case, the admit orders are written by me. ED course: No change in abd exam, still reporting abd pain, had 2 episodes of hypotension, improved with fluids, admitted to Hospitalist service given hypotension, several episodes of hematemesis, and dehydration. Possible verna-valentin tear given vomiting and retching, last episode of emesis non-bloody, and normal h/h. . 11/02 22:44 Order name: CBC with Diff rn 11/02 22:44 Order name: CMP rn 11/02 22:44 Order name: Lipase rn 11/02 22:44 Order name: COVID-19/FLU A+B (Document "Date of Onset" if Symptomatic) rn 11/02 22:44 Order name: PT-INR rn 11/02 22:44 Order name: Ptt, Activated rn 11/03 00:19 Order name: Urine --Ancillary (enter results) cs9 11/03 03:23 Order name: CBC with Diff rn 11/03 03:32 Order name: CBC with Automated Diff; Complete Time: 03:55 EDMS 11/03 03:36 Order name: Comprehensive Metabolic Panel; Complete Time: 03:55 EDMS 11/03 03:36 Order name: Lipase; Complete Time: 03:55 EDMS 11/03 03:37 Order name: COVID-19/FLU A+B; Complete Time: 03:55 EDMS 11/03 03:37 Order name: Urine --Ancillary; Complete Time: 03:55 EDMS 11/03 03:44 Order name: Protime (+INR); Complete Time: 03:55 EDMS 11/02 22:44 Order name: CT Abd/Pelvis - IV Contrast Only rn 11/03 03:44 Order name: PTT, Activated Partial Thromb; Complete Time: 03:55 EDMS 11/03 03:56 Order name: Procal la1 11/03 03:56 Order name: Lactate la1 11/03 06:20 Order name: Lactate; Complete Time: 06:58 EDMS 11/03 06:56 Order name: Procalcitonin; Complete Time: 06:58 EDMS 11/03 07:33 Order name: CBC with Automated Diff EDMS 11/03 07:47 Order name: Comprehensive Metabolic Panel EDMS 11/03 07:57 Order name: Manual Differential EDMS 11/03 11:05 Order name: CT EDMS 11/02 22:44 Order name: IV Saline Lock; Complete Time: 22:54 rn 11/02 22:44 Order name: Labs collected and sent; Complete Time: 22:54 rn 11/02 22:44 Order name: Urine Test (obtain specimen); Complete Time: 00:33 rn Administered Medications: 11/02 23:29 Drug: morphine 4 mg Route: IVP; Site: right antecubital; ke1 23:53 Follow up: Response: Pain is decreased ke1 23:29 Drug: ProTONIX (pantoprazole) 40 mg Route: IVP; Site: right antecubital; ke1 23:54 Follow up: Response: Marked relief of symptoms ke1 23:30 Drug: NS 0.9% 1000 ml Route: IV; Rate: 1 bolus; Site: right antecubital; ke1 11/03 00:34 Follow up: IV Status: Completed infusion ke1 04/15 23:30 Drug: Zofran (Ondansetron) 4 mg Route: IVP; Site: right antecubital; ke1 23:53 Follow up: Response: Nausea is decreased ke1 11/03 01:17 Drug: NS 0.9% 1000 ml Route: IV; Rate: 1 bolus; Site: right antecubital; ke1 09:52 Follow up: IV Status: Completed infusion; IV Intake: 1000ml bp 02:29 Drug: Rocephin (cefTRIAXone) 1 grams Route: IV; Rate: calculated rate; Site: right ke1 antecubital; 02:33 Follow up: IV Status: Completed infusion ke1 02:30 Drug: Flagyl (metroNIDAZOLE) 500 mg Volume: 100 ml; Route: IVPB; Rate: 200 ml/hr; ke1 Infused Over: 30 mins; Site: right antecubital; 03:09 Follow up: IV Status: Completed infusion ke1 03:00 Drug: NS 0.9% 500 ml Route: IV; Rate: bolus; Site: right antecubital; ke1 09:51 Follow up: IV Status: Completed infusion; IV Intake: 500ml bp 03:09 Drug: ProTONIX (pantoprazole) 8 mg/hr Route: IV; Rate: 25 ml/hr; Site: right ke1 antecubital; 09:52 Follow up: IV Status: Infusion continued upon admission bp 03:10 Drug: NS 0.9% 1000 ml Route: IV; Rate: 125 ml/hr; Site: right antecubital; ke1 09:52 Follow up: IV Status: Completed infusion; IV Intake: 1000ml bp 04:10 Drug: NS 0.9% 500 ml Route: IV; Rate: bolus; Site: right antecubital; ke1 09:51 Follow up: IV Status: Completed infusion; IV Intake: 500ml bp Disposition Summary: 11/03/21 02:12 Hospitalization Ordered Hospitalization Status: Inpatient Admission rn Provider: Shalom Gonzales rn Condition: Stable rn Problem: new rn Symptoms: are unchanged rn Bed/Room Type: Standard rn Location: [facility] ER HOLD(11/03/21 11:57) bp Room Assignment: ERHOLD-(11/03/21 11:57) bp Diagnosis - Hematemesis rn - Hypotension, unspecified rn - Dehydration rn - Infectious gastroenteritis and colitis, unspecified rn Forms: - Medication Reconciliation Form rn - SBAR form rn Signatures: Dispatcher [employer] EDOsiel Munguia MD MD rn Juan, Mal em1 Geovanni Talbot, DAIRY MANUFACTURING TECHNOLOGIST-C DAIRY MANUFACTURING TECHNOLOGIST-Cla1 Katia Lowery RN RN cg Anthony Samuels, RN RN bp Wen Farah, RN RN vc1 Maico Sanchez, RN RN ke1 Corrections: (The following items were deleted from the chart) 02:53 02:12 Telemetry/MedSurg (Inpatient) rn cg 02:53 02:12 rn cg 09:41 02:53 [facility] ER HOLD cg em1 09:41 02:53 ERHOLD- cg em1 11:57 09:41 Telemetry/MedSurg (Inpatient) em1 bp 11:57 09:41 212 em1 bp
[2021-11-03 03:31] LABS: Absolute Lymphocytes (CBC) 0.6 K/uL (0.7-4.9); Hematocrit 45.7 % (36.0-45.0); Lymphocytes % 5.4 % (15.3-44.8); MPV 9.5 fL (7.6-11.3); RBC Red Blood Cell Count 5.23 M/uL (3.86-4.86)
[2021-11-03 03:33] LABS: ALT/SGPT 26 U/L (12-78); AST/SGOT 13 U/L (15-37); Albumin 4.3 g/dL (3.4-5.0); Alkaline Phosphatase 64 U/L (45-117); BUN Blood Urea Nitrogen 7 mg/dL (7-18); Bicarbonate 24 mmol/L (21-32); Bilirubin Total 1.2 mg/dL (0.2-1.0); Glucose Level 119 mg/dL (74-106); Lipase 111 U/L (73-393); Potassium 3.7 mmol/L (3.5-5.1); Protein, Total 7.4 g/dL (6.4-8.2); Sodium Level 139 mmol/L (136-145)
[2021-11-03 03:37] LABS: SARS-COV-2 RT PCR NEGATIVE (NEGATIVE)
[2021-11-03 03:43] LABS: Protime INR 1.5
--- NOTE | 2021-11-03 03:55 | P.HP ---
Certification for Inpatient Patient admitted to: Inpatient With expected LOS: >2 Midnights Patient will require the following post-hospital care: None Practitioner: I am a practitioner with admitting privileges, knowledge of patient current condition, hospital course, and medical plan of care. Services: Services provided to patient in accordance with Admission requirements found in Title 42 Section 412.3 of the Code of Federal Regulations <Geovanni Talbot - Last Filed: 11/03/21 03:45> Patient History Date of Service: 11/03/21 Reason for admission: Enteritis, hypotension History of Present Illness: 31-year-old female with no significant past medical history presents emergency department for nausea, vomiting, diarrhea and abdominal pain. Patient reports that she has chronic diarrhea after her cholecystectomy but began having abdominal pain earlier this week, started having vomiting Friday evening, patien t reports vomiting more than 10 times since last night after the second and third time she did have about 3 episodes with a small amount of blood streaking in her vomit. Patient was evaluated in the emergency department her labs were significant for mild leukocytosis and hemoconcentration her CT showed enteritis pattern while patient was in the emergency department she did have some hypotension with blood pressures in the 80s over 60s. Patient now able to tolerate some clear liquids has not vomited since around 2300. ED provider was asked admit for further evaluation and management of enteritis, hypotension, abdominal pain and hematemesis. - Past Medical/Surgical History Past Medical History: Patient denies medical history -: Cholecystectomy Psychosocial/ Personal History: Patient lives at home with family - Family History Family History: Reviewed- Non-Contributory - Social History Smoking Status: Never smoker Counseled patient to stop smoking for: less than 10 minutes Alcohol use: No CD- Drugs: No Caffeine use: Yes <Geovanni Talbot - Last Filed: 11/03/21 03:45> Date of Service: 11/03/21 <Shalom Gonzales - Last Filed: 11/03/21 19:20> Home Medications: NK [No Home Meds] 11/03/21 Review of Systems 10-point ROS is otherwise unremarkable Gastrointestinal: Nausea, Vomiting, Abdominal Pain <Geovanni Talbot - Last Filed: 11/03/21 03:45> Physical Examination - Physical Exam General: Alert, In no apparent distress, Oriented x3 HEENT: Atraumatic, PERRLA, Mucous membr. moist/pink, EOMI, Sclerae nonicteric Neck: Supple, 2+ carotid pulse no bruit, No LAD, Without JVD or thyroid abnormality Respiratory: Clear to auscultation bilaterally, Normal air movement Cardiovascular: Regular rate/rhythm, Normal S1 S2 Capillary refill: <2 Seconds Gastrointestinal: Hyperactive, Tenderness (mild generalized abd tenderness) Musculoskeletal: No tenderness Integumentary: No rashes Neurological: Normal speech, Normal strength at 5/5 x4 extr, Normal tone, Normal affect Lymphatics: No axilla or inguinal lymphadenopathy - Studies Laboratory Data (last 24 hrs) 11/02/21 22:44: Sodium 139, Potassium 3.7, BUN 7, Creatinine 0.72, Glucose 119 H, Total Bilirubin 1.2 H, AST 13 L, ALT 26, Alkaline Phosphatase 64, Lipase 111 11/02/21 22:44: WBC 11.7 H, Hgb 15.4 H, Hct 45.7 H, Plt Count 207 11/02/21 20:15: PT 16.6 H, INR 1.50, APTT 39.7 H <Geovanni Talbot - Last Filed: 11/03/21 03:45> - Studies Laboratory Data (last 24 hrs) 11/02/21 22:44: Sodium 139, Potassium 3.7, BUN 7, Creatinine 0.72, Glucose 119 H, Total Bilirubin 1.2 H, AST 13 L, ALT 26, Alkaline Phosphatase 64, Lipase 111 11/02/21 22:44: WBC 11.7 H, Hgb 15.4 H, Hct 45.7 H, Plt Count 207 11/02/21 20:15: PT 16.6 H, INR 1.50, APTT 39.7 H <Shalom Gonzales - Last Filed: 11/03/21 19:20> Assessment and Plan - Plan Assessment: Nausea/vomiting/diarrhea secondary to enteritis Hypotension related to above Hematemesisresolved Plan: Nausea/vomiting/diarrhea secondary to enteritis: Continue IV fluids, patient tolerating clear liquids at this time advance as tolerated. Patient with mild leukocytosis/hemoconcentration we will cover with antibiotics Rocephin/Flagyl. Continue IV fluids. Hypotension related to above: Continue IV fluids, patient had 2.5 L bolus in the ER blood pressure still soft at this time. Believe this is related to hypovolemia from GI loss, doubt sepsis/septic shock. Will obtain lactate level. Hematemesisresolved: Patient reports vomiting more than 10 times last night no blood in vomit initially, in the middle of her multiple episodes a few times she did notice some blood streaking in her vomit suspect small Citlalli-Harley tear, patient no longer having any blood in her vomit. Was started on Protonix drip in the ER we will continue for the time being. We will consider GI consult. DVT PPX:Lovenox Code status:Full Discharge Plan: Home Plan to discharge in: 48 Hours - Advance Directives Does patient have a Living Will: No Does patient have a Durable POA for Healthcare: No - Code Status/Comfort Care Code Status Assessed: Yes (Full code) Critical Care: No Time Spent Managing Pts Care (In Minutes): 55 <Geovanni Talbot - Last Filed: 11/03/21 03:45> - Plan I agree with plan of care as noted above In addition, patient continues to remain hypotensive Possibly still behind/hypovolemic versus medication reaction/allergy versus bleed Very unlikely ongoing bleed at this point, patient without any worsening of her symptoms/exam, no hematemesis since she has been here Patient does appear significantly dry, has low urine output, will give 1 additional liter bolus Does, my exam earlier this morning, patient appeared flushed, some mild blanching erythema of face, neck/upper chest, bilateral arms down to wrists, not classic urticaria Patient without any itching There is a possibility of an anaphylaxis reaction causing hypotension, however not very typical presentation. We will hold off on epi at this time. Patient without any swelling, no difficulty breathing. Will give steroids and Benadryl x1. Monitor closely in ICU for now Significant GI history GI consulted <Shalom Gonzales - Last Filed: 11/03/21 19:20>
[2021-11-03] MEDS ORDERED: ONDANSETRON 4 MG/2 ML VIAL ONE (04:47)
[2021-11-03] MEDS ORDERED: SODIUM CHLORIDE 0.9% 10ML INJ IV PRN (06:26)
[2021-11-03] MEDS: NA CHLORIDE 0.9% 1,000 ML IV SCH ×3 (06:26→16:37)
[2021-11-03 07:22] LABS: Absolute Lymphocytes (CBC) 0.4 K/uL (0.7-4.9); Hematocrit 35.1 % (36.0-45.0); MPV 9.3 fL (7.6-11.3); RBC Red Blood Cell Count 4.08 M/uL (3.86-4.86)
[2021-11-03] MEDS ORDERED: DIPHENHYDRAMINE 50 MG/ML VIAL IV ONE (07:34)
[2021-11-03 07:39] LABS: ALT/SGPT 17 U/L (12-78); AST/SGOT 9 U/L (15-37); Alkaline Phosphatase 46 U/L (45-117); BUN Blood Urea Nitrogen 6 mg/dL (7-18); Bicarbonate 23 mmol/L (21-32); Bilirubin Total 1.3 mg/dL (0.2-1.0); Glucose Level 101 mg/dL (74-106); Potassium 3.7 mmol/L (3.5-5.1); Protein, Total 5.3 g/dL (6.4-8.2); Sodium Level 142 mmol/L (136-145)
[2021-11-03] MEDS: METHYLPREDNISOLONE 40 MG INJ IV SCH ×3 (07:45→16:37)
[2021-11-03 07:57] LABS: Blood Morphology Comment NOT SEEN (NOT SEEN); Platelet Estimate ADEQ
[2021-11-03] MEDS ORDERED: ENOXAPARIN 40 MG/0.4 ML SQ SCH (09:00)
[2021-11-03] MEDS: METRONIDAZOLE 500mg IVPB 500 MG/100 ML BAG IV SCH ×2 (09:00→16:37)
[2021-11-03] MEDS: PANTOPRAZOLE 40 MG INJ IVP SCH ×2 (09:00→20:01)
[2021-11-03] MEDS: CEFTRIAXONE 1,000 MG in NA CHLORIDE 0.9% 50 ML IVPB SCH (09:00)
[2021-11-03] MEDS ORDERED: DIPHENHYDRAMINE 50 MG/ML VIAL ONE (09:39)
[2021-11-03] MEDS ORDERED: NA CHLORIDE 0.9% 100 ML IV ONE (09:39)
[2021-11-03] MEDS ORDERED: METHYLPREDNISOLONE 40 MG INJ ONE (09:39)
--- NOTE | 2021-11-03 11:04 | RAD REPORT ---
EXAM DESCRIPTION: CT - Abdomen Pelvis W Contrast - 11/03/2021 4:59 am CLINICAL HISTORY: 31 years Female PAIN TECHNIQUE: Axial CT imaging of the abdomen and pelvis was performed following the administration of intravenous contrast.. Oral contrast was not administered. Sagittal and coronal reconstructed image s were then performed. The CT study is performed according to ALARA (as low as reasonably achievabl e) or ALARA/IMAGE GENTLY, with automatic adjustment of mA and/or kV according to patient size. Performed on: 11/03/2021 at 1:05 AM. COMPARISON: No prior studies were available for comparison. FINDINGS: Lung bases: The lung bases are clear. Liver: The liver is normal in size and configuration. No focal hepatic abnormalities are identified. Liver attenuation is within normal limits. The hepatic and portal veins are patent. Spleen: The spleen is normal is size, configuration and attenuation. Gallbladder and bile duct: The gallbladder is surgically absent. There is no biliary ductal dilatat ion. Pancreas: The pancreas is grossly normal in size and configuration. Adrenal Glands: The adrenal glands are normal in size and configuration. Kidneys: The kidneys are normal in size and configuration. There is no evidence of hydronephrosis. Th ere is no evidence of nephrolithiasis. No definite solid or cystic renal mass lesions are identified. Stomach: The stomach is grossly normal. There is no definite hiatal hernia. Bowel: The bowel gas pattern is non specific and non obstructive. There is mild bowel wall thickening involving proximal small bowel loops and there are multiple distended but nondilated fluid-filled mi d to distal small bowel loops and there is liquid feces scattered throughout the colon. These finding s are nonspecific but are concerning for possible enteritis and/or diarrheal disease or other inflamm atory bowel process. Appendix: The appendix is normal. Free air: There is no evidence of free air. Free fluid: There is no evidence of free fluid. Vasculature: The aorta is normal in caliber and contour. The inferior vena cava is grossly unremarkab le. Lymphadenopathy: No pathologic lymphadenopathy is identified. Bladder: The bladder is well distended and smooth in contour. Reproductive: The uterus is grossly within normal limits. An intrauterine device is present in grossl y satisfactory position. Bones: No acute osseous abnormalities are identified. Soft tissues: No acute soft tissue abnormalities are identified. There is a small fat-containing vent ral umbilical hernia. IMPRESSION: 1. There is mild bowel wall thickening involving proximal small bowel loops and there are multiple distended but nondilated fluid-filled mid to distal small bowel loops and liquid feces s cattered throughout the colon. These findings are nonspecific but are concerning for possible enterit is and/or diarrheal disease or other inflammatory bowel process. 2. Small fat-containing ventral umbilical hernia. 3. Status post cholecystectomy. 4. Intrauterine device present in grossly satisfactory position. Electronically signed by: Vanessa Acosta DO 11/03/2021 1:41 AM CDT Due to temporary technical issues with the PACS/Fluency reporting system, reports are being signed by the in house radiologists without review as a courtesy to insure prompt reporting. The interpreting radiologist is fully responsible for the content of the report.
[2021-11-03 17:01] LABS: Absolute Lymphocytes (CBC) 0.3 K/uL (0.7-4.9); Lymphocytes % 5.9 % (15.3-44.8); MPV 9.8 fL (7.6-11.3); RBC Red Blood Cell Count 4.03 M/uL (3.86-4.86)
[2021-11-03 17:41] LABS: Ferritin 171.2 ng/mL (8-388)
[2021-11-03] MEDS: ACETAMINOPHEN 500 MG TAB PO PRN (18:35)
[2021-11-03 19:24] LABS: Urine Appearance CLEAR (Clear); Urine Bilirubin NEGATIVE (Negative); Urine Blood NEGATIVE (Negative); Urine Color YELLOW (Yellow); Urine Glucose NEGATIVE (Negative); Urine Protein NEGATIVE (Negative)
[2021-11-03 19:36] LABS: Urine Microscopic Reflex NO UMIC
[2021-11-03] MEDS ORDERED: FENTANYL CITR 100 MCG/2 ML IV ONE (19:39)
--- NOTE | 2021-11-03 20:16 | RAD REPORT ---
EXAM DESCRIPTION: RAD - Chest Single View - 11/03/2021 8:06 pm CLINICAL HISTORY: evl pulm edema, s/p multi bolus COMPARISON: Chest Pa And Lat (2 Views) dated 11/02/2019; CHEST SINGLE VIEW dated 05/02/2010; CHEST PA AND LAT 2 VIEW dated 04/28/2006 FINDINGS: Lines: None. Lungs: No evidence of edema or pneumonia. Pleural: No significant pleural effusions or pneumothorax. Cardiac: The heart size is within normal limits. Bones: No acute fractures. Other: IMPRESSION: No acute cardiopulmonary disease.
--- NOTE | 2021-11-03 22:48 | CON ---
Date of Consultation: 11/03/2021 Reason For Consultation: Hematemesis with right upper quadrant pain, chronic nausea, vomiting, diarrhea, and hypotension. History Of Present Illness: The patient is a 31-year-old white female with history of chronic diarrhea, nausea, vomiting since laparoscopic cholecystectomy in December [address] Frank Han. The patient's sister and mother also have low blood pressure. The patient is noted to have low blood pressure since admission mainly between 80 and 100 in systolic range. She has had 4 L of IV fluid and currently, her blood pressure is 89/57. The patient has not had any more hematemesis since admission. She was admitted in ICU with close monitoring due to hypotension issue. She has not seen any melena nor hematochezia. No syncope or presyncope, but she does have low blood pressure. Her BUN and creatinine on admission were normal with a BUN of 7, creatinine of 0.72, bicarb 27. Hemoglobin on admission was 15.4, now hemoglobin is down to 12.0. Repeat hemoglobin this afternoon is 12.0 as well with ongoing IV fluids. The patient is resuscitated. Currently sitting in bed, in no acute distress. No further hematemesis. Past Medical History: She has no significant past medical history except chronic diarrhea and nausea and vomiting since laparoscopic cholecystectomy in December 2018. Medications: None. Allergies: NONE. Social History: She is , 2 children. She does not smoke cigarettes, but she does vape. No alcohol, quit 2 months ago because of it upsetting her stomach. The patient has postprandial diarrhea, she reports. Family History: Father is alive and well with hyperlipidemia. Mother is alive and well. No complaints. Maternal grandmother of breast cancer at the age of 35. Review of Systems: The patient has nausea, vomiting, hematemesis, right upper quadrant pain, chronic nausea, vomiting off and on since December 2018 after laparoscopic cholecystectomy and chronic diarrhea every day postprandial since laparoscopic cholecystectomy in December 2018. The patient also notes that yesterday the nausea, vomiting, and retching began at 5 a.m. and hematemesis began at 7 p.m. Physical Examination: General: The patient is a well-nourished, well-developed female, in no acute distress, sitting up, eating her clear liquid diet. Vital Signs: She is 5 feet 10 inches, 155 pounds, BMI of 22.2 kg/sq m. Temperature 99.8 degrees Fahrenheit, pulse 81, respirations 17, blood pressure 87/56, repeat now in ICU is 89/57. O2 saturation is 98%-99% on room air. HEENT: Normocephalic, atraumatic. Anicteric. Pupils equal, round, and reactive to light. Extraocular movements are intact. Oropharynx is clear. Neck: Supple. No masses. Respirations: Clear to auscultation bilaterally. Cardiac: Regular rate and rhythm. No gallops heard. Abdomen: Positive bowel sounds. Soft, nontender, nondistended. No hepatosplenomegaly. Extremities: No clubbing, cyanosis, or edema. 2+ pulses. Neuro: Alert and oriented x3. Grossly nonfocal. 5/5 motor. Sensation intact to light touch. Laboratory Data: The patient has a white count of 4.8 at 4 o'clock today; hemoglobin 12.0, which was repeated this morning at 7 a.m. and the day before it was 16.4; hematocrit of 35; MCV of 87; platelet count of 162, on admissions it was 207; polys of 92%; lymphocytes 6%; monocytes 2%. On admission, the patient had polys of 90%. The patient had a PT of 16.6, INR of 1.5, PTT of 39.7. Sodium 142, potassium 3.7, chloride 113, bicarb 23, BUN 6, creatinine of 0.6, glucose 101, lactic acid 1.1, calcium 7.6, total bilirubin 1.3, AST of 9, ALT of 17, alk phos 46, total protein 5.3, albumin 3.0, lipase 111. Procalcitonin slightly elevated at 0.47. UA is negative for test, urine specific gravity 1.030. Prolactin level is pending. Celiac panel pending. COVID testing was negative as well as influenza A and B testing was negative. CT abdomen and pelvis revealed mild bowel wall thickening involving the proximal small bowel loops. Multiple distended but nondilated fluid filled distal small bowel loops, liquid feces scattered throughout colon, nonspecific, small fat containing ventral abdominal hernia, cholecystectomy changes, and IUD device in place. Impression: 1. Hematemesis, nausea, vomiting, retching at 5 p.m. yesterday began and hematemesis began at [address] scan reveals enteritis with some mild inflammation of the small bowel with mild dilatation of small bowel loops. Needs to continue IV fluids, IV antibiotics and check stool studies, if not done. 2. Right upper quadrant pain and history of postprandial diarrhea since December 2018. Investigate with EGD. 3. Hematemesis with hypotension. Evaluation and further workup and ensure the patient is fully fluid resuscitated and the patient has no more anemia. It appears unlikely that the patient has any more anemia since hemoglobin is stable since 4 o'clock this morning to 4 o'clock this afternoon with hemoglobin stable at 12. On admission it was 15, may be due to some dehydration. 4. History of chronic nausea and vomiting off and on since laparoscopic cholecystectomy December 2018. Investigate with EGD. 5. Chronic diarrhea every day since December 2009 since laparoscopic cholecystectomy, also postprandial in nature. She reports July 2020 EGD in [place] showed gastritis only by record. 6. Hypotension. Blood pressure now 89/57 in ICU despite 4 L of IV fluids. Systolic blood pressure is anywhere from 70-128, mainly in the 80-100 range despite the fluid resuscitation. Of note, her mother and sister both have low blood pressure. BUN and creatinine were normal on admission, at 7 and 0.7. Hemoglobin has decreased from 15 to 12, may be from dehydration and specific gravity was at 1.030, indicative of dehydration as well so no ketones were checked. 7. Coagulopathy. PT of 16.6, INR of 1.5. Unclear why this is the case. The patient may have hemolytic disorder or underlying liver disease or vitamin K deficiency or some other disorder. Of note, her albumin is normal on admission at 4.3. AST and ALT are normal at 13 and 26 on admission, alkaline phosphatase 64, total bilirubin 1.2. We will need to further work up with CBC with smear, porphyria possibly or hepatitis A, B, C or other. Recommendations: 1. Check H and H serially and transfuse p.r.n. 2. Continue proton-pump inhibitor therapy. 3. Complete hypotension workup, if needed consult Cardiology. 4. Continue IV fluids and IV antibiotics. Considering the patient has elevated polys of anywhere from 90%-92% on differential and the white count initially was 11 and now it is 4.8 on IV antibiotics. 5. Continue clear liquid diet. N.p.o. since midnight for EGD. 6. EGD. 7. Check stool studies. 8. Check labs including CBC with smear, vitamin B12, folate, iron indices, haptoglobin, viral hepatitis panel and studies for porphyria. KATIE/LYNDA Voice ID: [id number] Report ID: [id number] [facility]
[2021-11-04] MEDS: METRONIDAZOLE 500mg IVPB 500 MG/100 ML BAG IV SCH ×3 (00:24→15:51)
[2021-11-04] MEDS: NA CHLORIDE 0.9% 1,000 ML IV SCH (00:25)
[2021-11-04] MEDS: METHYLPREDNISOLONE 40 MG INJ IV SCH ×2 (00:25→07:20)
[2021-11-04 04:52] LABS: Absolute Lymphocytes (CBC) 0.4 K/uL (0.7-4.9); Hematocrit 33.6 % (36.0-45.0); Lymphocytes % 6.5 % (15.3-44.8); MPV 9.4 fL (7.6-11.3); RBC Red Blood Cell Count 3.95 M/uL (3.86-4.86)
[2021-11-04 04:53] LABS: Protime INR 1.19
[2021-11-04 05:10] LABS: ALT/SGPT 17 U/L (12-78); AST/SGOT 9 U/L (15-37); Alkaline Phosphatase 40 U/L (45-117); BUN Blood Urea Nitrogen 5 mg/dL (7-18); Bicarbonate 24 mmol/L (21-32); Bilirubin Total 0.6 mg/dL (0.2-1.0); Glucose Level 116 mg/dL (74-106); Magnesium 1.7 mg/dL (1.8-2.4); Potassium 3.9 mmol/L (3.5-5.1); Protein, Total 5.5 g/dL (6.4-8.2); Sodium Level 140 mmol/L (136-145)
[2021-11-04] MEDS ORDERED: NA CHLORIDE 0.9% 1,000 ML IV SCH ×2 (06:11→14:00)
--- NOTE | 2021-11-04 06:11 | P.PN ---
Date of Service: 11/04/21 Subjective: no vomiting, tolerating liquids last night N.p.o. for EGD today Improving, blood pressure better No longer feeling dizzy ROS: 10 point ROS as noted above, otherwise negative Physical exam GEN: Alert, oriented, NAD HEENT: Normal conjunctiva, sclera anicteric CV: Regular rate and rhythm, mild bilateral edema in hands Pulm: Non-labored respirations on room air ABD: Soft, mild discomfort in epigastrium and RUQ on palpation Integumentary: No rashes Neuro: Normal speech, normal affect Problem List Enteritis Hypotension secondary to hypovolemia/dehydration, not sepsis Hematemesis, likely Citlalli-Harley tear, resolved Chronic diarrhea, abdominal pain N.p.o., continue IV fluids, plan for EGD this morning Patient monitored in ICU, blood pressure improved. Feeling better No flatus, no bowel movement since admission Urine output has improved Hemoglobin stable Given chronic diarrhea, will check for vitamin/iron deficiencies GI consulted, urine collection ordered for porphyria rule out Continue Protonix DC steroids VTE: SCDs Code: Full Dispo: Home, likely tomorrow pending EGD, further improvement Time Spent Managing Pts Care (In Minutes): 35
[2021-11-04] MEDS: PANTOPRAZOLE 40 MG INJ IVP SCH ×2 (07:20→20:19)
[2021-11-04] MEDS: CEFTRIAXONE 1,000 MG in NA CHLORIDE 0.9% 50 ML IVPB SCH (07:20)
[2021-11-04] MEDS ORDERED: LIDOCAINE 1% MPF 5 ML VIAL ONE (08:39)
[2021-11-04] MEDS ORDERED: propofoL 200 MG/20 ML VIAL IV ONE (08:39)
[2021-11-04] MEDS ORDERED: Ringers Lactate 0 ML IV ONE (08:43)
[2021-11-04] MEDS ORDERED: EPINEPHRINE/PF 1 MG/ML AMP ONE ×2 (08:47)
--- NOTE | 2021-11-04 09:42 | ENDO RPT ---
[address], [address] EGD PROCEDURE REPORT EXAM DATE: 11/04/2021 PATIENT NAME: Sobeida Kam MR#: [id number] BIRTHDATE: 1990 ATTENDING: David Blankenship Dr STATUS: inpatient TABLE RUNNER: Dotty Ibanez RN INDICATIONS: The patient is a 31 yr old Female here for an EGD due to hematemesis, upper G.I. bleeding, anemia, and nausea and vomiting PROCEDURE PERFORMED: EGD with biopsy MEDICATIONS: Per Anesthesia. TOPICAL ANESTHETIC: none CONSENT: The patient understands the risks and benefits of the procedure and understands that these risks include, but are not limited to: sedation, allergic reaction, infection, perforation and/or bleeding. Alternative means of evaluation and treatment include, among others: physical exam, x-rays, and/or surgical intervention. The patient elects to proceed with this endoscopic procedure. DESCRIPTION OF PROCEDURE: During intra-op preparation period all mechanical medical equipment was checked for proper function. Hand hygiene and appropriate measures for infection prevention was taken. Procedure, possible complications, and alternatives including but not limited to the possibility of bleeding, perforation, tear, infection, sepsis, need for surgery, need for blood transfusion, and anesthesia related complications were explained to the patient. After the risks, benefits and alternatives of the procedure were thoroughly explained, Informed consent was verified, confirmed and timeout was successfully executed by the treatment team. The patient was placed in the left lateral position. The patient was anesthetized with topical anesthesia. Through the anesthetized oropharyngeal area, the scope was passed without any difficulty. The EG-[id number] ([id number]) endoscope was introduced through the mouth and advanced to the third portion of the duodenum. Retroflexed views revealed a small hiatal hernia. The gastroscope was then slowly withdrawn and removed. LA class A esophagitis was found in the lower esophagus. A small hiatal hernia was found. Mild gastritis was found in the antrum. Multiple biopsies were obtained and sent to pathology. ADVERSE EVENTS: There were no complications. IMPRESSIONS: 1. LA class A esophagitis in the lower esophagus 2. Small hiatal hernia 3. Mild gastritis in the antrum, s/p biopsies RECOMMENDATIONS: 1. await biopsy results 2. acid suppression therapy REPEAT EXAM: David Blankenship Dr eSigned: David Blankenship Dr 11/04/2021 9:42 AM cc: CPT CODES: ICD9 CODES: PATIENT NAME: Sobeida Kam MR#: [id number]
[2021-11-04] MEDS: ACETAMINOPHEN 500 MG TAB PO PRN (15:51)
[2021-11-04] MEDS: TRAMADOL HCL 50 MG TAB PO PRN (17:42)
[2021-11-04] MEDS: ONDANSETRON 4 MG/2 ML VIAL IV PRN (18:39)
[2021-11-04] MEDS ORDERED: DIPHENHYDRAMINE 25 MG TAB/CAP PO ONE (20:07)
[2021-11-04] MEDS ORDERED: DIPHENHYDRAMINE 25 MG TAB/CAP ONE (20:13)
[2021-11-05] MEDS: METRONIDAZOLE 500mg IVPB 500 MG/100 ML BAG IV SCH ×2 (00:52→07:58)
[2021-11-05 05:00] LABS: Absolute Lymphocytes (CBC) 1.6 K/uL (0.7-4.9); Lymphocytes % 31.9 % (15.3-44.8); MPV 9.7 fL (7.6-11.3); RBC Red Blood Cell Count 3.69 M/uL (3.86-4.86)
[2021-11-05 05:13] LABS: ALT/SGPT 15 U/L (12-78); AST/SGOT 6 U/L (15-37); Albumin 2.8 g/dL (3.4-5.0); Alkaline Phosphatase 33 U/L (45-117); BUN Blood Urea Nitrogen 6 mg/dL (7-18); Bicarbonate 28 mmol/L (21-32); Bilirubin Total 0.2 mg/dL (0.2-1.0); C-Reactive Protein 9.89 mg/L (<3.00); Glucose Level 97 mg/dL (74-106); Magnesium 1.9 mg/dL (1.8-2.4); Potassium 3.4 mmol/L (3.5-5.1); Sodium Level 143 mmol/L (136-145)
[2021-11-05] MEDS: PANTOPRAZOLE 40 MG INJ IVP SCH ×2 (07:57→21:47)
[2021-11-05] MEDS: CEFTRIAXONE 1,000 MG in NA CHLORIDE 0.9% 50 ML IVPB SCH (07:58)
[2021-11-05] MEDS ORDERED: POTASSIUM CL SA 10 MEQ TAB PO ONE (08:00)
[2021-11-05] MEDS ORDERED: DIPHENHYDRAMINE 50 MG/ML VIAL IV ONE (13:00)
--- NOTE | 2021-11-05 14:45 | P.PN ---
Date of Service: 11/05/21 Subjective: improving last night developed redness to arms/stomach/chest/neck, and itching abd pain ok, no BM, +flatus no dizziness ROS: 10 point ROS as noted above, otherwise negative Physical exam GEN: Alert, oriented, NAD HEENT: Normal conjunctiva, sclera anicteric CV: Regular rate and rhythm, no edema Pulm: Non-labored respirations on room air ABD: Soft, mild discomfort in epigastrium and RUQ on palpation Integumentary: blanching mild erythema in throughout body Neuro: Normal speech, normal affect Problem List Enteritis Hypotension secondary to hypovolemia/dehydration, not sepsis Hematemesis, resolved Chronic diarrhea, abdominal pain B12 deficiency anemia of chronic disease / iron deficiency advanced diet, tolerating well, +flatus, no BM vitals improved, can downgrade from ICU patient with erythema throughout body since 11/05, improved partially with benadryl. Began ~6pm 11/04, most likely due to flagyl, similar appearance to lesser degree in ED. and now occurring again once she's been off steroids (dc'd 11/04) change antibiotics to zosyn. will monitor overnight. workup reveals anemia of chronic disease, iron deficiency, B12 deficiency as well. Would likely benefit from supplementation on discharge GI consulted, urine collection ordered for porphyria rule out Continue Protonix VTE: SCDs Code: Full Dispo: Home, tomorrow monitor allergy / vitals overnight Time Spent Managing Pts Care (In Minutes): 35
[2021-11-05] MEDS: PIPER TAZO 3.375 GM in NA CHLORIDE 0.9% 100 ML IV SCH (17:46)
[2021-11-06] MEDS: PIPER TAZO 3.375 GM in NA CHLORIDE 0.9% 100 ML IV SCH ×3 (00:43→16:17)
[2021-11-06 04:53] LABS: Hematocrit 32.3 % (36.0-45.0); Lymphocytes % 40.2 % (15.3-44.8); MPV 9.5 fL (7.6-11.3); RBC Red Blood Cell Count 3.74 M/uL (3.86-4.86)
[2021-11-06 05:19] LABS: Albumin 2.8 g/dL (3.4-5.0); Bilirubin Total 0.3 mg/dL (0.2-1.0); Magnesium 1.9 mg/dL (1.8-2.4); Potassium 3.5 mmol/L (3.5-5.1); Protein, Total 5.1 g/dL (6.4-8.2)
[2021-11-06] MEDS: POTASSIUM CL SA 10 MEQ TAB PO ONE ×2 (05:54→08:47)
[2021-11-06 06:36] VITALS: BMI 21.8
[2021-11-06] MEDS: PANTOPRAZOLE 40 MG INJ IVP SCH ×2 (08:47→20:43)
--- NOTE | 2021-11-06 14:14 | RAD REPORT ---
EXAM DESCRIPTION: RAD - Abdomen 1 View (KUB) - 11/06/2021 1:58 pm CLINICAL HISTORY: Bloating COMPARISON: Abdomen Pelvis W Contrast dated 11/03/2021 FINDINGS: Bowel gas pattern is non-specific. No obstruction, free air or pneumatosis. Moderate stoo l volume is seen in the hepatic and splenic flexure regions. Cholecystectomy clips are seen in the ri ght upper quadrant. IUD is in place. No significant bony findings IMPRESSION: Negative KUB examination for acute or suspicious finding.
--- NOTE | 2021-11-06 15:57 | P.PN ---
Subjective Date of Service: 11/06/21 Chief Complaint: Enteritis, hypotension Complaining of bloating in abdomen. She feels this is due to constipation. She did not eat much solid diet today. She states she has been passing flatus. No BM for 3 days. No fever. Physical Examination - Vital Signs Temperature: 97.9 F Blood Pressure: 114/73 Pulse: 70 Respirations: 18 Pulse Ox (%): 99 Assessment And Plan - Plan Physical exam GEN: Alert, oriented, NAD HEENT: Normal conjunctiva, sclera anicteric CV: Regular rate and rhythm, no edema Pulm: Non-labored respirations on room air ABD: Soft, nontender to palpation. Integumentary: No rashes. Neuro: Normal speech, normal affect Problem List Enteritis Hypotension secondary to hypovolemia/dehydration, not sepsis Hematemesis, resolved Chronic diarrhea, abdominal pain B12 deficiency anemia of chronic disease / iron deficiency Plan: Soft diet. KUB unremarkable. Will treat constipation with mild laxative-Milk of magnesia and advance if no result. Blood pressure significantly improved today. Continue zosyn. Workup reveals anemia of chronic disease, iron deficiency, B12 deficiency as well. Would likely benefit from supplementation on discharge GI-dr. Blankenship input appreciated. Multiple test ordered-to rule out celiac disease, and porphyria. I suspect patient chronic abdominal pain secondary to bile acid dyspepsia/reflux. Continue Protonix Check cortisol level and TSH to further evaluate intermittent hypotension. VTE: SCDs Code: Full
[2021-11-06] MEDS: MAGNESIUM HYDROXIDE 8% 30 ML PO SCH ×2 (16:16→20:56)
--- NOTE | 2021-11-06 17:55 | P.PN ---
Subjective Date of Service: 11/06/21 Chief Complaint: Hematemesis, N/V, abnormal CT, enteritis, hypotension Subjective: Improving (No further hematemesis, N/V. She complains of constipation now and some LLQ tenderness.) Review of Systems 10-point ROS is otherwise unremarkable Gastrointestinal: Abdominal Pain (LLQ tenderness), Constipation Physical Examination - Vital Signs Temperature: 97.8 F Blood Pressure: 95/57 Pulse: 65 Respirations: 18 Pulse Ox (%): 100 - Physical Exam General: Alert, In no apparent distress, Oriented x3, Cooperative HEENT: Atraumatic, Normocephalic, PERRLA, EOMI Neck: Supple Respiratory: Normal air movement Cardiovascular: Normal pulses, Regular rate/rhythm Gastrointestinal: No rebound, No guarding, Tenderness (LLQ) Neurological: Normal speech, Normal strength at 5/5 x4 extr Assessment And Plan - Current Problems (Diagnosis) (1) Hematemesis Current Visit: Yes Status: Acute Comment: secondary to enteritis with N/V and probable MW tear from wretching that has resolved with therapy for enteritis. (2) Nausea & vomiting Current Visit: Yes Status: Acute (3) Enteritis Current Visit: Yes Status: Acute (4) Abnormal CT of the abdomen Current Visit: Yes Status: Acute (5) Hypotension Current Visit: Yes Status: Acute (6) Coagulopathy Current Visit: Yes Status: Acute Comment: resolved with enteritis / probable sepsis therapy - Plan REC: 1) Miralax therapy in addition to MOM 2) outpatient cardiology evaluation for low blood pressure in patient, mother, and sister 3) GI clinic f/u in 2-3 weeks 4) okay to discharge
[2021-11-06] MEDS: ONDANSETRON 4 MG/2 ML VIAL IV PRN (18:58)
[2021-11-06] MEDS ORDERED: POLYETHYL GLY 3350 17 GM/DOSE PO PRN (20:00)
[2021-11-06] MEDS: TRAMADOL HCL 50 MG TAB PO PRN (20:40)
[2021-11-06] MEDS ORDERED: DIPHENHYDRAMINE 50 MG/ML VIAL IV ONE (22:36)
[2021-11-07] MEDS: PIPER TAZO 3.375 GM in NA CHLORIDE 0.9% 100 ML IV SCH ×2 (00:41→08:54)
[2021-11-07] MEDS ORDERED: NA CHLORIDE 0.9% 1,000 ML IV ONE (04:31)
[2021-11-07 04:41] LABS: Absolute Lymphocytes (CBC) 2.2 K/uL (0.7-4.9); Hematocrit 33.6 % (36.0-45.0); Lymphocytes % 36.1 % (15.3-44.8); MPV 9.2 fL (7.6-11.3); RBC Red Blood Cell Count 3.94 M/uL (3.86-4.86)
[2021-11-07 04:58] LABS: ALT/SGPT 22 U/L (12-78); AST/SGOT 11 U/L (15-37); Albumin 3.1 g/dL (3.4-5.0); Alkaline Phosphatase 35 U/L (45-117); BUN Blood Urea Nitrogen 5 mg/dL (7-18); Bicarbonate 29 mmol/L (21-32); Bilirubin Total 0.6 mg/dL (0.2-1.0); Glucose Level 90 mg/dL (74-106); Potassium 3.4 mmol/L (3.5-5.1); Protein, Total 5.4 g/dL (6.4-8.2); Sodium Level 142 mmol/L (136-145)
[2021-11-07] MEDS ORDERED: POTASSIUM CL SA 10 MEQ TAB PO ONE (08:00)
[2021-11-07] MEDS: MAGNESIUM HYDROXIDE 8% 30 ML PO SCH ×2 (08:52→20:33)
[2021-11-07] MEDS: PANTOPRAZOLE 40 MG INJ IVP SCH ×2 (08:54→20:32)
[2021-11-07] MEDS: ONDANSETRON 4 MG/2 ML VIAL IV PRN (13:12)
[2021-11-07] MEDS: NA CHLORIDE 0.9% 1,000 ML IV SCH (13:15)
[2021-11-07 13:21] LABS: HBsAG Nonreactive (Nonreactive)
[2021-11-07] MEDS ORDERED: metroNIDAZOLE 500 MG TABLET PO SCH (14:00)
--- NOTE | 2021-11-07 14:38 | P.DS ---
Admission Date: 11/03/21 Discharge Date: 11/08/21 Disposition: ROUTINE DISCHARGE Discharge Condition: FAIR Reason for Admission: Hematemesis, N/V, abnormal CT, enteritis, hypotension Brief History of Present Illness: 31-year-old female with no significant past medical history presents emergency department for nausea, vomiting, diarrhea and abdominal pain. Patient reports that she has chronic diarrhea after her cholecystectomy but began having abdominal pain earlier this week, started vomiting. Patient reports vomiting more than 10 times, saw a small amount of blood streak with a third episode. In the emergency department her labs were significant for mild leukocytosis and hemoconcentration. Her CT showed enteritis pattern. While patient was in the emergency department she did have hypotension with blood pressures in the 80s over 60s. Patient admitted for further management. Hospital Course: Diagnosis Enteritis Hypotension secondary to hypovolemia/dehydration, not sepsis Hematemesis, resolved Chronic diarrhea, abdominal pain B12 deficiency anemia of chronic disease / iron deficiency Plan: Patient admitted to the ICU due to recorded low blood pressure. She was aggressively resuscitated with IV normal saline. Her blood pressure fluctuated, at times with systolic in the 80s and 90s. Patient seen in consultation by GI for intractable nausea and vomiting and hematemesis. EGD done showed esophagitis and gastritis. Patient was treated with IV Protonix twice daily. Serum cortisol level and TSH level checked to evaluate the intermittent hypotension were normal. I suspect patient has baseline low blood pressure. She was also bradycardic with heart rate in the 50s to 60s. She has been adequately resuscitated. The intermittent low blood pressure is unlikely secondary to dehydration. Patient is prescribed midodrine as needed. Seen by cardiology. Echocardiogram done. She complained of constipation which was treat ed with milk of magnesia. She tolerated liquid and soft diet. She was treated empirically with IV Zosyn for enteritis. Patient is discharged to continue antibiotics with oral Augmentin. Other workup reveale anemia of chronic disease, iron deficiency, B12 deficiency as well. Patient prescribed multivitamins on discharge Multiple test ordered-to rule out celiac disease, and porphyria are pending. Patient will follow with Dr. Blankenship as an outpatient. Patient also discharged with Protonix and sucralfate to help control his symptoms. Vital Signs/Physical Exam: Temp Pulse Resp BP Pulse Ox 97.5 F 62 14 105/57 L 99 11/07/21 12:00 11/07/21 12:00 11/07/21 12:00 11/07/21 12:00 11/07/21 12:00 General: Alert, In no apparent distress, Oriented x3 HEENT: Mucous membr. moist/pink Neck: Supple, JVD not distended Respiratory: Clear to auscultation bilaterally, Normal air movement Cardiovascular: No edema, Regular rate/rhythm, Normal S1 S2 Gastrointestinal: Normal bowel sounds, Soft and benign, Non-distended, No tenderness Musculoskeletal: No swelling Integumentary: No rashes Neurological: Normal strength at 5/5 x4 extr Laboratory Data at Discharge: WBC 6.0 K/uL (4.3-10.9) D 11/07/21 04:23 Hgb 11.9 g/dL (12.0-15.0) L 11/07/21 04:23 Hct 33.6 % (36.0-45.0) L 11/07/21 04:23 Plt Count 191 K/uL (152-406) D 11/07/21 04:23 PT Cancelled 11/04/21 07:40 INR Cancelled 11/04/21 07:40 APTT Cancelled 11/04/21 07:40 Sodium 142 mmol/L (136-145) 11/07/21 04:23 Potassium 3.4 mmol/L (3.5-5.1) L 11/07/21 04:23 BUN 5 mg/dL (7-18) L 11/07/21 04:23 Creatinine 0.74 mg/dL (0.55-1.3) 11/07/21 04:23 Glucose 90 mg/dL (74-106) 11/07/21 04:23 Magnesium 1.9 mg/dL (1.8-2.4) 11/06/21 04:36 Total Bilirubin 0.6 mg/dL (0.2-1.0) 11/07/21 04:23 AST 11 U/L (15-37) L 11/07/21 04:23 ALT 22 U/L (12-78) 11/07/21 04:23 Alkaline Phosphatase 35 U/L (45-117) L 11/07/21 04:23 Lipase 111 U/L (73-393) 11/02/21 22:44 Home Medications: Amox/Clavulanate [Augmentin 875-125 Tab*] 875 mg PO BID #6 tab 11/07/21 Midodrine HCl 5 mg PO TID PRN #30 tablet 11/07/21 Pantoprazole [Protonix Tab] 40 mg PO BID #60 tab 11/07/21 Polyethyl Gly 3350 [Glycolax*] 17 gm PO DAILY PRN #30 udbot 11/07/21 Sucralfate [Carafate*] 10 ml PO ACHS #45 ucup 11/07/21 traMADol HCL [Ultram*] 25 mg PO Q6HP PRN #20 tab 11/07/21 New Medications: traMADol HCL [Ultram*] 25 mg PO Q6HP PRN #20 tab PRN Reason: Pain Scale 5-7 (Moderate) Amox/Clavulanate [Augmentin 875-125 Tab*] 875 mg PO BID #6 tab Sucralfate [Carafate*] 10 ml PO ACHS #45 ucup Polyethyl Gly 3350 [Glycolax*] 17 gm PO DAILY PRN #30 udbot PRN Reason: Constipation Midodrine HCl 5 mg PO TID PRN #30 tablet PRN Reason: low SBP<90 Pantoprazole [Protonix Tab] 40 mg PO BID #60 tab Followup: NONE,NONE [Primary Care Provider] - David Blankenship MD [ASSOCIATE-ACTIVE - CAN ADMIT] - 1 Week Main Rivera MD [ACTIVE - CAN ADMIT] - 1 Week Time spent managing pt's care (in minutes): 42
--- NOTE | 2021-11-07 16:32 | P.PN ---
Subjective Date of Service: 11/07/21 Chief Complaint: Hematemesis, N/V, abnormal CT, enteritis, hypotension Patient with intermittent hypotension. She had a bowel movement but still complaining of abdominal pain. She vomited before lunch today. No fever. Physical Examination - Vital Signs Temperature: 97.5 F Blood Pressure: 105/57 Pulse: 62 Respirations: 14 Pulse Ox (%): 99 Assessment And Plan - Plan Physical exam GEN: Alert, oriented, NAD HEENT: Normal conjunctiva, sclera anicteric CV: Regular rate and rhythm, no edema Pulm: Non-labored respirations on room air ABD: Soft, nontender to palpation. Integumentary: No rashes. Neuro: Normal speech, normal affect Problem List Enteritis Hypotension secondary to hypovolemia/dehydration, not sepsis Hematemesis, resolved Chronic diarrhea, abdominal pain B12 deficiency anemia of chronic disease / iron deficiency Plan: Diet as tolerated. KUB unremarkable. Constipation prophylaxis Blood pressure appears to fluctuate. Bradycardia also noted. Will obtain ec hocardiogram. Cortisol level and TSH within normal limit. Doubt adrenal insufficiency. Discontinue antibiotics. Workup reveals anemia of chronic disease, iron deficiency, B12 deficiency as well. Start B12 supplementation. GI-dr. Blankenship input appreciated. Multiple test ordered-to rule out celiac disease, and porphyria. I suspect patient chronic abdominal pain secondary to bile acid dyspepsia/re flux. Continue Protonix VTE: SCDs Code: Full
[2021-11-07] MEDS: MIDODRINE HCL 5 MG TABLET PO PRN (18:38)
[2021-11-07] MEDS: SUCRALFATE 1GM/10ML UCUP PO SCH ×2 (18:38→20:32)
[2021-11-07] MEDS ORDERED: AMOX/K CLAV 875 MG TAB PO SCH (21:00)
[2021-11-07] MEDS ORDERED: CIPROFLOXACIN HCL 500 MG TAB PO SCH (21:00)
[2021-11-08] MEDS: NA CHLORIDE 0.9% 1,000 ML IV SCH (00:13)
[2021-11-08] MEDS: MIDODRINE HCL 5 MG TABLET PO PRN ×2 (04:14→12:37)
[2021-11-08] MEDS: SUCRALFATE 1GM/10ML UCUP PO SCH ×2 (08:50→12:00)
[2021-11-08] MEDS ORDERED: CYANOCOBALAMIN 1,000 MCG TAB PO SCH (09:00)
[2021-11-08] MEDS: MAGNESIUM HYDROXIDE 8% 30 ML PO SCH (09:00)
[2021-11-08] MEDS: PANTOPRAZOLE 40 MG INJ IVP SCH (10:00)
[2021-11-08 12:00] LABS: Potassium 3.9 mmol/L (3.5-5.1)
[2021-11-08] MEDS ORDERED: POTASSIUM CL SA 10 MEQ TAB PO ONE (12:10)
[2021-11-08 12:35] VITALS: TEMP 98.1
--- NOTE | 2021-11-08 14:39 | CON ---
Date of Consultation: 11/08/2021 History Of Present Illness: Ms. Kam was admitted on 11/05/[address] Weems for enteritis. He a sked me to see her today on 11/08/2021 because of her persistent bradycardia and borderline hypotensi on. Yesterday when he asked me to do so, I recommended midodrine, but he has already started that. I recommended a 2D echocardiogram, which remains pending. The patient is completely asymptomatic wit h her bradycardia, with her hypotension. She gets a little dizzy. She had came in with nausea, vomi ting, hematemesis, and enteritis. Colonoscopy is planned by Dr. Blankenship in the near future. She is a symptomatic now. Blood pressure is normal. Heart rate is normal. I did not examine Ms. Kam. We discussed her case together. Discussed the case with Dr. Weems. I think her hypotension is second nathan to her nausea, vomiting, hematemesis and enteritis and dehydration. I think she needs to be hydr ated vigorously, increase her salt intake, continue midodrine as needed. I think her heart rate is p robably chronic, may be secondary to her being young and physically active. I still think an echoca rdiogram is indicated. If her echocardiogram is normal, she can go home. JOSUE/LYNDA Voice ID: [id number] Report ID: [id number]
[2021-11-08 14:49] VITALS: O2SAT 97
[2021-11-08 17:31] VITALS: BP 102/59
[2021-11-09 20:36] LABS: Immunoglobulin A 40 mg/dL (47-310); Tissue Transglutaminase IgA Ab <1.0 U/mL (<15.0)
[2021-11-10 13:22] LABS: Urine Blood Negative (Negative); Urine Glucose Negative (Negative); Urine Protein Negative (Negative); Urine Specific Gravity >=1.030 (1.005-1.030)
--- NOTE | 2021-11-12 07:07 | ECHO ---
HEIGHT: 5 ft 10 in WEIGHT: 152 lb 3.2 oz DATE OF STUDY: 11/09/[address]: niya andrade 2-DIMENSIONAL: YES M.MODE: YES DOPPLER: YES COLOR FLOW: YES TDS: PORTABLE: DEFINITY: BUBBLE STUDY: DIAGNOSIS: PER DR. ANDRADE CARDIAC HISTORY: CATHERIZATION: NO SURGERY: NO PROSTHETIC VALVE: NO PACEMAKER: NO MEASUREMENTS (cm) DIASTOLIC (NORMALS) SYSTOLIC (NORMALS) IVSd 0.7 (0.6-1.2) LA Diam 3.0 (1.9-4.0) LVEF 63% LVIDd 4.0 (3.5-5.7) LVIDs 2.7 (2.0-3.5) %FS 33% LVPWd 0.9 (0.6-1.2) Ao Diam 2.0 (2.0-3.7) 2 DIMENSIONAL ASSESSMENT: RIGHT ATRIUM: NORMAL LEFT ATRIUM: NORMAL RIGHT VENTRICLE: NORMAL LEFT VENTRICLE: NORMAL TRICUSPID VALVE: NORMAL MITRAL VALVE: NORMAL PULMONIC VALVE: NORMAL AORTIC VALVE: NORMAL PERICARDIAL EFFUSION: NONE AORTIC ROOT: NORMAL LEFT VENTRICULAR WALL MOTION: NORMAL DOPPLER/COLOR FLOW: MILD TRICUSPID REGURGITATION. TRACE MITRAL REGURGITATION. COMMENTS: NORMAL LEFT VENTRICULAR EJECTION FRACTION 60-65%. NORMAL WALL MOTION. TECHNOLOGIST: MONTY CHRISTOPHER
== END 2021-11-08 17:02 | disposition home or self-care (01) | DRG 391 ==
LOC: ER 22:21 → ERHOLD 11-03 02:44 → 2ND 11-03 11:29 → ERHOLD 11-03 11:55 → 3RD-ICU 11-03 15:47 → 2ND 11-06 10:00
PROVIDERS: ADMIT Hospitalist; ATTEND Hospitalist
PROC: 0DB68ZX Excision of Stomach, Via Natural or Artificial Opening Endoscopic, Diagnostic (ICD-10-PCS; principal; 2021-11-04 09:00)
DX: K52.9 Noninfective gastroenteritis and colitis, unspecified (principal); K22.6 Gastro-esophageal laceration-hemorrhage syndrome; K92.0 Hematemesis; D68.9 Coagulation defect, unspecified; I95.9 Hypotension, unspecified; E86.1 Hypovolemia; E86.0 Dehydration; E53.8 Deficiency of other specified B group vitamins; D50.9 Iron deficiency anemia, unspecified; R00.1 Bradycardia, unspecified; K59.00 Constipation, unspecified; L27.1 Localized skin eruption due to drugs and medicaments taken internally; T37.3X5A Adverse effect of other antiprotozoal drugs, initial encounter; Y92.230 Patient room in hospital as the place of occurrence of the external cause; K20.90 Esophagitis, unspecified without bleeding; K44.9 Diaphragmatic hernia without obstruction or gangrene; F17.290 Nicotine dependence, other tobacco product, uncomplicated; Z90.49 Acquired absence of other specified parts of digestive tract; Z20.822 Contact with and (suspected) exposure to COVID-19
CPT/HCPCS: 0240U; 36415; 71045; 74018; 74177; 80048; 80053; 80074; 81003; 81025; 82533; 82607; 82728; 82784; 83010; 83516; 83540; 83605; 83615; 83631; 83690; 83735; 84120; 84145; 84443; 84466; 84484; 85025; 85044; 85610; 85652; 85730; 86140; 88305; 88312; 93005; 93306; 96361; 96365; 96366; 96367; 96375; 99285; C9113; J0171; J1200; J2405; J2543; J2704; J2920; J3010; J3490; J7030; J7040; J7050; J7120; Q9967

== ENCOUNTER 2022-08-31 11:50 | Emergency (ER) | payer OTHER, SELFPAY ==
--- OUTSIDE RECORDS SUMMARY | 2022-08-31 11:53 | XMS REPORT | Clinical Summary ---
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 Obstetrics History Last Filed Vital Signs Not on file Plan of Treatment Health Maintenance Due Date Last Done Comments COVID-19 Vaccination (#1) 1990 Results Not on fileafter 08/31/2021 Insurance Payer Benefit Plan / Subscriber ID Effective Dates Phone Addre ss Type Group [employer] POS [id number] 2019-Present [id number] [place] [address] 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
--- OUTSIDE RECORDS SUMMARY | 2022-08-31 11:55 | XMS REPORT | Continuity of Care Document ---
:1990 Author Organization [facility] t Address [address] [place] [address] Care Team Providers Name Role Phone CEDRIC KAMINSKI Primary Care Physician Unavailab GEORGE Min Attending Clinician Unavailable Ladonna Child Attending Clinician LADONNA MARIN Attending Clinician Unavailable Theresa Cardona Attending Clinician Franny Arroyo Attending Clinician [phone] FRANNY LIMON Attending Clinician Unavailable Faith Escamilla MD Attending Clinician [phone] George Reveles MD Attending Clinician Only, Adc Test Attending Clinician Unavailable Kedar Nicole MD Attending Clinician Andrew Spicer MD Attending Clinician Doctor Unassigned, [place] Attending Clinician Unavailable Marquita Swift Attending Clinician Suly Fajardo Attending Clinician GEORGE REVELES Admitting Clinician Unavailable George Reveles MD Admitting Clinician Payers Payer Name Policy Type Policy Number Effective Date Expiration Date Abhilash REINOSO II [id number] 2020 00:00:00 Problems Condition Condition Condition Status Onset Resolution Last Treating Co mments Source Name Details Category Date Date Treatment Clinician Date Nausea and Nausea and Disease Active Overview : Univers vomiting, vomiting, 08 Formattin i ty of intractabi intractabi 00:00: g of this [place] lity of lity of 00 note Medical vomiting vomiting might be Bran ch not not different specified, specified, from the unspecifie unspecifie original. d vomiting d vomiting Added type type automatic ally from request for surgery [id number] Abdominal Abdominal Disease Active Overview: Univers pain, pain, 08 Formattin ity of epigastric epigastric 00:00: g of this 00 note Medical might be Branch different from the original. Added automatic ally from request for surgery [id number] Mammograph Mammograph Disease Active U nivers ic mass of ic mass of 9-30 it y of right right 00:00: [place] breast breast 00 MD [facility] 39 weeks 39 weeks Disease Active Unive rs gestation gestation 8-04 ity of of of 00:00: [place] 00 [facility] Rh Rh Disease Active Univers negative negative 8-04 ity of status status 00:00: [place] during during 00 Medical Bran ch in third in third trimester, trimester, antepartum antepartum Group B Group B Disease Active Univers streptococ streptococ 8-04 it y of [facility] nikki 00:00: [place] infection infection 00 [facility] during during Branch Disease Active Uni vers 3-03 ity of 00:00: [place] 00 Medical Branch 15 weeks 15 weeks Disease Active Unive rs gestation gestation 2-15 ity of of of 00:00: [place] 00 [facility] Branch Supervisio Supervisio Disease Active U nora n of high n of high 2-15 ity of risk risk 00:00: [place] 00 [facility] in second in second Bran ch trimester trimester Nausea and Nausea and Disease Active 2015- U nivers vomiting vomiting 2-15 ity of during during 00:00: [place] 00 [facility] prior to prior to Branch 22 weeks 22 weeks gestation gestation Dizziness Dizziness Disease Active Uni vers 2-15 ity of 00:00: [address] Headache Headache Disease Active Unive rs 2-15 ity of 00:00: [place] 00 [facility] Pain Pain Disease Active 2014-07 Univers pelvic pelvic 2-07 ity of 00:00: [address] Disease Active 2014-07 Uni vers with with 2-07 ity of inconclusi inconclus[place] Medica [place] viability viability Bran ch Overactive Overactive Problem Active C ommon bladder bladder [facility] Allergies, Adverse Reactions, Alerts Allergy Allergy Status Severity Reaction(s) Onset Inactive Treating Comm ents Source Name Type Date Date Clinician NO KNOWN Drug Active Univers ALLERGIE Class ity of S [facility] Family History Family Member Diagnosis Comments Start Date Stop Date Source Maternal aunt Other [facility] Maternal grandmother -Breast cancer [facility] Natural mother Other [facility] Paternal aunt Stomach [facility] Social History Social Habit Start Date Stop Date Quantity Comments Source History of Never Smoker [facility] Tobacco Use [facility] Sex Assigned At [facility] Exposure to Not sure [facility] SARS-CoV-2 [facility] (event) Alcohol intake 2021-02-18 2021-02-18 0 /d [facility] 00:00:00 00:00:00 [facility] Tobacco use and 2015-06-19 2015-06-19 Never used [facility] exposure 00:00:00 00:00:00 [facility] Smoking Status Start Date Stop Date Source Never Smoker [facility] Medications Ordered Filled Start Stop Current Ordering Indication Dosage Frequency Signature Comments Components Source Medication Medication Date Date Medication? Clinician (SIG) Name Name FLUOXETINE Yes Take by Univ ers HCL (PROZAC 8-01 mouth. ity of ORAL) 17:00: [address] FLUOXETINE Yes Take by Univ ers HCL (PROZAC 8-01 mouth. ity of ORAL) 12:00: [address] FLUOXETINE Yes Take by Univ ers HCL (PROZAC 1-15 mouth. ity of ORAL) 17:18: [place] [facility] FLUOXETINE Yes Take by [facility] ers HCL (PROZAC 1-15 mouth. ity of ORAL) 17:18: [place] [facility] FLUOXETINE Yes Take by Univ ers HCL (PROZAC 1-15 mouth. ity of ORAL) 17:18: [place] [facility] lactated 2020- No 1000mL at 42 Unive rs ringers IV 1-15 01-15 mL/hr, ity of infusion 14:45: 14:58 1,000 mL, Demetrius as 1,000 mL 00 :00 IV Medical Infusion, Branch ONCE, 1 dose, 08/04/20 at 0845, Routine, DSU Pre-op pantoprazol Yes [id number] 20mg Take 1 Univers e 20 mg EC 1-15 tablet by ity of tablet 00:00: mouth [place] 00 daily. Medical Branch pantoprazol Yes [id number] 20mg Take 1 Univers e 20 mg EC 1-15 tablet by ity of tablet 00:00: mouth [place] 00 daily. Medical Branch pantoprazol Yes [id number] 20mg Take 1 Univers e 20 mg EC 1-15 tablet by ity of tablet 00:00: mouth [place] 00 daily. Medical Branch pantoprazol Yes [id number] 20mg Take 1 Univers e 20 mg EC 1-15 tablet by ity of tablet 00:00: mouth [place] 00 daily. Medical Branch pantoprazol Yes [id number] 20mg Take 1 Univers e 20 mg EC 1-15 tablet by ity of tablet 00:00: mouth [place] 00 daily. Medical Branch pantoprazol 2020- No [id number] 20mg Take 1 Univers e 1-15 01-15 tablet by ity of (PROTONIX) 00:00: 00:00 mouth [place] 20 mg EC 00 :00 daily. Medical tablet Branch FLUOXETINE Yes Take by Univ ers HCL (PROZAC 1-07 mouth. ity of ORAL) 20:35: [place] [facility] FLUOXETINE Yes Take by Univ ers HCL (PROZAC 1-07 mouth. ity of ORAL) 20:35: [place] [facility] FLUOXETINE 2021-0 Yes Take by [facility] ers HCL (PROZAC 1-07 mouth. ity of ORAL) 20:35: 06 Medical Branch FLUOXETINE Yes Take by [facility] ers HCL (PROZAC 1-07 mouth. ity of ORAL) 20:35: Medical Branch cholestyram Yes [id number] 2g Take 0.5 Univers ine 4 gram 1-07 Packets by ity of powder 00:00: mouth 3 [place] (three) Medical times Branch daily with meals. cholestyram Yes [id number] 2g Take 0.5 Univers ine 4 gram 1-07 Packets by ity of powder 00:00: mouth 3 [place] (three) Medical times Branch daily with meals. cholestyram Yes [id number] 2g Take 0.5 Univers ine 4 gram 1-07 Packets by ity of powder 00:00: mouth 3 [place] (three) Medical times Branch daily with meals. cholestyram Yes [id number] 2g Take 0.5 Univers ine 4 gram 1-07 Packets by ity of powder 00:00: mouth [place] (three) Medical times Branch daily with meals. cholestyram Yes [id number] 2g Take 0.5 Univers ine 4 gram 1-07 Packets by ity of powder 00:00: mouth [place] (three) Medical times Branch daily with meals. cholestyram Yes [id number] 2g Take 0.5 Univers ine 4 gram 1-07 Packets by ity of powder 00:00: mouth [place] (three) Medical times Branch daily with meals. cholestyram Yes [id number] 2g Take 0.5 Univers ine 4 gram 1-07 Packets by ity of powder 00:00: mouth 3 [place] (three) Medical times Branch daily with meals. cholestyram Yes [id number] 2g Take 0.5 Univers ine 4 gram 1-07 Packets by ity of powder 00:00: mouth 3 [place] (three) Medical times Branch daily with meals. cholestyram Yes [id number] 2g Take 0.5 Univers ine 4 gram 1-07 Packets by ity of powder 00:00: mouth 3 [place] (three) Medical times Branch daily with meals. ondansetron 2019-07- No 4mg 4 mg, Slow Univers (ZOFRAN 0-17 05- IV Push, ity of (PF)) 19:45: 19:07 ONCE, 1 [place] injection 4 00 :00 dose, Wed Med ical mg 05/17/20 Branch at 1445, KIERSTEN morpHINE 2019-07- No 4mg 4 mg, Slow Un vance injection 4 0-17 05- IV Push, ity of mg 19:45: 19:07 ONCE, 1 [place] 00 :00 dose, [facility] Medical 05/17/20 Branch at 1445, STAT NaCl 0.9% 2019-07- No 1000mL at 999 Uni vers (NS) bolus 0- 10-28 mL/hr, ity of infusion 18:45: 19:47 1,000 mL, Demetrius as 1,000 mL 00 :00 IV Medical Infusion, Branch ONCE, 1 dose, [facility] 05/17/20 at 1345, KIERSTEN HYDROcodone 2019-07- No 1{tbl} 1 tablet, Univers -acetaminop 005-11 Oral, ity of hen (NORCO 18:15: 17:16 ONCE, 1 Demetrius as 5) 5-325 mg 00 :00 dose, Aleisha Med ical tablet 1 05/11/20 Branch tablet at 1315, KIERSTEN ketorolac 2019-07- No 30mg 30 mg, Unive rs (TORADOL) 005-11 Slow IV ity of injection 17:00: 15:58 Push, [place] 30 mg 00 :00 ONCE, 1 Medical dose, Aleisha Branch 05/11/20 at 1200, KIERSTEN
Fa culty member approving Restricted medication : EMERGENCY ROOM, phenazopyri 2019-07- No 200mg 200 mg, U nivers dine 0-11 05- Oral, ONCE ity of (PYRIDIUM) 17:00: 15:58 NOW, 1 [place] tablet 200 [place] :00 dose, [place] Medi nikki mg 05/11/20 Branch at 1200, KIERSTEN ondansetron 2019-07- No 4mg 4 mg, Slow Univers (ZOFRAN 0-11 05- IV Push, ity of (PF)) 17:00: 15:58 ONCE, 1 [place] injection 4 00 :00 dose, [place] Med ical mg 05/11/20 Branch at 1200, KIERSTEN morpHINE 2019-07 2020- No 4mg 4 mg, Slow Un vance injection 4 0-22 10-22 IV Push, ity of mg 17:00: 15:58 ONCE, 1 [place] 00 :00 dose, Aleisha Medical 05/11/20 Branch at 1200, STAT iohexol [...] IV Medical Infusion, Branch ONCE, 1 dose, [facility] 05/11/20 at 1030, KIERSTEN ondansetron 2019-07 Yes [id number] 4mg Take 1 Univers (ZOFRAN 0-22 tablet by ity of ODT) 4 mg 00:00: mouth [place] disintegrat 00 every 8 Medic al ing tablet (eight) Branch hours as needed for Nausea and Vomiting (N/V). ondansetron 2019-07 Yes [id number] 4mg Take 1 Univers (ZOFRAN 0-22 tablet by ity of ODT) 4 mg 00:00: mouth [place] disintegrat 00 every 8 Medic al ing tablet (eight) Branch hours as needed for Nausea and Vomiting (N/V). ondansetron 2019-07 Yes [id number] 4mg Take 1 Univers (ZOFRAN 0-22 tablet by ity of ODT) 4 mg 00:00: mouth [place] disintegrat 00 every 8 Medic al ing tablet (eight) Branch hours as needed for Nausea and Vomiting (N/V). ondansetron 2019-07 Yes [id number] 4mg Take 1 Univers (ZOFRAN 0-22 tablet by ity of ODT) 4 mg 00:00: mouth [place] disintegrat 00 every 8 Medic al ing tablet (eight) Branch hours as needed for Nausea and Vomiting (N/V). ondansetron 2019-07 Yes [id number] 4mg Take 1 Univers (ZOFRAN 0-22 tablet by ity of ODT) 4 mg 00:00: mouth [place] disintegrat 00 every 8 Medic al ing tablet (eight) Branch hours as needed for Nausea and Vomiting (N/V). ondansetron 2020-1 Yes [id number] 4mg Take 1 Univers (ZOFRAN 0-22 tablet by ity of ODT) 4 mg 00:00: mouth [place] disintegrat 00 every 8 Medic al ing tablet (eight) Branch hours as needed for Nausea and Vomiting (N/V). ondansetron 2020-1 Yes [id number] 4mg Take 1 Univers (ZOFRAN 0-22 tablet by ity of ODT) 4 mg 00:00: mouth [place] disintegrat 00 every 8 Medic al ing tablet (eight) Branch hours as needed for Nausea and Vomiting (N/V). ondansetron 2020-1 Yes [id number] 4mg Take 1 Univers (ZOFRAN 0-22 tablet by ity of ODT) 4 mg 00:00: mouth [place] disintegrat 00 every 8 Medic al ing tablet (eight) Branch hours as needed for Nausea and Vomiting (N/V). ondansetron 2020- Yes [id number] 4mg Take 1 Univers (ZOFRAN 0-22 tablet by ity of ODT) 4 mg 00:00: mouth [place] disintegrat 00 every 8 Medic al ing tablet (eight) Branch hours as needed for Nausea and Vomiting (N/V). ondansetron 2020-1 Yes [id number] 4mg Take 1 Univers (ZOFRAN 0-22 tablet by ity of ODT) 4 mg 00:00: mouth [place] disintegrat 00 every 8 Medic al ing tablet (eight) Branch hours as needed for Nausea and Vomiting (N/V). ondansetron 2020-1 Yes [id number] 4mg Take 1 Univers (ZOFRAN 0-22 tablet by ity of ODT) 4 mg 00:00: mouth [place] disintegrat 00 every 8 Medic al ing tablet (eight) Branch hours as needed for Nausea and Vomiting (N/V). ondansetron 2020-1 Yes [id number] 4mg Take 1 Univers (ZOFRAN 0-22 tablet by ity of ODT) 4 mg 00:00: mouth [place] disintegrat 00 every 8 Medic al ing tablet (eight) Branch hours as needed for Nausea and Vomiting (N/V). ondansetron 2019-07 Yes [id number] 4mg Take 1 Univers (ZOFRAN 0-22 tablet by ity of ODT) 4 mg 00:00: mouth [place] disintegrat 00 every 8 Medic al ing tablet (eight) Branch hours as needed for Nausea and Vomiting (N/V). ondansetron 2019-07 Yes [id number] 4mg Take 1 Univers (ZOFRAN 0-22 tablet by ity of ODT) 4 mg 00:00: mouth [place] disintegrat 00 every 8 Medic al ing tablet (eight) Branch hours as needed for Nausea and Vomiting (N/V). acetaminoph 2019-07 2020- No [id number] 1{tbl} Take 1 U nivers [...] 7 days. Indication s: acute pain acetaminoph 2019-07 2020- No [id number] 1{tbl} Take 1 U nivers en-codeine 0-22 10-30 tablet by ity of 300-30 mg 00:00: 04:59 mouth [place] tablet 00 :00 every 6 Medical (six) Branch hours as needed for Pain (scale 7-10) for up to 7 days. Indication s: acute pain phenazopyri 2019-07 2020- No [id number] 200mg Take 1 Univers dine 200 mg 0-22 10-25 tablet by it y of tablet 00:00: 04:59 mouth 3 [place] 00 :00 (three) Medical times Branch daily for 2 days. mv-min/iron Yes Take by Uni vers /folic/calc 1-28 mouth. ity of ium/vitK 15:11: [place] (WOMEN'S 52 MD ZHANG Anderso N ORAL) [facility] dicyclomine Yes [id number] 10mg Take 1 Univers (BENTYL) 10 5-23 capsule by it y of mg capsule 00:00: mouth 4 [place] 00 (four) Medical times Branch daily as needed for Abdominal pain. proMETHazin Yes [id number] 25mg Take 1 Univers e 25 mg 5-23 tablet by ity of tablet 00:00: mouth [place] 00 every 6 Medical (six) Branch hours as needed for Nausea and Vomiting (N/V). proMETHazin Yes [id number] 25mg Insert 1 Univers e 5-23 Suppositor ity of (PHENERGAN) 00:00: y [place] 25 mg 00 rectum Medical suppository every 6 Branc h (six) hours as needed for Nausea and Vomiting (N/V). dicyclomine Yes [id number] 10mg Take 1 Univers (BENTYL) 10 5-23 capsule by it y of mg capsule 00:00: mouth 4 [place] 00 (four) Medical times Branch daily as needed for Abdominal pain. proMETHazin Yes [id number] 25mg Take 1 Univers e 25 mg 5-23 tablet by ity of tablet 00:00: mouth [place] 00 every 6 Medical (six) Branch hours as needed for Nausea and Vomiting (N/V). proMETHazin Yes [id number] 25mg Insert 1 Univers e 5-23 Suppositor ity of (PHENERGAN) 00:00: y into [place] 25 mg 00 rectum Medical suppository every 6 Branc h (six) hours as needed for Nausea and Vomiting (N/V). dicyclomine Yes [id number] 10mg Take 1 Univers (BENTYL) 10 5-23 capsule by it y of mg capsule 00:00: mouth 4 [place] 00 (four) Medical times Branch daily as needed for Abdominal pain. proMETHazin Yes [id number] 25mg Take 1 Univers e 25 mg 5-23 tablet by ity of tablet 00:00: mouth [place] 00 every 6 Medical (six) Branch hours as needed for Nausea and Vomiting (N/V). proMETHazin Yes [id number] 25mg Insert 1 Univers e 5-23 Suppositor ity of (PHENERGAN) 00:00: y into [place] 25 mg 00 rectum Medical suppository every 6 Branc h (six) hours as needed for Nausea and Vomiting (N/V). dicyclomine 2019-0 Yes [id number] 10mg Take 1 Univers (BENTYL) 10 5-23 capsule by it y of mg capsule 00:00: mouth 4 [place] 00 (four) Medical times Branch daily as needed for Abdominal pain. proMETHazin 2018- Yes [id number] 25mg Take 1 Univers e 25 mg 5-23 tablet by ity of tablet 00:00: mouth [place] 00 every 6 Medical (six) Branch hours as needed for Nausea and Vomiting (N/V). proMETHazin 2018-0 Yes [id number] 25mg Insert 1 Univers e 5-23 Suppositor ity of (PHENERGAN) 00:00: y into [place] 25 mg 00 rectum Medical suppository every 6 Branc h (six) hours as needed for Nausea and Vomiting (N/V). dicyclomine 2018- Yes [id number] 10mg Take 1 Univers (BENTYL) 10 5-23 capsule by it y of mg capsule 00:00: mouth 4 [place] 00 (four) Medical times Branch daily as needed for Abdominal pain. proMETHazin 2018-0 Yes [id number] 25mg Take 1 Univers e 25 mg 5-23 tablet by ity of tablet 00:00: mouth [place] 00 every 6 Medical (six) Branch hours as needed for Nausea and Vomiting (N/V). proMETHazin 2018-0 Yes [id number] 25mg Insert 1 Univers e 5-23 Suppositor ity of (PHENERGAN) 00:00: y into [place] 25 mg 00 rectum Medical suppository every 6 Branc h (six) hours as needed for Nausea and Vomiting (N/V). dicyclomine 2019- Yes [id number] 10mg Take 1 Univers (BENTYL) 10 5-23 capsule by it y of mg capsule 00:00: mouth 4 [place] 00 (four) Medical times Branch daily as needed for Abdominal pain. proMETHazin 2018-0 Yes [id number] 25mg Take 1 Univers e 25 mg 5-23 tablet by ity of tablet 00:00: mouth [place] 00 every 6 Medical (six) Branch hours as needed for Nausea and Vomiting (N/V). proMETHazin 2018-0 Yes [id number] 25mg Insert 1 Univers e 5-23 Suppositor ity of (PHENERGAN) 00:00: y into [place] 25 mg 00 rectum Medical suppository every 6 Branc h (six) hours as needed for Nausea and Vomiting (N/V). dicyclomine Yes [id number] 10mg Take 1 Univers (BENTYL) 10 5-23 capsule by it y of mg capsule 00:00: mouth 4 [place] 00 (four) Medical times Branch daily as needed for Abdominal pain. proMETHazin Yes [id number] 25mg Take 1 Univers e 25 mg 5-23 tablet by ity of tablet 00:00: mouth [place] 00 every 6 Medical (six) Branch hours as needed for Nausea and Vomiting (N/V). proMETHazin Yes [id number] 25mg Insert 1 Univers e 5-23 Suppositor ity of (PHENERGAN) 00:00: y into [place] 25 mg 00 rectum Medical suppository every 6 Branc h (six) hours as needed for Nausea and Vomiting (N/V). dicyclomine Yes [id number] 10mg Take 1 Univers (BENTYL) 10 5-23 capsule by it y of mg capsule 00:00: mouth 4 [place] 00 (four) Medical times Branch daily as needed for Abdominal pain. proMETHazin Yes [id number] 25mg Take 1 Univers e 25 mg 5-23 tablet by ity of tablet 00:00: mouth [place] 00 every 6 Medical (six) Branch hours as needed for Nausea and Vomiting (N/V). proMETHazin Yes [id number] 25mg Insert 1 Univers e 5-23 Suppositor ity of (PHENERGAN) 00:00: y into [place] 25 mg 00 rectum Medical suppository every 6 Branc h (six) hours as needed for Nausea and Vomiting (N/V). dicyclomine Yes [id number] 10mg Take 1 Univers (BENTYL) 10 5-23 capsule by it y of mg capsule 00:00: mouth 4 [place] 00 (four) Medical times Branch daily as needed for Abdominal pain. proMETHazin Yes [id number] 25mg Take 1 Univers e 25 mg 5-23 tablet by ity of tablet 00:00: mouth [place] 00 every 6 Medical (six) Branch hours as needed for Nausea and Vomiting (N/V). proMETHazin 2018- Yes [id number] 25mg Insert 1 Univers e 5-23 Suppositor ity of (PHENERGAN) 00:00: y into [place] 25 mg 00 rectum Medical suppository every 6 Branc h (six) hours as needed for Nausea and Vomiting (N/V). dicyclomine 2018- Yes [id number] 10mg Take 1 Univers (BENTYL) 10 5-23 capsule by it y of mg capsule 00:00: mouth 4 [place] 00 (four) Medical times Branch daily as needed for Abdominal pain. proMETHazin Yes [id number] 25mg Take 1 Univers e 25 mg 5-23 tablet by ity of tablet 00:00: mouth [place] 00 every 6 Medical (six) Branch hours as needed for Nausea and Vomiting (N/V). proMETHazin 2018- Yes [id number] 25mg Insert 1 Univers e 5-23 Suppositor ity of (PHENERGAN) 00:00: y into [place] 25 mg 00 rectum Medical suppository every 6 Branc h (six) hours as needed for Nausea and Vomiting (N/V). dicyclomine 2018- Yes [id number] 10mg Take 1 Univers (BENTYL) 10 5-23 capsule by it y of mg capsule 00:00: mouth 4 [place] 00 (four) Medical times Branch daily as needed for Abdominal pain. proMETHazin 2018- Yes [id number] 25mg Take 1 Univers e 25 mg 5-23 tablet by ity of tablet 00:00: mouth [place] 00 every 6 Medical (six) Branch hours as needed for Nausea and Vomiting (N/V). proMETHazin 2018- Yes [id number] 25mg Insert 1 Univers e 5-23 Suppositor ity of (PHENERGAN) 00:00: y into [place] 25 mg 00 rectum Medical suppository every 6 Branc h (six) hours as needed for Nausea and Vomiting (N/V). dicyclomine 2018- Yes [id number] 10mg Take 1 Univers (BENTYL) 10 5-23 capsule by it y of mg capsule 00:00: mouth 4 [place] 00 (four) Medical times Branch daily as needed for Abdominal pain. dicyclomine 2018-0 Yes [id number] 10mg Take 1 Univers (BENTYL) 10 5-23 capsule by it y of mg capsule 00:00: mouth 4 [place] 00 (four) Medical times Branch daily as needed for Abdominal pain. proMETHazin Yes [id number] 25mg Take 1 Univers e 25 mg 5-23 tablet by ity of tablet 00:00: mouth [place] 00 every 6 Medical (six) Branch hours as needed for Nausea and Vomiting (N/V). proMETHazin Yes [id number] 25mg Insert 1 Univers e 5-23 Suppositor ity of (PHENERGAN) 00:00: y into [place] 25 mg 00 rectum Medical suppository every 6 Branc h (six) hours as needed for Nausea and Vomiting (N/V). proMETHazin Yes [id number] 25mg Take 1 Univers e 25 mg 5-23 tablet by ity of tablet 00:00: mouth [place] 00 every 6 Medical (six) Branch hours as needed for Nausea and Vomiting (N/V). proMETHazin Yes [id number] 25mg Insert 1 Univers e 5-23 Suppositor ity of (PHENERGAN) 00:00: y into [place] 25 mg 00 rectum Medical suppository every 6 Branc h (six) hours as needed for Nausea and Vomiting (N/V). dicyclomine Yes [id number] 10mg Take 1 Univers (BENTYL) 10 5-23 capsule by it y of mg capsule 00:00: mouth 4 [place] 00 (four) Medical times Branch daily as needed for Abdominal pain. proMETHazin Yes [id number] 25mg Take 1 Univers e 25 mg 5-23 tablet by ity of tablet 00:00: mouth [place] 00 every 6 Medical (six) Branch hours as needed for Nausea and Vomiting (N/V). proMETHazin Yes [id number] 25mg Insert 1 Univers e 5-23 Suppositor ity of (PHENERGAN) 00:00: y into [place] 25 mg 00 rectum Medical suppository every 6 Branc h (six) hours as needed for Nausea and Vomiting (N/V). dicyclomine Yes [id number] 10mg Take 1 Univers (BENTYL) 10 5-23 capsule by it y of mg capsule 00:00: mouth 4 [place] 00 (four) Medical times Branch daily as needed for Abdominal pain. proMETHazin Yes [id number] 25mg Take 1 Univers e 25 mg 5-23 tablet by ity of tablet 00:00: mouth [place] 00 every 6 Medical (six) Branch hours as needed for Nausea and Vomiting (N/V). proMETHazin Yes [id number] 25mg Insert 1 Univers e 5-23 Suppositor ity of (PHENERGAN) 00:00: y into [place] 25 mg 00 rectum Medical suppository every 6 Bran h (six) hours as needed for Nausea and Vomiting (N/V). FLUOXETINE 2015-07 Yes Take by Univ ers HCL (PROZAC 0-24 mouth. ity of ORAL) 15:29: [address] FLUOXETINE 2015-07 Yes Take by Univ ers HCL (PROZAC 0-24 mouth. ity of ORAL) 15:29: [address] FLUOXETINE 2015-07 Yes Take by Univ ers HCL (PROZAC 0-24 mouth. ity of ORAL) 15:29: [address] FLUOXETINE 2015-07 Yes Take by Univ ers HCL (PROZAC 0-24 mouth. ity of ORAL) 15:29: [address] FLUOXETINE 2015-07 Yes Take by Univ ers HCL (PROZAC 0-24 mouth. ity of ORAL) 15:29: [address] FLUOXETINE 2015-07 Yes Take by Univ ers HCL (PROZAC 0-24 mouth. ity of ORAL) 15:29: [address] Yes 1{tbl} Take 1 Unive rs [...] 00 (two) Medical tablet times Branch daily. Levaquin Levaquin No 1{table QD Levaquin 750 MG 750 MG t} 750 MG Fluoxetine Fluoxetine No 1{capsu QD Fluoxetine HCl 20 MG HCl 20 MG le} HCl 20 MG Immunizations Ordered Filled Immunization Date Status Comments Sour e Immunization Name Name Rho (d) Immune 2016-02-23 Completed University of Globulin 00:00:00 [facility] Rho (d) Immune 2016-02-23 Completed University of Globulin 00:00:00 [facility] Rho (d) Immune 2016-02-23 Completed University of Globulin 00:00:00 [facility] Rho (d) Immune 2016-02-23 Completed [facility] 00:00:00 [facility] Rho (d) Immune 2016-02-23 Completed [facility] 00:00:00 [facility] Rho (d) Immune 2016-02-23 Completed [facility] 00:00:00 [facility] Rho (d) Immune 2016-02-23 Completed [facility] 00:00:00 [facility] Rho (d) Immune 2016-02-23 Completed [facility] 00:00:00 [facility] Rho (d) Immune 2016-02-23 Completed [facility] 00:00:00 [facility] Rho (d) Immune 2016-02-23 Completed [facility] 00:00:00 [facility] Rho (d) Immune 2016-02-23 Completed [facility] 00:00:00 [facility] Rho (d) Immune 2016-02-23 Completed [facility] 00:00:00 [facility] Rho (d) Immune 2016-02-23 Completed [facility] 00:00:00 [facility] Rho (d) Immune 2016-02-23 Completed [facility] 00:00:00 [facility] Rho (d) Immune 2016-02-23 Completed [facility] 00:00:00 [facility] TDAP 2016-01-23 Completed University of 00:00:00 [facility] TDAP 2016-01-23 Completed University of 00:00:00 [facility] TDAP 2016-01-23 Completed University of 00:00:00 [facility] TDAP 2016-01-23 Completed University of 00:00:00 [facility] TDAP 2016-01-23 Completed University of 00:00:00 [facility] TDAP 2016-01-23 Completed University of 00:00:00 [facility] TDAP 2016-01-23 Completed University of 00:00:00 [facility] TDAP 2016-01-23 Completed University of 00:00:00 [facility] TDAP 2016-01-23 Completed University of 00:00:00 [facility] TDAP 2016-01-23 Completed University of 00:00:00 [facility] TDAP 2016-01-23 Completed University of 00:00:00 [facility] TDAP 2016-01-23 Completed University of 00:00:00 [facility] TDAP 2016-01-23 Completed University of 00:00:00 [facility] TDAP 2016-01-23 Completed University of 00:00:00 [facility] TDAP 2016-01-23 Completed University of 00:00:00 [facility] Rho (d) Immune 2015-12-21 Completed [facility] 00:00:00 [facility] Rho (d) Immune 2015-12-21 Completed [facility] 00:00:00 [facility] Rho (d) Immune 2015-12-21 Completed [facility] 00:00:00 [facility] Rho (d) Immune 2015-12-21 Completed [facility] 00:00:00 [facility] Rho (d) Immune 2015-12-21 Completed [facility] 00:00:00 [facility] Rho (d) Immune 2015-12-21 Completed [facility] 00:00:00 [facility] Rho (d) Immune 2015-12-21 Completed [facility] 00:00:00 [facility] Rho (d) Immune 2015-12-21 Completed [facility] 00:00:00 [facility] Rho (d) Immune 2015-12-21 Completed [facility] 00:00:00 [facility] Rho (d) Immune 2015-12-21 Completed [facility] 00:00:00 [facility] Rho (d) Immune 2015-12-21 Completed [facility] 00:00:00 [facility] Rho (d) Immune 2015-12-21 Completed [facility] 00:00:00 [facility] Rho (d) Immune 2015-12-21 Completed [facility] 00:00:00 [facility] Rho (d) Immune 2015-12-21 Completed [facility] 00:00:00 [facility] Rho (d) Immune 2015-12-21 Completed [facility] 00:00:00 [facility] Vital Signs Vital Name Observation Time Observation Value Comments Source Systolic blood 2021-05-11 15:19:00 109 mm[Hg] Univer sity of pressure [facility] Diastolic blood 2021-05-11 15:19:00 73 mm[Hg] Unive rsity of [facility] Heart rate 2021-05-11 15:19:00 74 /min [facility] Body temperature 2021-05-11 15:19:00 36.78 Giulia [facility] Respiratory rate 2021-05-11 15:19:00 16 /min [facility] Body weight 2021-05-11 15:19:00 71.396 kg [facility] BMI 2021-05-11 15:19:00 22.58 kg/m2 [facility] Oxygen saturation in 2021-05-11 15:19:00 98 /min [facility] Arterial blood by [facility] Pulse oximetry Branch Systolic blood 2021-02-18 17:00:00 112 mm[Hg] Univer sity of pressure [facility] Diastolic blood 2021-02-18 17:00:00 79 mm[Hg] Unive rsity of pressure [facility] Heart rate 2021-02-18 17:00:00 64 /min [facility] Body temperature 2021-02-18 17:00:00 36.72 Giulia [facility] rate 2021-02-18 17:00:00 17 /min [facility] Body height 2021-02-18 17:00:00 177.8 cm [facility] Body weight 2021-02-18 17:00:00 68.04 kg [facility] BMI 2021-02-18 17:00:00 21.52 kg/m2 [facility] Oxygen saturation in 2021-02-18 17:00:00 99 /min University of Arterial blood by [facility] Pulse oxim[facility] Branch Systolic blood 2020-08-04 17:05:00 98 mm[Hg] [facility]ity [facility] Diastolic blood 2020-08-04 17:05:00 66 mm[Hg] Unive [facility]ity of [facility] Heart rate 2020-08-04 17:05:00 48 /min [facility] Oxygen saturation in 2020-08-04 17:05:00 100 /min University of Arterial blood by [facility] Pulse oxim[facility] Body temperature 2020-08-04 16:35:00 36.33 Giulia [facility] [place] [facility] Respiratory rate 2020-08-04 15:01:00 16 /min [facility] Body height 2020-08-04 15:01:00 177.8 cm [facility] Body weight 2020-08-04 15:01:00 65.772 kg [facility] BMI 2020-08-04 15:01:00 20.81 kg/m2 [facility] Systolic blood 2020-07-27 20:31:00 112 mm[Hg] [facility]ity [facility] Diastolic blood 2020-07-27 20:31:00 72 mm[Hg] Unive [facility]ity of [facility] Heart rate 2020-07-27 20:31:00 77 /min [facility] Body temperature 2020-07-27 20:31:00 36.11 Giulia [facility] [place] [facility] Respiratory rate 2020-07-27 20:31:00 18 /min [facility] Body height 2020-07-27 20:31:00 177.8 cm [facility] Body weight 2020-07-27 20:31:00 65.318 kg [facility] BMI 2020-07-27 20:31:00 20.66 kg/m2 Universi ty of [facility] Oxygen saturation in 2020-07-27 20:31:00 98 /min University of Arterial blood by [facility] Pulse oxim[facility] Branch weight 2020-05-18 14:15:00 143.6 [lb_av] [facility] temperature 2020-05-18 14:15:00 99 [degF] [facility] bmi 2020-05-18 14:15:00 20.6 kg/m2 [facility] oximetry 2020-05-18 14:15:00 99 % [facility] blood pressure 2020-05-18 14:15:00 102 mm[Hg] [facility] systolic [facility] blood pressure 2020-05-18 14:15:00 61 mm[Hg] [facility] diastolic [facility] height 2020-05-18 14:15:00 70 [in_i] [facility] Systolic blood 2020-05-17 19:06:00 113 mm[Hg] Univer sity of pressure [facility] Diastolic blood 2020-05-17 19:06:00 76 mm[Hg] Unive rsity of pressure [facility] Heart rate 2020-05-17 19:06:00 60 /min Universi ty of [facility] Respiratory rate 2020-05-17 19:06:00 16 /min Univ ersity of [facility] Oxygen saturation in 2020-05-17 19:06:00 100 /min University of Arterial blood by [facility] Pulse oxim[facility] Branch Body temperature 2020-05-17 18:15:00 37.39 Giulia Univ ersity of [facility] Body height 2020-05-17 18:15:00 177.8 cm [facility] [place] [facility] Body weight 2020-05-17 18:15:00 63.504 kg Universi ty of [facility] BMI 2020-05-17 18:15:00 20.09 kg/m2 Universi ty of [facility] Systolic blood 2020-05-11 17:18:23 98 mm[Hg] Univer sity of pressure [facility] Diastolic blood 2020-05-11 17:18:23 66 mm[Hg] Unive rsity of pressure [facility] Heart rate 2020-05-11 17:18:23 51 /min [facility] Respiratory rate 2020-05-11 17:18:23 16 /min [facility] Oxygen saturation in 2020-05-11 17:18:23 99 /min [facility] Arterial blood by [facility] Pulse oximetry Reader Body temperature 2020-05-11 14:45:00 37.17 Giulia [facility] Body weight 2020-05-11 14:45:00 63.504 kg [facility] BMI 2020-05-11 14:45:00 20.09 kg/m2 [facility] Procedures Procedure Date / Time Performing Clinician Source Performed POCT GRP A STREP 2021-05-11 00:00:00 Ladonna Marin [facility] ([facility]) [facility] POCT GRP A STREP 2021-02-18 00:00:00 Theresa Johnson [facility] ([facility]) [facility] EGD (ENDO) 2020-08-04 15:59:28 Self Referred, [facility] Facility [facility] CONSENT/REFUSAL FOR 2020-08-04 14:38:44 Doctor Unassigned, No Un [facility] DIAGNOSIS AND TREATMENT [facility] ASSIGNMENT OF BENEFITS 2020-08-04 14:33:04 Doctor Unassigned, No General acute hospital ASSIGNMENT OF BENEFITS 2020-07-27 20:24:28 Doctor Unassigned, No General acute hospital XR KUB 2020-05-17 19:03:58 Marquita Bonilla [facility] LIPASE 2020-05-17 18:58:00 Marquita Bonilla [facility] COMP. METABOLIC PANEL 2020-05-17 18:58:00 Marquita Bonilla [facility] ([id number]) [facility] CBC WITH DIFF 2020-05-17 18:58:00 Marquita Bonilla [facility] URINALYSIS 2020-05-17 18:39:00 Marquita Bonilla [facility] POCT TEST 2020-05-17 18:35:00 Marquita Bonilla [facility] NOTICE OF PRIVACY 2020-05-17 17:54:46 Doctor Unassigned, No Univ [facility] PRACTICES Name Medical Branch CONSENT/REFUSAL FOR 2020-05-17 17:54:35 Doctor Unassigned, No Un [facility] [place] DIAG[facility] TREAT[facility] Name [facility] Branch AUTHORIZATION FOR 2020-05-15 05:01:00 Doctor Unassigned, No [facility] RELEASE OF PHI Name [facility] CT ABDOMEN PELVIS W 2020-05-11 16:20:59 Suly Richardson [facility] COMP. METABOLIC PANEL 2020-05-11 15:31:00 Suly Richardson [facility] ([id number]) [facility] CBC WITH DIFF 2020-05-11 15:31:00 Suly Richardson [facility] URINALYSIS 2020-05-11 15:25:00 Suly Richardson [facility] CONSENT/REFUSAL FOR 2020-05-11 14:32:23 Doctor Unassigned, No [facility] [place] [facility]REAT[facility] Name [facility] Plan of Care Planned Activity Planned Date Details Comments Source Future Scheduled 2022-01-23 COVID-19 Vaccination [facility] [place] Test 05:53:19 (#1) [code = COVID-19 MD And bruce Cancer Vaccination (#1)] Center Encounters Start End Encounter Admission Attending Care Care Encounter Source Date/Time Date/Time Type Type Clinicians Facility Department ID 2021-08-15 Outpatient [facility] [id number] Common 12:00:25 [id number] [facility] 2021-05-19 Outpatient Martine REVELES [facility] PATTY [id number] Univers 16:12:23 GEORGE ity [facility] 2021-05-19 Emergency [facility] [id number] Univers 01:36:28 ity of [facility] 2021-05-19 Emergency [facility] [id number] Univers 00:25:43 ity [facility] 2021-05-11 2021-05-11 [facility] 1.2.840.114 [id number] Univers 10:16:27 10:36:27 Care [facility] [id number] it y of [place] [id number] Demetrius as Addison?Blea [phone] [place] serena anaya [address] 2021-05-11 2021-05-11 Outpatient R TOMAS [facility] [id number] Univers 10:20:00 10:20:00 LADONNA ity of [facility] 2021-02-18 2021-02-18 Urgent Theresa Johnson [facility] 1.2.840. 114 [id number] Univers 11:53:11 12:16:54 [facility] 350.1.1 3.10 ity of [place] [id number] Demetrius as Professio [phone] [place] analiapat eckert [address] 2021-02-18 2021-02-18 Outpatient R CHASE [facility] [id number] Univers 12:00:00 12:00:00 FRANNY Hung y of [facility] 2020-08-15 2020-08-15 Telephone Jelly [facility] 1.2.840.114 [id number] Univers 00:00:00 00:00:00 Faith raymundo SPECIALTY [id number] ity [id number] [phone] [place] serena HODGES 2 [facility] 2020-08-11 2020-08-11 Telephone Anushka [facility] [id number] Univers 00:00:00 00:00:00 George SPECIALTY [id number] ity [id number] [phone] [place] dicpat HODGES 072 [facility] 2020-08-04 2020-08-04 Hospital Anushka [facility] 1.2.840.114 [id number] Univers 08:33:00 11:15:00 Encounter [facility] Health [id number] [place]y [id number] [place] [phone] [address] ([facility]) 2020-08-01 2020-08-01 Laboratory Only, Adc Test [facility] 1.2.840. 114 [id number] Univers 11:53:52 12:08:52 Only Kedar Nicole [id number] ity of [place] 4.2.7.2.686 [facility] [phone] [facility] 353 Branch 2020-08-01 2020-08-01 Outpatient R [facility] [id number] Univers 11:45:00 11:45:00 ity of [facility] 2020-07-27 2020-07-27 Office Faith Escamilla [facility] 1.2 .840.114 [id number] Univers 14:27:11 14:57:11 Visit Andrew Spicer [id number] ity of [facility] 4.2.7.2.[address] [place] [address] AT [phone] [place] serena HODGES [address] [place] [address] 2020-07-27 2020-07-27 Outpatient R [facility] [id number] Univers 14:30:00 14:30:00 ity of [facility] 2020-07-27 2020-07-27 Orders Doctor JEY 1.2.840.114 [id number] Univers 00:00:00 00:00:00 Only Unassigned, ROBSON [id number] ity of [place] [facility] [address] [place] [address] [phone] [facility] 009 Branch 2020-05-18 2020-05-18 OFFICE [facility] [id number] Co mmon 00:00:00 00:00:00 VISIT TOMMY Lee it PT LEVEL 3 - [facility] 2020-05-17 2020-05-17 Emergency Chad [facility] 1.2.840.114 [id number] Univers 13:18:00 15:46:00 Marquita Padilla [id number] ity of [place] 4.2.[address] [place] [address] [phone] [facility] 084 Branch 2020-05-17 2020-05-17 Orders Doctor KHANNA 1.2.840.114 [id number] Univers 00:00:00 00:00:00 Only Unassigned, ROBSON [id number] ity of [place] [facility] 4.2.7.2.686 Demetrius as [phone] [address] 2020-05-15 2020-05-15 Orders Doctor JEY 1.2.840.114 [id number] Univers 00:00:00 00:00:00 Only Unassigned, ROBSON [id number] ity of [place] [facility] 4.2.7.2.686 Demetrius as [phone] [address] 2020-05-11 2020-05-11 Emergency Richardson, [facility] 1.2.840.114 [id number] Univers 09:48:00 12:58:00 Suly Padilla 350.1.13.10 i ty of [place] 4.2.7.2.686 [place] [facility] [phone] [address] 2020-05-11 2020-05-11 Orders Doctor JEY 1.2.840.114 [id number] Univers 00:00:00 00:00:00 Only Unassigned, ROSBON 350.1.13.10 ity of [place] [facility] 4.2.7.2.686 Demetrius as [phone] [address] Results Test Description Test Time Test Comments Results Result Comments Source POCT GRP A STREP (MOLECULAR) 2021-05-11 15:30:00 Test Item Value Reference Range Interpretation Comme nts POCT GP A STREP (test code = neg Negative - Negative 88165-9) STEVE (test code = STEVE) accurate development and interpretation of all internal controls Lab Interpretation (test code = Normal 66785-5) [facility] GRP A STREP (MOLECULAR)2021-02-18 17:18:00 Test Item Value Reference Range Interpretation Comments POCT GP A STREP (test code = negative Negative - Negative 30928-9) [facility]. METABOLIC PANEL (11933)2020-05-17 19:42:00 Test Item Value Reference Range Interpretation Comments NA (test code = 138 mmol/L 135-145 4198186848) K (test code = 3.6 mmol/L 3.5-5 0522797875) CL (test code = 102 mmol/L 98-108 4477517919) CO2 TOTAL (test code = 29 mmol/L 23-31 2803249498) AGAP (test code = 2-16 3424954532) BUN (test code = 9 mg/dL 7-23 7431820863) GLUCOSE (test code = 88 mg/dL 70-110 2824721030) CREATININE (test code 0.78 mg/dL 0.5-1.04 = 4061033587) TOTAL BILI (test code 0.7 mg/dL 0.1-1.1 = 4516472945) CALCIUM (test code = 9.5 mg/dL 8.6-10.6 7521959235) T PROTEIN (test code = 6.8 g/dL 6.3-8.2 0369390164) ALBUMIN (test code = 4.1 g/dL 3.5-5 6637636517) ALK PHOS (test code = 44 U/L 34-122 3244402104) ALTv (test code = 17 U/L 5-35 1742-6) AST(SGOT) (test code = 21 U/L 13-40 6344131313) eGFR Calculation mL/min/1.73m2 (Non-) (test code = 9206278082) eGFR Calculation mL/min/1.73m2 () (test code = 3067214517) STEVE (test code = STEVE) Association of [...] or urine or abnormalities in imaging tests). [facility] 19:[facility]00 Test Item Value Reference Range Interpretation Comments LIPASE (test code = 7372725424) 114 U/L 0-220 Lab Interpretation (test code = Normal 06065-1) [facility] [id number] 19:31:00 Test Item Value Reference Range Interpretation Comments WBC (test code = See_Comment L [Automated 8390-2) message] The sy stem which generated this result transmitted reference range : 4.30 - 11.10 10*3/?L. The reference range was not used to interpret this result as normal/abnormal . RBC (test code = See_Comment [Automated 819-8) message] The sy stem which generated this [...] (test code = 37.7 fL 39-49.9 L 15629-1) RDW-CV (test code = 11.9 % 12-15.5 L 788-0) PLT (test code = See_Comment [Automated 777-3) message] The sy stem which generated this result transmitted reference range : 166 - 358 10*3/ ?L. The reference r april was not used to interpret this result as normal/abnormal . MPV (test code = 11.4 fL 9.5-12.9 14060-7) NRBC/100 WBC (test See_Comment [Automat ed code = 1345342721) message] The system which generated this result transmitted reference range : 0.0 - 10.0 /100 WBCs. The refer ence range was not u sed to interpret th is result as normal/abnormal . NRBC x10^3 (test code <0.01 See_Comment [Auto mated = 8834008727) message] The s ystem which generated this result transmitted reference range : 10*3/?L. The reference range was not used to interpret this result as normal/abnormal . GRAN MAT (NEUT) % 57.0 % (test code = 770-8) IMM GRAN % (test code 0.30 % = 5043423762) LYMPH % (test code = 34.9 % 736-9) MONO % (test code = 6.3 % 5905-5) EOS % (test code = 1.0 % 713-8) BASO % (test code = 0.5 % 706-2) GRAN MAT x10^3(ANC) 2.27 10*3/uL 1.88-7.09 (test code = 0851774885) IMM GRAN x10^3 (test <0.03 0-0.06 code = 7889161524) LYMPH x10^3 (test code 1.39 10*3/uL 1.32-3.29 = 731-0) MONO x10^3 (test code 0.25 10*3/uL 0.33-0.92 L = 742-7) EOS x10^3 (test code = 0.04 10*3/uL 0.03-0.39 711-2) BASO x10^3 (test code <0.03 0.01-0.07 = 704-7) Lab Interpretation Abnormal (test code = 69228-7) [facility] 19:16[facility]00 Test Item Value Reference Range Interpretation Comments APPEARANCE (test code = Clear Clear 5730267702) COLOR (test code = Straw Yellow A 2631885475) PH (test code = 4.8-8.0 5386370614) SP GRAVITY (test code = 1.003-1.030 3402591501) GLU U QUAL (test code = Normal Normal 0125118472) BLOOD (test code = Negative Negative 9721403159) KETONES (test code = Negative Negative 4657614466) PROTEIN (test code = Negative Negative 2887-8) UROBILIN (test code = Normal Normal 4519036017) BILIRUBIN (test code = Negative Negative 2623497819) NITRITE (test code = Negative Negative 3170595073) LEUK WU (test code = Negative Negative 2368394804) RBC/HPF (test code = See_Comment [Autom ated message] 9802745055) The system [employer] generated this result transmitted ref erence range: 0 - 3 HP F. The reference range was not used to int erpret this result as normal/abnormal . WBC/HPF (test code = See_Comment [Autom ated message] 2821132471) The system [employer] generated this result transmitted ref erence range: 0 - 5 HP F. The reference range was not used to int erpret this result as normal/abnormal . BACTERIA (test code = Negative Negative 2818319167) SQ EPITH (test code = HPF 4583303720) Lab Interpretation (test Abnormal code = 03454-8) [facility] [id number] 19:06:00HISTORY: Abdominal pain. FINDINGS: AP supine view [...] noted with the upper sacrum.CONCLUSIONS: No acute findings.[facility] [id number] 18:40:00 Test Item Value Reference Range Interpretation Comments POCT PREG (test code = 1605) Negative On board controls acceptable with Yes C Line (test code = 3574) POCT PREG LOT # (test code = 3575) [id number] POCT PREG TEST DATE (test 10/18/2021 code = 3576) Lab Interpretation (test code = Normal 86953-8) [facility] PELVIS W [id number] 16:52:15 No acute abnormality. No colitis or [...] small to characterize. Subcentimeter hypodensityalong falciform ligament suggestive of focal fatty infiltration. Top normaldiameter CBD measuring 0.6 cm compatible with reservoir phenomena relatedto cholecystectomy. SPLEEN: No splenomegaly. PANCREAS: No ductal dilation, orsolid masses. ADRENAL GLANDS: No adrenal nodules. KIDNEYS: No hydronephrosis or stone. No solid mass. GI TRACT: No dilation or wall thickening. Normal appendix. Moderate stoolburden. PERITONEUM AND RETROPERITONEUM: No free air or free fluid. LYMPH NODES: No lymphadenopathy is seen. PELVIS/BLADDER: Theuterus is anteverted. And intrauterine device in situ.A [...] small to characterize. Subcentimeter hypodensityalong falciform ligament suggestive of focal fatty infiltration. Top normaldiameter CBD measuring 0.6 cm compatible with reservoir phenomena relate dto cholecystectomy.SPLEEN: No splenomegaly.PANCREAS: No ductal dilation, or solid masses.ADRENAL GLANDS: No adrenal nodules.KIDNEYS: No hydronephrosis or stone. No solid mass.GI TRACT: No dilation or wall thickening. Normal appendix. Moderate stoolburden.PERITONEUM AND RETROPERITONEUM: No free air orfree fluid.LYMPH NODES: No lymphadenopathy is seen.PELVIS/BLADDER: The uterus is anteverted. And intrauterine device in situ.A crenated follicle is seen in the right ovary.VESSELS: No aortic aneurysm or critical stenosis.BONES AND SOFT TISSUES: No aggressive osseous lesion. Small fat-containingumbilical hernia.IMPRESSIONNo acute abnormality. No colitis or diverticulitis or hydronephrosis.Moderate stool burden.Hepatic steatosis.[facility]. METABOLIC PANEL (01220)2020-05-11 15:56:00 Test Item Value Reference Range Interpretation Comments NA (test code = 135 mmol/L 135-145 4519446836) K (test code = 4.0 mmol/L 3.5-5 5517962110) CL (test code = 101 mmol/L 98-108 1628859824) CO2 TOTAL (test code = 26 mmol/L 23-31 1511972505) AGAP (test code = 2-16 6800701635) BUN (test code = 11 mg/dL 7-23 4677508038) GLUCOSE (test code = 92 mg/dL 70-110 1597672966) CREATININE (test code = 0.76 mg/dL 0.5-1.04 2039053930) TOTAL BILI (test code = 1.4 mg/dL 0.1-1.1 H 8590243987) CALCIUM (test code = 9.3 mg/dL 8.6-10.6 4807403659) T PROTEIN (test code = 6.5 g/dL 6.3-8.2 6845514559) ALBUMIN (test code = 4.1 g/dL 3.5-5 9249318253) ALK PHOS (test code = 44 U/L 34-122 6396760491) ALTv (test code = 14 U/L 5-35 1742-6) AST(SGOT) (test code = 19 U/L 13-40 6290996678) eGFR Calculation mL/min/1.73m2 (Non-) (test code = 8748020702) eGFR Calculation mL/min/1.73m2 () (test code = 8169000947) STEVE (test code = STEVE) Association of [...] tests). Lab Interpretation Abnormal (test code = 07834-3) [facility] [id number] 15:54:00 Test Item Value Reference Range Interpretation Comments APPEARANCE (test code = Clear Clear 1342383063) COLOR (test code = Yellow Yellow 2487841792) PH (test code = 4.8-8.0 1377950035) SP GRAVITY (test code = 1.003-1.030 0166723527) GLU U QUAL (test code = Normal Normal 0348163656) BLOOD (test code = Negative Negative 0187823403) KETONES (test code = Negative Negative 7069070301) PROTEIN (test code = Negative Negative 2887-8) UROBILIN (test code = Normal Normal 1982807557) BILIRUBIN (test code = Negative Negative 5832467553) NITRITE (test code = Negative Negative 0921390873) LEUK WU (test code = 75/uL Negative A 3855562216) RBC/HPF (test code = See_Comment H [Autom ated message] 7295450829) The system [employer] generated this result transmitted ref erence range: 0 - 3 HP F. The reference range was not used to int erpret this result as normal/abnormal . WBC/HPF (test code = See_Comment [Autom ated message] 4815277653) The system [employer] generated this result transmitted ref erence range: 0 - 5 HP F. The reference range was not used to int erpret this result as normal/abnormal . BACTERIA (test code = Few Negative A 1369655427) MUCOUS (test code = Slight Negative LPF A 2305785076) SQ EPITH (test code = HPF 2482821646) Lab Interpretation (test Abnormal code = 45160-0) [facility] with [id number] 15:41:00 Test Item Value Reference Range Interpretation Comments WBC (test code = See_Comment [Automated 8390-2) message] The sy stem which generated this result transmitted reference range : 4.30 - 11.10 10*3/?L. The reference range was not used to interpret this result as normal/abnormal . RBC (test code = See_Comment [Automated 819-8) message] The sy stem which generated this [...] (test code = 37.7 fL 39-49.9 L 55105-3) RDW-CV (test code = 12.0 % 12-15.5 788-0) PLT (test code = See_Comment [Automated 777-3) message] The sy stem which generated this result transmitted reference range : 166 - 358 10*3/ ?L. The reference r april was not used to interpret this result as normal/abnormal . MPV (test code = 10.9 fL 9.5-12.9 02396-3) NRBC/100 WBC (test See_Comment [Automat ed code = 0021065092) message] The system which generated this result transmitted reference range : 0.0 - 10.0 /100 WBCs. The refer ence range was not u sed to interpret th is result as normal/abnormal . NRBC x10^3 (test code <0.01 See_Comment [Auto mated = 0694283895) message] The s ystem which generated this result transmitted reference range : 10*3/?L. The reference range was not used to interpret this result as normal/abnormal . GRAN MAT (NEUT) % 61.8 % (test code = 770-8) IMM GRAN % (test code 0.20 % = 9650929076) LYMPH % (test code = 29.2 % 736-9) MONO % (test code = 7.2 % 5905-5) EOS % (test code = 0.7 % 713-8) BASO % (test code = 0.9 % 706-2) GRAN MAT x10^3(ANC) 2.67 10*3/uL 1.88-7.09 (test code = 2655737128) IMM GRAN x10^3 (test <0.03 0-0.06 code = 2949904096) LYMPH x10^3 (test code 1.26 10*3/uL 1.32-3.29 L = 731-0) MONO x10^3 (test code 0.31 10*3/uL 0.33-0.92 L = 742-7) EOS x10^3 (test code = 0.03 10*3/uL 0.03-0.39 711-2) BASO x10^3 (test code 0.04 10*3/uL 0.01-0.07 = 704-7) Lab Interpretation Abnormal (test code = 85935-8) [facility]"
[2022-08-31] MEDS ORDERED: NA CHLORIDE 0.9% 1,000 ML ONE (12:20)
[2022-08-31 12:29] LABS: Absolute Lymphocytes (CBC) 1.1 K/uL (0.7-4.9); Hematocrit 47.9 % (36.0-45.0); Lymphocytes % 16.8 % (15.3-44.8); MPV 8.6 fL (7.6-11.3); RBC Red Blood Cell Count 5.44 M/uL (3.86-4.86)
[2022-08-31 12:47] LABS: Bilirubin Total 0.8 mg/dL (0.2-1.0); Potassium 3.9 mmol/L (3.5-5.1); Protein, Total 6.8 g/dL (6.4-8.2)
[2022-08-31 13:26] LABS: Urine Blood Negative (Negative); Urine Glucose Negative (Negative); Urine Protein Negative (Negative); Urine Specific Gravity 1.015 (1.005-1.030); Urine pH 6.5 (5.0-7.0)
--- NOTE | 2022-08-31 13:35 | RAD REPORT ---
EXAM DESCRIPTION: RAD - Chest Single View - 08/31/2022 1:27 pm CLINICAL HISTORY: CHEST PAIN COMPARISON: Head Brain Wo Cont dated 08/27/2022; Head Brain Wo Cont dated 04/22/2022bdomen 1 View (KUB ) dated 11/06/2021; Chest Single View dated 11/03/2021; Chest Pa And Lat (2 Views) dated 11/02/2019; MAX ST SINGLE VIEW dated 05/02/2010 FINDINGS: Lines: None. Lungs: No evidence of edema or pneumonia. Pleural: No significant pleural effusions or pneumothorax. Cardiac: The heart size is within normal limits. Mediastinum: Within normal limits. Bones: No acute fractures. Other: None IMPRESSION: No acute cardiopulmonary disease.
[2022-08-31] MEDS ORDERED: FAMOTIDINE 20 MG/2 ML VIAL IV ONE (13:39)
[2022-08-31 13:55] LABS: Urine Specific Gravity/Preg 1.015 (1.005-1.030)
--- NOTE | 2022-08-31 14:44 | RAD REPORT ---
EXAM DESCRIPTION: CT - Chest For Pe Angio - 08/31/2022 2:36 pm CLINICAL HISTORY: DYSPNEA COMPARISON: No comparisonsNo comparisons TECHNIQUE: Dynamically enhanced axial 3 mm thick images of the chest were obtained during administra tion of <100> mL Isovue 370 IV contrast. Coronal and oblique reconstruction images were generated and reviewed. Exam utilizes a protocol for optimal evaluation of pulmonary arterial tree. Maximum intensity projections 3D imaging was utilized All CT scans are performed using dose optimization technique as appropriate and may include automated exposure control or mA/KV adjustment according to patient size. FINDINGS: Chest Wall: No suspicious thyroid nodules or pathologic lymphadenopathy. Lungs: No acute abnormality. Pleura: No significant effusions or pneumothorax. Mediastinum/robert: No pathologic lymphadenopathy. Pulmonary arteries/Aorta: No filling defect identified. No aortic aneurysm. Heart: No significant pericardial effusion. Normal heart size. Upper abdomen: No acute abnormality. Bones: No acute abnormality. IMPRESSION: Negative for pulmonary embolism. No acute findings within the chest.
[2022-08-31] MEDS ORDERED: ONDANSETRON 4 MG/2 ML VIAL ONE (14:50)
--- NOTE | 2022-08-31 14:50 | ER ---
Nurse's Notes [facility] Name: Sobeida Kam Age: 32 yrs Sex: Female : 1990 Arrival Date: 08/31/2022 Time: 11:53 Bed 3 Private MD: Diagnosis: Dysphagia, unspecified;Urticaria, unspecified Presentation: 08/31 12:04 Chief complaint: Patient states: difficulty swallowing and pain that began 1 hour ago. ss Pt reports that over the past few weeks she has been breaking out in hives off and on. Coronavirus screen: Client denies travel out of the [place] in the last 14 days. Ebola Screen: Patient denies exposure to infectious person. Patient denies travel to an Ebola-affected area in the 21 days before illness onset. Initial Sepsis Screen: Does the patient meet any 2 criteria? No. Patient's initial sepsis screen is negative. Does the patient have a suspected source of infection? No. Patient's initial sepsis screen is negative. Risk Assessment: Do you want to hurt yourself or someone else? Patient reports no desire to harm self or others. Onset of symptoms was August 31, 2022. 12:04 Method Of Arrival: Ambulatory ss 12:04 Acuity: HINA 3 ss Historical: - Allergies: 12:30 tramadol; ko1 - Home Meds: 12:05 None [Active]; ss - PMHx: 12:05 undiagnosed stomach issue; ss - PSHx: 12:05 Cholecystectomy; ss - Immunization history:: Client reports receiving the 2nd dose of the Covid vaccine. - Social history:: Smoking status: Reported history of juuling and/or vaping. - Family history:: not pertinent. Screenin:24 [facility] ED Fall Risk Assessment (Adult) Score/Fall Risk Level 0 - 2 = Low Risk hb Oriented to surroundings, Maintained a safe environment, Educated pt \T\ family on fall prevention, incl call for assistance when getting out of bed. Abuse screen: Denies threats or abuse. Denies injuries from another. Nutritional screening: No deficits noted. Tuberculosis screening: No symptoms or risk factors identified. Assessment: 14:14 Reassessment: Patient appears in no apparent distress at this time. Patient and/or hb family updated on plan of care and expected duration. Pain level reassessed. Patient is alert, oriented x 3, equal unlabored respirations, skin warm/dry/pink. 15:30 Pain: Denies pain. ko1 Vital Signs: 12:04 BP 124 / 93; Pulse 101; Resp 18; Temp 97.9(TE); Pulse Ox 100% on R/A; Weight 68.04 kg; ss Height 5 ft. 10 in. (177.80 cm); 12:30 BP 108 / 82; Pulse 65; Resp 16; Pulse Ox 97% ; ko1 12:45 BP 114 / 81; Pulse 71; Resp 18; Pulse Ox 99% ; ko1 14:14 BP 99 / 66; Pulse 73; Resp 15; Pulse Ox 99% on R/A; hb 14:52 BP 112 / 74; Pulse 75; Resp 16; Pulse Ox 99% ; ko1 12:04 Body Mass Index 21.52 (68.04 kg, 177.80 cm) ED Course: 11:53 Patient arrived in ED. mr 12:01 Jimmy Spicer MD is Attending Physician. kanu 12:05 Triage completed. ss 12:05 Arm band placed on right wrist. 12:09 Génesis Pascual, LEMUEL is Primary Nurse. ko1 12:21 Inserted saline lock: 20 gauge in right antecubital area, using aseptic technique. hb Blood collected. 12:24 Patient has correct armband on for positive identification. hb 12:24 Comprehensive Metabolic Panel Sent. hb 12:24 Lipase Sent. hb 12:24 CBC with Diff Sent. hb 13:29 Chest Single View XRAY In Process Unspecified. EDMS 13:43 Troponin High Sensitivity Sent. ko1 14:38 CT Chest For PE Angio In Process Unspecified. EDMS 14:49 Sharri Guadalupe MD is Referral Physician. kanu 14:52 No provider procedures requiring assistance completed. ko1 15:30 IV discontinued, intact, bleeding controlled, No redness/swelling at site. Pressure ko1 dressing applied. Administered Medications: 12:24 Drug: NS 0.9% 1000 ml Route: IV; Rate: 1 bolus; Site: right antecubital; hb 13:42 Drug: Pepcid (famotidine) 20 mg Route: IVP; Site: right antecubital; ko1 14:49 CANCELLED (Other Intervention Used): Zofran (Ondansetron) 2 mg IVP once; over 2 minutes ko1 14:49 Drug: Zofran (Ondansetron) 4 mg Route: IVP; Site: right antecubital; ko1 14:49 CANCELLED (Duplicate Order): Zofran (Ondansetron) 4 mg IVP once; over 2 minutes kanu Medication: 14:52 VIS not applicable for this client. ko1 Outcome: 14:50 Discharge ordered by . kanu 15:30 Discharged to home ambulatory. ko1 15:30 Condition: stable 15:30 Discharge instructions given to patient, Instructed on discharge instructions, follow up and referral plans. medication usage, Demonstrated understanding of instructions, follow-up care, medications, Prescriptions given X 3. 15:35 Patient left the ED. ko1 Signatures: Dispatcher [employer] EDMS Jimmy Spicer MD MD cha Rivera, Sobeida Jade Pettit RN RN Jo Brooks RN RN Génesis Pascual RN RN ko1 Corrections: (The following items were deleted from the chart) 12:31 12:05 Allergies: No Known Allergies; ko1 12:31 12:30 Allergies: Tramadol HCl; ko1 ko1
--- NOTE | 2022-08-31 14:50 | EDPHYS ---
Physician Documentation [facility] Name: Sobeida Kam Age: 32 yrs Sex: Female : 1990 Arrival Date: 08/31/2022 Time: 11:53 Bed 3 Private MD: YAA Physician Jimmy Spicer HPI: 08/31 14:33 This 32 yrs old Female presents to ER via Ambulatory with complaints of kanu Difficulty swallowing. 14:33 The patient or guardian reports chest pain that is located primarily in the epigastric kanu area. The patient presents to the emergency department with nausea, that is mild. Onset: The symptoms/episode began/occurred 2 day(s) ago. Possible causes: unknown. The symptoms are aggravated by nothing. The symptoms are alleviated by nothing. The pain does not radiate. Associated signs and symptoms: The patient has no apparent associated signs or symptoms. The chest pain is described as aching. Modifying factors: The symptoms are alleviated by nothing. the symptoms are aggravated by nothing. swallowing. Historical: - Allergies: 12:30 tramadol; ko1 - Home Meds: 12:05 None [Active]; ss - PMHx: 12:05 undiagnosed stomach issue; ss - PSHx: 12:05 Cholecystectomy; ss - Immunization history:: Client reports receiving the 2nd dose of the Covid vaccine. - Social history:: Smoking status: Reported history of juuling and/or vaping. - Family history:: not pertinent. ROS: 14:33 Constitutional: Negative for fever, chills, and weight loss, Eyes: Negative for injury, kanu pain, redness, and discharge, ENT: Negative for injury, pain, and discharge, Neck: Negative for injury, pain, and swelling, Cardiovascular: Negative for chest pain, palpitations, and edema, Respiratory: Negative for shortness of breath, cough, wheezing, and pleuritic chest pain, Back: Negative for injury and pain, : Negative for injury, bleeding, discharge, and swelling, MS/Extremity: Negative for injury and deformity, Skin: Negative for injury, rash, and discoloration, Neuro: Negative for headache, weakness, numbness, tingling, and seizure, Psych: Negative for depression, anxiety, suicide ideation, homicidal ideation, and hallucinations, Allergy/Immunology: Negative for hives, rash, and allergies, Endocrine: Negative for neck swelling, polydipsia, polyuria, polyphagia, and marked weight changes, Hematologic/Lymphatic: Negative for swollen nodes, abnormal bleeding, and unusual bruising. 14:33 Abdomen/GI: Positive for nausea. Exam: 14:33 Constitutional: This is a well developed, well nourished patient who is awake, alert, kanu and in no acute distress. Head/Face: Normocephalic, atraumatic. Eyes: Pupils equal round and reactive to light, extra-ocular motions intact. Lids and lashes normal. Conjunctiva and sclera are non-icteric and not injected. Cornea within normal limits. Periorbital areas with no swelling, redness, or edema. ENT: Nares patent. No nasal discharge, no septal abnormalities noted. Tympanic membranes are normal and external auditory canals are clear. Oropharynx with no redness, swelling, or masses, exudates, or evidence of obstruction, uvula midline. Mucous membranes moist. Neck: Trachea midline, no thyromegaly or masses palpated, and no cervical lymphadenopathy. Supple, full range of motion without nuchal rigidity, or vertebral point tenderness. No Meningismus. Chest/axilla: Normal chest wall appearance and motion. Nontender with no deformity. No lesions are appreciated. Cardiovascular: Regular rate and rhythm with a normal S1 and S2. No gallops, murmurs, or rubs. Normal PMI, no JVD. No pulse deficits. Respiratory: Lungs have equal breath sounds bilaterally, clear to auscultation and percussion. No rales, rhonchi or wheezes noted. No increased work of breathing, no retractions or nasal flaring. Abdomen/GI: Soft, non-tender, with normal bowel sounds. No distension or tympany. No guarding or rebound. No evidence of tenderness throughout. Back: No spinal tenderness. No costovertebral tenderness. Full range of motion. Skin: Warm, dry with normal turgor. Normal color with no rashes, no lesions, and no evidence of cellulitis. MS/ Extremity: Pulses equal, no cyanosis. Neurovascular intact. Full, normal range of motion. Neuro: Awake and alert, GCS 15, oriented to person, place, time, and situation. Cranial nerves II-XII grossly intact. Motor strength 5/5 in all extremities. Sensory grossly intact. Cerebellar exam normal. Normal gait. Psych: Awake, alert, with orientation to person, place and time. Behavior, mood, and affect are within normal limits. 14:33 ECG was reviewed by the Attending Physician. 14:33 Musculoskeletal/extremity: DVT Exam: No signs of deep vein thrombosis. no pain, no swelling, no tenderness, negative Homans' sign noted on exam, no appreciated bluish discoloration, no erythema, no increased warmth. Vital Signs: 12:04 BP 124 / 93; Pulse 101; Resp 18; Temp 97.9(TE); Pulse Ox 100% on R/A; Weight 68.04 kg; ss Height 5 ft. 10 in. (177.80 cm); 12:30 BP 108 / 82; Pulse 65; Resp 16; Pulse Ox 97% ; ko1 12:45 BP 114 / 81; Pulse 71; Resp 18; Pulse Ox 99% ; ko1 14:14 BP 99 / 66; Pulse 73; Resp 15; Pulse Ox 99% on R/A; hb 14:52 BP 112 / 74; Pulse 75; Resp 16; Pulse Ox 99% ; ko1 12:04 Body Mass Index 21.52 (68.04 kg, 177.80 cm) ss MDM: 12:01 Patient medically screened. kanu 14:40 Differential diagnosis: abnormal EKG, acute myocardial infarction, anxiety, chest wall kanu pain, Cholelithiasis Nonspecific abd pain, gastritis, cholecystitis, pancreatitis, esophagitis, hiatal hernia, pancreatitis, peptic ulcer disease, pneumonia, pulmonary embolus, stable angina, unstable angina. HEART Score: History: Slightly Suspicious (0), ECG: Normal (0), Age: < or = 45 years (0), Risk Factors: No Risk Factors Known (0), Troponin: < or = 1 x Normal Limit (0). FAN Risk Score: TOTAL SCORE = 0. Data reviewed: vital signs, nurses notes, lab test result(s), EKG, radiologic studies, CT scan, plain films. Consideration of Admission/Observation Patient was admitted/placed on observation. Escalation of care including admission/observation considered. Independent interpretation of the following test(s) in the Emergency Department EKG: See my EKG interpretation above Rhythm Strip Interpretation Rate: reg nsrBPM. Test considered but Not performed: MRI: mri chest not done. Historians other than the Patient: Spouse/Significant Other: boyfriend. Care significantly affected by the following chronic conditions: stomach issues. 08/31 12:14 Order name: CBC with Diff; Complete Time: 13:31 [facility] 08/31 12:14 Order name: Comprehensive Metabolic Panel; Complete Time: 13:31 [facility] 08/31 12:14 Order name: Lipase; Complete Time: 13:32 [facility] 08/31 13:26 Order name: Urine --Ancillary (enter results); Complete Time: 14:08 08/31 13:26 Order name: Urine Dipstick-Ancillary; Complete Time: 13:32 EDMS 08/31 13:32 Order name: Troponin High Sensitivity; Complete Time: 14:08 [facility] 08/31 12:14 Order name: Chest Single View XRAY; Complete Time: 14:08 [facility] 08/31 13:32 Order name: CT Chest For PE Angio; Complete Time: 14:49 [facility] 08/31 12:14 Order name: Urine Dipstick-Ancillary (obtain specimen); Complete Time: 13:27 [facility] 08/31 12:14 Order name: Urine Test (obtain specimen); Complete Time: 13:27 [facility] 08/31 13:32 Order name: EKG; Complete Time: 13:33 [facility] 08/31 13:32 Order name: EKG - Nurse/Tech; Complete Time: 13:42 [facility] 08/31 14:32 Order name: PO challenge; Complete Time: 14:49 [facility] EC:33 Rate is 67 beats/min. Rhythm is regular. QRS [place] is Normal. PA interval is normal. QRS kanu interval is normal. QT interval is normal. No Q waves. T waves are Normal. No ST changes noted. Clinical impression: Normal ECG and No evidence of ischemia. Interpreted by me. Reviewed by me. Administered Medications: 12:24 Drug: NS 0.9% 1000 ml Route: IV; Rate: 1 bolus; Site: right antecubital; hb 13:42 Drug: Pepcid (famotidine) 20 mg Route: IVP; Site: right antecubital; ko1 14:49 CANCELLED (Other Intervention Used): Zofran (Ondansetron) 2 mg IVP once; over 2 minutes ko1 14:49 Drug: Zofran (Ondansetron) 4 mg Route: IVP; Site: right antecubital; ko1 14:49 CANCELLED (Duplicate Order): Zofran (Ondansetron) 4 mg IVP once; over 2 minutes kanu Disposition Summary: 08/31/22 14:50 Discharge Ordered Location: Home [facility] Problem: new kanu Symptoms: have improved kanu Condition: Stable kanu Diagnosis - Dysphagia, unspecified kanu - Urticaria, unspecified kanu Followup: kanu - With: Private Physician - When: 2 - 3 days - Reason: Recheck today's complaints, Continuance of care, Re-evaluation by your physician Followup: kanu - With: - When: 2 - 3 days - Reason: Recheck today's complaints, Re-evaluation by your physician Discharge Instructions: - Discharge Summary Sheet kanu - Dysphagia kanu - Hives kanu - Rash, Adult kanu - Hives, Lnow-zy-Lllm [facility] Forms: - Medication Reconciliation Form [facility] - Thank You Letter kanu - Antibiotic Education [facility] - Prescription Opioid Use [facility] Prescriptions: - Benadryl 25 mg Oral Capsule - take 1 capsule by ORAL route every 6 hours As needed; 30 tablet; Refills: 0, [facility] Product Selection Permitted - Pepcid 20 mg Oral Tablet - take 1 tablet by ORAL route every 12 hours for 21 days; 42 tablet; Refills: 0, [facility] Product Selection Permitted - Zofran 4 mg Oral Tablet - take 1 tablet by ORAL route every 12 hours As needed; 20 tablet; Refills: 0, [facility] Product Selection Permitted Signatures: Dispatcher [employer] EDMS Jimmy Spicer MD MD cha Smirch, Shelby RN RN Jo Gannon RN RN hb Oliver, Kathy, RN RN ko1 Corrections: (The following items were deleted from the chart) 12:31 12:05 Allergies: No Known Allergies; ko1 12:31 12:30 Allergies: Tramadol HCl; ko1 ko1 14:49 14:45 Zofran (Ondansetron) 2 mg IVP once; over 2 minutes ordered. ko1 ko1 14:49 14:49 Zofran (Ondansetron) 4 mg IVP once; over 2 minutes ordered. kanu bobby
[2022-08-31 16:09] VITALS: TEMP 97.9
[2022-08-31 16:11] VITALS: O2SAT 99
[2022-08-31 16:14] VITALS: BP 112/74
--- NOTE | 2022-09-03 17:22 | EKG ---
Test Date: 2022-08-31 Test Time: 13:41:36 Measurement Advisor: ESTELLE MEASUREMENT RESULTS: Intervals: Rate: 67 AL: 126 QRSD: 84 QT: 400 QTc: 422 [place]: P: 6 AL: 126 QRS: 53 T: 48 INTERPRETIVE STATEMENTS: Normal sinus rhythm with sinus arrhythmia Normal ECG Compared to ECG 11/03/2021 03:41:46 Myocardial infarct finding no longer present T-wave abnormality no longer present Possible ischemia no longer present Electronically Signed On 09-03-22 17:15:05 [employer] by Yuriy Alves
== END 2022-08-31 15:35 | disposition home or self-care (01) ==
LOC: ER 11:50
DX: R13.10 Dysphagia, unspecified (principal); L50.9 Urticaria, unspecified
CPT/HCPCS: 36415; 71045; 71275; 80053; 81003; 81025; 83690; 84484; 85025; 93005; 96374; 96375; 99284; J2405; J7030; Q9967

== ENCOUNTER 2024-04-04 02:18 | Emergency (ER) | payer OTHER ==
[2024-04-04] MEDS ORDERED: NA CHLORIDE 0.9% 1,000 ML ONE (02:40)
[2024-04-04] MEDS ORDERED: MORPHINE 4 MG/ML SYR ONE (02:40)
[2024-04-04] MEDS ORDERED: ONDANSETRON 4 MG/2 ML VIAL ONE (02:40)
[2024-04-04 02:59] LABS: Absolute Lymphocytes (CBC) 0.5 K/uL (0.7-4.9); Absolute Monocytes 0.4 K/uL (0.1-1.3); Absolute Neutrophil 8.4 K/uL (1.8-8.0); Basophils % 0.3 % (0-1.3); Eosinophils % 0.4 % (0-4.4); Hematocrit 46.8 % (36.0-45.0); Hemoglobin 16.2 g/dL (12.0-15.0); Lymphocytes % 4.9 % (15.3-44.8); MCH 30.3 pg (27.0-35.0); MCHC 34.6 g/dL (32.0-36.0); MCV 87.5 fL (80-100); MPV 8.7 fL (7.6-11.3); Monocytes % 4.7 % (3.3-12.3); Neutrophils % 89.7 % (41.7-73.7); Nucleated Red Blood Cells % 0.2 % (0-0); Platelets 214 thou/uL (152-406); RBC Red Blood Cell Count 5.35 M/uL (3.86-4.86)
[2024-04-04 03:12] LABS: Albumin 3.9 g/dL (3.4-5.0); Albumin/Globulin Ratio 1.2 (1.1-1.8); Anion Gap 10.5 mEq/L (5.0-15.0); Globulin 3.3 g/dL (2.3-3.5); Potassium 3.5 mEq/L (3.5-5.1); Protein, Total 7.2 g/dL (6.4-8.2); Troponin High Sensitivity 4.5 pg/mL (<58.9)
[2024-04-04 03:44] LABS: Blood Morphology Comment NOT SEEN (NOT SEEN); Platelet Estimate ADEQ; White Blood Cell Scan OK (OK)
[2024-04-04 04:10] LABS: Specific Gravity 1.023 (1.005-1.030); Sqamous Epithelial <5 /HPF (None Seen); Urine Bacteria None Seen /HPF (<20); Urine Bilirubin NEGATIVE (Negative); Urine Blood Negative (Negative); Urine Clarity Turbid (Clear); Urine Color Yellow (Yellow); Urine Culture Reflex Order NOT NEEDED; Urine Glucose NEGATIVE (Negative); Urine Ketones 1+ (Negative); Urine Microscopic Reflex YN ORDER UMIC; Urine Mucus Slight /HPF (None Seen); Urine Nitrite NEGATIVE (Negative); Urine Protein NEGATIVE (Negative); Urine RBC <5 /HPF (None Seen); Urine Urobilinogen 1+ (Normal); Urine WBC <5 /HPF (<5); Urine pH 6.5 (5.0-7.0)
--- NOTE | 2024-04-04 05:18 | EDPHYS ---
Physician Documentation [facility] Name: Sobeida Kam Age: 34 yrs Sex: Female : 1990 Arrival Date: 04/04/2024 Time: :18 Bed 5 Private MD: ED Physician Chris Hernandez HPI: 04/04 03:00 This 34 yrs old Female presents to ER via Ambulatory with complaints of Abdominal Pain, rt Nausea/Vomiting, Chest Pain. 03:00 Patient with remote cholecystectomy presents to the ED with right upper quadrant pain, rt nonradiating. Associated nausea, vomiting, chest pain. Denies other acute complaints at this time, symptoms are moderate in severity, no other aggravating factors.. Historical: - Allergies: 02:33 tramadol; iw - PMHx: 02:33 UNDIAGNOSED STOMACH ISSUE; iw - PSHx: 02:33 Cholecystectomy; iw - Immunization history:: Adult Immunizations not up to date. - Infectious Disease History:: Denies. - Social history:: Smoking status: Reported history of juuling and/or vaping. - Family history:: not pertinent. ROS: 03:00 Constitutional: Negative for fever, chills, and weight loss, Respiratory: Negative for rt shortness of breath, cough, wheezing, and pleuritic chest pain, MS/Extremity: Negative for injury and deformity, Skin: Negative for injury, rash, and discoloration, Neuro: Negative for headache, weakness, numbness, tingling, and seizure, 03:00 Cardiovascular: Positive for chest pain, Negative for edema, 03:00 Abdomen/GI: Positive for abdominal pain, nausea and vomiting, Exam: 03:00 Constitutional: This is a well developed, well nourished patient who is awake, alert, rt and in no acute distress. Head/Face: Normocephalic, atraumatic. Chest/axilla: Normal chest wall appearance and motion. Nontender with no deformity. No lesions are appreciated. Cardiovascular: Regular rate and rhythm with a normal S1 and S2. No gallops, murmurs, or rubs. Normal PMI, no JVD. No pulse deficits. Respiratory: Lungs have equal breath sounds bilaterally, clear to auscultation and percussion. No rales, rhonchi or wheezes noted. No increased work of breathing, no retractions or nasal flaring. Skin: Warm, dry with normal turgor. Normal color with no rashes, no lesions, and no evidence of cellulitis. MS/ Extremity: Pulses equal, no cyanosis. Neurovascular intact. Full, normal range of motion. Neuro: Awake and alert, GCS 15, oriented to person, place, time, and situation. Cranial nerves II-XII grossly intact. Motor strength 5/5 in all extremities. Sensory grossly intact. Cerebellar exam normal. Normal gait. 03:00 ECG was reviewed by the Attending Physician. 03:00 Abdomen/GI: Tenderness to the right upper quadrant without guarding, rebound, distention, Vital Signs: 02:32 BP 109 / 79; Pulse 98; Resp 18; Temp 97.9; Pulse Ox 99% on R/A; Weight 63.5 kg; Height iw 5 ft. 10 in. ; Pain 8/10; 03:20 BP 87 / 50; Pulse 81; Resp 18; Pulse Ox 99% ; jj7 04:20 BP 101 / 58; Pulse 78; Resp 17; Pulse Ox 98% ; jj7 05:26 BP 91 / 63; Pulse 75; Resp 18; Temp 98.1; Pulse Ox 99% ; Pain 0/10; jj7 02:32 Body Mass Index 20.09 (63.50 kg, 177.8 cm) iw 02:32 Pain Scale: Adult iw 05:26 Pain Scale: Adult jj7 MDM: 02:36 Patient medically screened. rt 05:45 Differential diagnosis: Nonspecific abdominal pain, gastritis, enteritis, pancreatitis. rt Data reviewed: vital signs, nurses notes, lab test result(s), EKG, radiologic studies. Consideration of Admission/Observation Escalation of care including admission/observation considered. I considered the following discharge prescriptions or medication management in the emergency department Medications were administered in the Emergency Department. See MAR. Independent interpretation of the following test(s) in the Emergency Department CT Scan: My interpretation is No bowel obstruction seen on my interpretation of CT scan images. Test considered but Not performed: Ultrasound Pain is in the upper abdomen, do not suspect ovarian pathology, ultrasound is not indicated. Counseling: I had a detailed discussion with the patient and/or guardian regarding the historical points, exam findings, and any diagnostic results supporting the discharge/admit diagnosis, lab results, radiology results, the need for outpatient follow up, to return to the emergency department if symptoms worsen or persist or if there are any questions or concerns that arise at home. Response to treatment: the patient's symptoms have markedly improved after treatment. 04/04 02:37 Order name: CBC with Diff; Complete Time: 04:18 rt 04/04 02:37 Order name: CMP; Complete Time: 04:18 rt 04/04 02:37 Order name: Lipase; Complete Time: 04:18 rt 04/04 02:37 Order name: Urinalysis w/ reflexes; Complete Time: 04:18 rt 04/04 02:37 Order name: Test, Serum; Complete Time: 04:18 rt 04/04 02:37 Order name: Troponin High Sensitivity; Complete Time: 04:18 rt 04/04 03:44 Order name: CBC Smear Scan; Complete Time: 04:18 EDMS 04/04 02:37 Order name: CT Abd/Pelvis - IV Contrast Only rt 04/04 02:37 Order name: IV Saline Lock; Complete Time: 02:47 rt 04/04 02:37 Order name: Labs collected and sent; Complete Time: 02:47 rt 04/04 02:37 Order name: EKG - Nurse/Tech; Complete Time: 02:47 rt EC:00 Rate is 83 beats/min. Rhythm is regular, Normal Sinus Rhythm with No ectopy. QRS [place] rt is Normal. [place] interval is normal. QRS interval is normal. QT interval is normal. No Q waves. T waves are Normal. No ST changes noted. Interpreted by me. Administered Medications: 02:48 Drug: NS 0.9% IV 1000 ml IV at 1 bolus Per protocol; 1000 mL bolus Route: IV; Rate: 1 iw bolus; Site: right antecubital; 03:36 Follow up: IV Status: Completed infusion jj7 02:48 Drug: Ondansetron IVP 4 mg IVP once; over 2 minutes Route: IVP; Site: right antecubital;iw 05:28 Follow up: Response: Marked relief of symptoms; Nausea is decreased jj7 02:48 Drug: morphine IVP or IV 4 mg IVP once over 4 mins Route: IVP; Infused Over: 4 mins; iw Site: right antecubital; 05:28 Follow up: Response: Marked relief of symptoms; Pain is decreased jj7 Disposition Summary: 04/04/24 05:17 Discharge Ordered Notes: Location: Home rt Problem: an acute exacerbation rt Symptoms: have improved rt Condition: Stable rt Diagnosis - Abdominal pain, unspecified rt Followup: rt - With: Private Physician - When: 2 - 3 days - Reason: Discharge Instructions: - Discharge Summary Sheet rt - Abdominal Pain, Adult rt Forms: - Medication Reconciliation Form rt - Antibiotic Education rt - Prescription Opioid Use rt - Patient Portal Instructions rt - Leadership Thank You Letter rt Prescriptions: - acetaminophen-codeine 300-30 mg Oral tablet - take 1 tablet ORAL route every 6 hours as needed for pain; 15 tablet; Refills: rt 0, Product Selection Permitted - ondansetron 4 mg Oral Tablet,disintegrating - take 1 tablet ORAL route every 6 hours as needed for nausea; 15 tablet; rt Refills: 0, Product Selection Permitted Signatures: Dispatcher [employer] Janna Francisco, RN LEMUEL iw Chris Hernandez MD MD rt Steph Joe RN jj7 Corrections: (The following items were deleted from the chart) 02:37 02:37 Abdomen Pelvis W Con+CT.RAD.BRZ ordered. EDMS EDMS
--- NOTE | 2024-04-04 05:18 | ER ---
Nurse's Notes [facility] Name: Sobeida Kam Age: 34 yrs Sex: Female : 1990 Arrival Date: 04/04/2024 Time: 02:18 Bed 5 Private MD: Diagnosis: Abdominal pain, unspecified Presentation: 04/04 02:32 Chief complaint: Patient states: RUQ pain for a few hours, vomiting yellow bile, pain iw also in midsternal area 8/10, sharp. Coronavirus screen: At this time, the client does not indicate any symptoms associated with coronavirus-19. Ebola Screen: No symptoms or risks identified at this time. Initial Sepsis Screen: Does the patient meet any 2 criteria? No. Patient's initial sepsis screen is negative. Does the patient have a suspected source of infection? No. Patient's initial sepsis screen is negative. Risk Assessment: Do you want to hurt yourself or someone else? Patient reports no desire to harm self or others. Onset of symptoms was April 04, 2024. 02:32 Method Of Arrival: Ambulatory iw 02:32 Acuity: HINA 3 iw Historical: - Allergies: 02:33 tramadol; iw - PMHx: 02:33 UNDIAGNOSED STOMACH ISSUE; iw - PSHx: 02:33 Cholecystectomy; iw - Immunization history:: Adult Immunizations not up to date. - Infectious Disease History:: Denies. - Social history:: Smoking status: Reported history of juuling and/or vaping. - Family history:: not pertinent. Screenin:38 [facility] ED Fall Risk Assessment (Adult) History of falling in the last 3 months, iw including since admission No falls in past 3 months (0 pts) Confusion or Disorientation No (0 pts) Intoxicated or Sedated No (0 pts) Impaired Gait No (0 pts) Mobility Assist Device Used No (0 pt) Altered Elimination No (0 pt) Score/Fall Risk Level 0 - 2 = Low Risk Oriented to surroundings, Maintained a safe environment. Abuse screen: Denies threats or abuse. Nutritional screening: No deficits noted. Tuberculosis screening: No symptoms or risk factors identified. Assessment: 02:36 General: Appears uncomfortable, Behavior is calm, cooperative. Pain: Complains of pain iw in right upper quadrant Pain radiates to mid-sternal area Pain currently is 8 out of 10 on a pain scale. Quality of pain is described as sharp, Pain began 3 hours ago. Is continuous. Neuro: Level of Consciousness is awake, alert, obeys commands, Oriented to person, place, time, situation, Moves all extremities. Full function. Cardiovascular: Patient's skin is warm and dry. Respiratory: Respiratory effort is even, unlabored, Respiratory pattern is regular, symmetrical. GI: Abdomen is flat, non-distended, Abd is soft X 4 quads Reports upper abdominal pain, nausea, vomiting. Derm: Skin is intact, is healthy with good turgor. Musculoskeletal: Range of motion: intact in all extremities. Vital Signs: 02:32 BP 109 / 79; Pulse 98; Resp 18; Temp 97.9; Pulse Ox 99% on R/A; Weight 63.5 kg; Height iw 5 ft. 10 in. ; Pain 8/10; 03:20 BP 87 / 50; Pulse 81; Resp 18; Pulse Ox 99% ; jj7 04:20 BP 101 / 58; Pulse 78; Resp 17; Pulse Ox 98% ; jj7 05:26 BP 91 / 63; Pulse 75; Resp 18; Temp 98.1; Pulse Ox 99% ; Pain 0/10; jj7 02:32 Body Mass Index 20.09 (63.50 kg, 177.8 cm) iw 02:32 Pain Scale: Adult iw 05:26 Pain Scale: Adult jj7 ED Course: 02:22 Patient arrived in ED. gm2 02:23 Chris Hernandez MD is Attending Physician. rt 02:33 Triage completed. iw 02:33 Arm band placed on. iw 02:36 Janna Escalante, RN is Primary Nurse. iw 02:38 Inserted saline lock: 22 gauge in right antecubital area, using aseptic technique. iw Blood collected. Flushed with 10 mL NS IV inserted by ROX [place]. 03:59 Test, Serum Sent. sa1 04:02 Urinalysis w/ reflexes Sent. sa1 04:25 CT Abd/Pelvis - IV Contrast Only In Process Unspecified. EDMS 05:26 Patient has correct armband on for positive identification. Adult w/ patient. Provided jj7 Education on: MEDICATIONS. 05:26 No provider procedures requiring assistance completed. IV discontinued, intact, jj7 bleeding controlled, No redness/swelling at site. Pressure dressing applied. Administered Medications: 02:48 Drug: NS 0.9% IV 1000 ml IV at 1 bolus Per protocol; 1000 mL bolus Route: IV; Rate: 1 iw bolus; Site: right antecubital; 03:36 Follow up: IV Status: Completed infusion jj7 02:48 Drug: Ondansetron IVP 4 mg IVP once; over 2 minutes Route: IVP; Site: right antecubital;iw 05:28 Follow up: Response: Marked relief of symptoms; Nausea is decreased jj7 02:48 Drug: morphine IVP or IV 4 mg IVP once over 4 mins Route: IVP; Infused Over: 4 mins; iw Site: right antecubital; 05:28 Follow up: Response: Marked relief of symptoms; Pain is decreased jj7 Medication: 02:37 VIS not applicable for this client. iw Outcome: 05:17 Discharge ordered by . rt 05:26 Discharged to home ambulatory, with family, jj7 05:26 Condition: improved 05:26 Discharge instructions given to patient, Instructed on discharge instructions, medication usage, Demonstrated understanding of instructions, medications, Prescriptions given X 2, 05:29 Patient left the ED. jj7 Signatures: Dispatcher [employer] EDJanna Ledesma RN RN iw Johnson, Juwairiyah, RN RN jj7 Chris Hernandez MD MD rt Mitra Negrete gm [facility]
[2024-04-04 05:39] VITALS: BP 91/63; TEMP 98.1; O2SAT 99
--- NOTE | 2024-04-05 12:50 | EKG ---
Test Date: 2024-04-04 Test Time: 02:38:20 [employer]end Plant Operator: MEASUREMENT RESULTS: Intervals: Rate: 83 [place]: 128 QRSD: 80 QT: 378 QTc: 444 [place]: P: 37 [place]: 128 QRS: 60 T: 71 INTERPRETIVE STATEMENTS: Normal sinus rhythm Normal ECG Compared to ECG 08/31/2022 13:41:36 Sinus arrhythmia no longer present Electronically Signed On 04-05-24 12:47:41 CDT by Yuriy Alves
--- NOTE | 2024-04-05 15:00 | RAD REPORT ---
EXAM: CT abdomen and pelvis with IV contrast CLINICAL DATA: 34 years Female ABD PAIN TECHNICAL DATA: Axial CT imaging of the abdomen and pelvis was performed following the administration of intravenous contrast.. Oral contrast was not administered. Sagittal and coronal reconstructed images were then performed. The CT study is perf ormed according to ALARA (as low as reasonably achievable) or ALARA/IMAGE GENTLY, with automatic adjustment of mA and/or kV ac cording to patient size. Performed on: 04/04/2024 at 4:30 AM. Comparison: CT abdomen and pelvis performed on 11/03/2021 FINDINGS: Lung bases: The lung bases are clear. The heart is normal in size. Liver:The liver measures approximately 17.9 cm in craniocaudal dimension. No focal hepatic abnormalit ies are identified. Liver attenuation is within normal limits. The hepatic and portal veins are patent. Spleen:The spleen is normal in size, configuration and attenuation. Gallbladder and bile duct: The gallbladder is surgically absent There is no biliary ductal dilatation . Pancreas: The pancreas is grossly normal in size and configuration. Adrenal Glands:The adrenal glands are normal in size and configuration. Kidneys:The kidneys are normal in size and configuration. There is no evidence of hydronephrosis. The re is no evidence of nephrolithiasis. No definite solid or cystic renal mass lesions are identified. Stomach:The stomach is grossly normal. There is no definite hiatal hernia. Bowel:The bowel gas pattern is non specific and non obstructive. There is some liquid feces in the ce cum and ascending colon and there are some mildly distended but nondilated fluid-filled distal small bowel loops. This finding is nonspecific but can be seen with enteritis. Appendix: The appendix is normal. Free air:There is no evidence of free air. Free fluid: There is no evidence of free fluid. Vasculature: The aorta is normal in caliber and contour. The inferior vena cava is grossly unremarkab le. Lymphadenopathy: No pathologic lymphadenopathy is identified. Bladder: The bladder is partially distended and smooth in contour. Reproductive: The uterus is grossly within normal limits. An intrauterine device is present in satisf actory position. Bones: No acute osseous abnormalities are identified. Soft tissues: No acute soft tissue abnormalities are identified. There is a tiny fat-containing ventr al umbilical hernia. IMPRESSION: [place] [id number] [address], [facility] [phone] Final Radiology Report Name: TRACY PALACIOS Age: 34y Date: 04/04/2024 2:37 AM : 1990 Study: Abdomen Pelvis W Contrast Requesting Physician: Chris Hernandez [id number] NETTE PALACIOS Page 1 of 2 [id number] Abdomen Pelvis W Contrast 1. No evidence of acute intra-abdominal or intrapelvic pathology. 2. There is some liquid feces in the cecum and ascending colon and there are some mildly distended bu t nondilated fluid-filled distal small bowel loops. This finding is nonspecific but can be seen with enteritis. 3. Status post cholecystectomy. 4. Intrauterine device present in satisfactory position. Electronically signed by: Vanessa Acosta DO 04/04/2024 04:55 AM CDT Transcribed Date/Time: 04/05/2024 2:59 PM
== END 2024-04-04 05:29 | disposition home or self-care (01) ==
LOC: ER 02:18
DX: R10.11 Right upper quadrant pain (principal); R07.9 Chest pain, unspecified; R11.2 Nausea with vomiting, unspecified
CPT/HCPCS: 96361; 93005; 85025; 81001; 36415; 84703; 84484; 83690; 80053; 74177; 96375; 96374; 99284; Q9967; J2405; J7030